=== PATIENT | female | born 1980 | race Caucasian/White ===

== ENCOUNTER 2023-02-24 19:37 | Emergency (ER) | payer SELFPAY ==
[2023-02-24 19:40] VITALS: BP 154/94; PULSE 80; RESP 18; TEMP 36.6; O2SAT 98; BMI 25.1
--- NOTE | 2023-02-24 19:52 | ED.SKABFB1 ---
HPI - Skin/Abscess/Foreign Bdy General Chief complaint: Skin/Abscess/Foreign Body Stated complaint: RASH Time Seen by Provider: 02/24/23 19:46 Source: patient Mode of arrival: walk-in Limitations: no limitations History of Present Illness HPI narrative: The patient have no significant past medical history coming to the ER with a rash that developed Tuesday which is 4 days ago on the right side of her arm then it spread to the right side of her face it is itchy as well as it is not associated with any other complaints of fever chills or any other concerns She did try some Benadryl and she was doing some yard work the day Patient denies any other complaints There was no history of any new foods or any new environmental changes Related Data Previous Rx's Medication Instructions Recorded diphenhydramine HCl 25 mg capsule 25 mg PO Q8H PRN allergic reaction 02/24/23 (Benadryl) #10 caps famotidine 20 mg tablet (Pepcid) 20 mg PO BID #10 tabs 02/24/23 prednisone 50 mg tablet 50 mg PO DAILY 6 days #6 tabs 02/24/23 Allergies Allergy/AdvReac Type Severity Reaction Status Date / Time No Known Drug Allergies Allergy Verified 02/24/23 19:43 Review of Systems ROS Status of ROS 10 or more systems reviewed and unremarkable except as noted in history and below [facility] Social History Smoking status: Current every day smoker Exam Narrative Exam Narrative: Nurses notes and vital signs reviewed and patient is not hypoxic. General: Well-appearing and in no apparent distress. Skin: Warm, dry, no pallor noted. No rash. Head: Normocephalic, atraumatic. Neck: Supple, non-tender. Eye: Pupils are equal, round and EOMI. No scleral icterus. Ears, Nose, Mouth, and Throat: TM are clear, no nasal mucosal hypertrophy. Oral mucosa is moist, no posterior oropharynx erythema, uvula is mid-line Cardiovascular: Regular Rate and Rhythm without murmur, gallop or rub. Respiratory: No accessory muscle use or respiratory distress. Lungs are clear to auscultation, no wheezing, rales or rhonchi Chest Wall: no tenderness Back: No midline thoracic or lumbar vertebral tenderness. No CVA tenderness Musculoskeletal: normal ROM, no calf or popliteal tenderness, no lower extremity edema/swelling GI: Abdomen is soft, non-distended. Normal bowel sounds. No masses appreciated. No tenderness to palpation. No rebound, guarding, or rigidity noted. Neurological: A&O x4. No cranial nerve dysfunction observed. No truncal ataxia. Moves all extremities. Sensation intact. Psychiatric: Cooperative and interactive. Normal mood and affect. Skin examination On the exterior surface of the right arm as well as the right side of the face the patient have maculopapular rash that is not vesicular not associated with any redness hotness or any signs of infection Constitutional Vital Signs, click to edit/add: Last Vital Signs Temp 98 F 02/24/23 19:40 Pulse 80 02/24/23 19:40 Resp 18 02/24/23 19:40 BP 154/94 H 02/24/23 19:40 Pulse Ox 98 02/24/23 19:40 O2 Del Method Room Air 02/24/23 19:40 Course Vital Signs Vital signs: Vital Signs Temperature 98 F 02/24/23 19:40 Pulse Rate 80 02/24/23 19:40 Respiratory Rate 18 02/24/23 19:40 Blood Pressure 154/94 H 02/24/23 19:40 Pulse Oximetry 98 02/24/23 19:40 Oxygen Delivery Method Room Air 02/24/23 19:40 Temperature 98 F 02/24/23 19:40 Pulse Rate 80 02/24/23 19:40 Respiratory Rate 18 02/24/23 19:40 Blood Pressure 154/94 H 02/24/23 19:40 Pulse Oximetry 98 02/24/23 19:40 Oxygen Delivery Method Room Air 02/24/23 19:40 MDM - Skin/Abscess/Foreign Bdy MDM Narrative Medical decision making narrative: The patient presentation is mostly secondary to contact dermatitis the patient right now was started on prednisone as well as Pepcid and Benadryl instructed to avoid any allergen Also to come back to us in case of any new symptoms of concern including fever or any progression of her symptoms The patient is to follow up with primary care physician in next 2-3 days or to return to the emergency department should any of the signs or symptoms worsen or new symptoms develop. The patient agrees with the following Diagnosis and Treatment plan and the patient will be discharged home. Discharge Plan Discharge Chief Complaint: Skin/Abscess/Foreign Body Clinical Impression: Contact dermatitis Patient Disposition: Home, Self-Care Time of Disposition Decision: 19:53 Condition: Good Mode of Transportation: Private Vehicle Prescriptions / Home Meds: New prednisone 50 mg tablet 50 mg PO DAILY 6 Days Qty: 6 0RF famotidine [Pepcid] 20 mg tablet 20 mg PO BID Qty: 10 0RF diphenhydramine HCl [Benadryl] 25 mg capsule 25 mg PO Q8H PRN (Reason: allergic reaction) Qty: 10 0RF Instructions: Contact Dermatitis (ED) Stand Alone Forms: Portal Instructions Referrals: Physician,Non-Staff, MD [Primary Care Provider] - 1 week
[2023-02-24 19:54] VITALS: O2SAT 99
--- NOTE | 2023-02-24 19:57 | PC.NURSE ---
Patient c/o rash to right side of face,neck, behind right ear spreading to bilateral arms. denies any use of new products, new clothing, bedding, or new foods. states she has not been in the forest but she has [place]rian behind her house that her dogs play in and possibly might have caught something from them. rash is slightly raised on right cheek and flat everywhere else. no drainage. states it is itching and painful. patient has not had any medications today.
[2023-02-24] MEDS: DIPHENHYDRAMINE HCL 25 MG CAPSULE PO (20:05)
[2023-02-24] MEDS: FAMOTIDINE 20 MG TABLET PO (20:05)
[2023-02-24] MEDS: PREDNISONE 20 MG TABLET 40 MG PO (20:05)
== END 2023-02-24 20:20 | disposition home or self-care (01) ==
PROVIDERS: Emergency Provider Emergency Medicine
DX: L25.9 Unspecified contact dermatitis, unspecified cause (principal); F17.210 Nicotine dependence, cigarettes, uncomplicated
CPT/HCPCS: 99283

== ENCOUNTER 2023-12-14 17:07 | Emergency (ER) | payer OTHER, SELFPAY ==
[2023-12-14 17:22] VITALS: BP 139/89; PULSE 83; TEMP 36.7; O2SAT 98; BMI 23.6
--- NOTE | 2023-12-14 17:28 | XR_ITS ---
The [address] [address] Patient Name: PALMA GORDON MRN: [id number] date: 1980 Sex: F Assigned Patient Location: ER Current Patient Location: ER Accession/Order Number: [id number] Exam Date: 12/14/2023 17:38 Report Date: 12/14/2023 18:18 At the request of: NITA BERRY Procedure: XR hand RT min 3V IMAGES REVIEWED: XR hand RT min 3V COMPARISON: None available. CLINICAL INDICATION: right hand/thumb pain FINDINGS/IMPRESSION: Unremarkable radiographic appearance of the right hand/first digit. Electronically authenticated by: SHAHLA CAMPUZANO Date: 12/14/2023 18:18
--- NOTE | 2023-12-14 17:28 | ED_ITS ---
HPI HPI - General Adult General Chief complaint: Extremity Injury, Upper Stated complaint: Upper Extremity Pain Time Seen by Provider: 12/14/23 17:27 Source: patient Mode of arrival: walk-in History of Present Illness HPI narrative: Patient is a 43-year-old female who presents to the emergency department for a 1 month history of pain along the right thumb. She complains of pain with flexion and extension of the right thumb. There has been no swelling, redness or direct injury. 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 No medications taken prior to arrival. She states her boyfriend wanted her to be evaluated which prompted her to come to the ER today after 1 month of symptoms. She has not been evaluated by her PCP or an orthopedist. She is not concerned for . Related Data Previous Rx's ?Medication ?Instructions ?Recorded diphenhydramine HCl 25 mg capsule 25 mg PO Q8H PRN allergic reaction 02/24/23 (Benadryl) #10 caps famotidine 20 mg tablet (Pepcid) 20 mg PO BID #10 tabs 02/24/23 prednisone 50 mg tablet 50 mg PO DAILY 6 days #6 tabs 02/24/23 ketorolac 10 mg tablet 10 mg PO TID PRN pain #10 tabs 12/14/23 prednisone 20 mg tablet 60 mg (3 x 20 mg) PO DAILY 3 days 12/14/23 #9 tabs Allergies Allergy/AdvReac Type Severity Reaction Status Date / Time No Known Drug Allergies Allergy Verified 12/14/23 17:25 Opioid HPI Opioid Management Most Recent Opioid Data: Last Pain Scale 6 12/14/23 17:50 Last MAR Pain Assessment 12/14/23 17:50 Review of Systems ROS Constitutional Denies: fever or chills Ears, nose, mouth, and throat Denies: throat pain or nasal congestion Respiratory Denies: shortness of breath Gastrointestinal Denies: nausea or vomiting Musculoskeletal Reports: extremity pain, joint pain and limited range of motion; Denies: back pain or neck pain Integumentary/Breast Denies: rash Neurological Denies: headache Hematologic/Lymphatic Denies: easy bruising or easy bleeding PFSH PFSH Social History Smoking status: Current every day smoker Exam Narrative Exam Narrative: Gen.: Awake, alert, in no distress Head: Normocephalic, atraumatic ENT: Moist mucous membranes Respiratory: No respiratory distress Extremities: No appreciable swelling, ecchymosis or obvious deformity of the right thumb. Diffusely mildly tender to palpation. Moderate pain with flexion and extension at the MCP joint. Psych: Normal mood and affect Neuro: No focal neuro deficit Skin: Warm, dry, intact Constitutional Vital Signs, click to edit/add: Last Vital Signs Temp 98.0 F 12/14/23 17:22 Pulse 83 12/14/23 17:22 Resp 18 12/14/23 17:22 BP 139/89 12/14/23 17:22 Pulse Ox 98 12/14/23 17:22 O2 Del Method Room Air 12/14/23 17:22 Course Vital Signs Vital signs: Vital Signs Temperature 98.0 F 12/14/23 17:22 Pulse Rate 83 12/14/23 17:22 Respiratory Rate 18 12/14/23 17:22 Blood Pressure 139/89 12/14/23 17:22 Pulse Oximetry 98 12/14/23 17:22 Oxygen Delivery Method Room Air 12/14/23 17:22 Temperature 98.0 F 12/14/23 17:22 Pulse Rate 83 12/14/23 17:22 Respiratory Rate 18 12/14/23 17:22 Blood Pressure 139/89 12/14/23 17:22 Pulse Oximetry 98 12/14/23 17:22 Oxygen Delivery Method Room Air 12/14/23 17:22 Medical Decision Making [facility] Narrative Medical decision making narrative: Exam is consistent with tendinitis, x-rays show no evidence of acute process and the patient is discharged home in a finger splint and Fabricio wrap and remains neurovascularly intact. She is referred to orthopedics. Return to the ER if symptoms change or worsen. Rest, ice, gentle stretching. Short course of steroids and NSAIDs were given for home Medical Records Medical records reviewed: Yes I reviewed the patient's medical records Imaging Data XR hand: Attestation: I have reviewed the pertinent imaging results. Discharge Plan Discharge Stand Alone Forms: Portal Instructions Chief Complaint: Extremity Injury, Upper Clinical Impression: Hand pain, right, Tendinitis Patient Disposition: Home, Self-Care Time of Disposition Decision: 18:23 Condition: Good Prescriptions / Home Meds: New prednisone 20 mg tablet 60 mg PO DAILY 3 Days Qty: 9 0RF ketorolac 10 mg tablet 10 mg PO TID PRN (Reason: pain) Qty: 10 0RF No Action prednisone 50 mg tablet 50 mg PO DAILY 6 Days Qty: 6 0RF famotidine [Pepcid] 20 mg tablet 20 mg PO BID Qty: 10 0RF diphenhydramine HCl [Benadryl] 25 mg capsule 25 mg PO Q8H PRN (Reason: allergic reaction) Qty: 10 0RF Print Language: Citizen [place] Instructions: Tendinitis (ED) Referrals: MILTON TALAVERA [Primary Care Provider] - 1 week Candelario Carrillo MD [Physician] - 1 week
[2023-12-14] MEDS: HYDROCODONE/ACET 5-325 MG TABLET 1 TAB PO (17:50)
[2023-12-14] MEDS: PREDNISONE 20 MG TABLET 60 MG PO (17:50)
== END 2023-12-14 18:33 | disposition home or self-care (01) ==
PROVIDERS: Emergency Provider Emergency Medicine; PCP Nurse Practitioner Family
DX: M77.8 Other enthesopathies, not elsewhere classified (principal); M79.641 Pain in right hand; F17.200 Nicotine dependence, unspecified, uncomplicated
CPT/HCPCS: 29130; 73130; 99283

== ENCOUNTER 2023-12-28 06:58 | Outpatient (OUT) | payer OTHER, SELFPAY ==
--- NOTE | 2023-12-28 07:00 | CA_ITS ---
Patient Name: PALMA GORDON MR#: [id number] : 1980 Exam Date: 12/28/2023 Ordering Doctor: MILTON TALAVERA CNP ECHOCARDIOGRAM REPORT PROCEDURE: CA ECHO DOPPLER COMPLETE INDICATIONS: Cardiac murmur, smoker COMPARISON: None. DESCRIPTION: COMPLETE ECHOCARDIOGRAM Real-time transthoracic echocardiography with 2D, M-mode, spectral and color flow Doppler performed. QUALITY: Technical quality was good. 59 , 117#, BP 142/76 LEFT VENTRICLE: Normal chamber size. Normal left ventricular wall thickness. Normal systolic function. LV EF: Normal left ventricular ejection fraction, (>55%). DIASTOLIC: Normal diastolic function. ATRIAL SEPTUM: Visually appears intact. LEFT ATRIUM: Normal chamber size. RIGHT ATRIUM: Normal chamber size. RIGHT VENTRICLE: Normal chamber size. Normal right ventricular systolic function. TRICUSPID VALVE: Normal mobility and thickness. No stenosis with trivial regurgitation. No evidence of pulmonary hypertension. RVSP 29 mmHg MITRAL VALVE: Normal mobility and thickness. No evidence of mitral valve stenosis. Mild mitral annular calcification. Trivial mitral regurgitation. AORTIC VALVE: No visible sclerosis. Normal leaflet mobility. No evidence of aortic valve stenosis. No aortic regurgitation. AORTIC ROOT: Normal diameter and appearance. PULMONIC VALVE: Normal thickness and mobility. No stenosis. Trivial regurgitation. PERICARDIUM: No evidence of pericardial effusion. IVC: Collapses with inspirations. PLEURA: CONCLUSION: 1. Normal ventricular size and function. LVEF is estimated at 60 to 65%. 2. No significant valvular dysfunction. 3. Normal right-sided pressures. 4. No pericardial effusion. Adult Echocardiography Procedure Report Left Ventricle LVEDD (3.7 - 5.6 cm): 3.48 cm LVESD (2.2 - 4.0 cm): 2.37 cm LVIVS thickness (0.6 - 1.2 cm): 0.91 cm LVPW thickness (0.5 - 1.0 cm): 0.79 cm e': 0.14 m/s E - e': 6.61 LVOT Max Gradient: 3.25 mm[Hg] LVOT Area (cm2): 0.90 m/s Peak Velocity (LVOT): 0.90 m/s Mean Velocity (LVOT): 0.59 m/s LVOT Diameter 2.06 cm Left Atrium LA Volume Index (2D A2C): 27.96 ml/m2 Left Atrium Systolic Dimension: 3.01 cm Mitral Valve MV E to A Ratio: 1.32 Mitral Valve A-Wave Peak Velocity: 0.69 m/s Mitral Valve E-Wave Peak Velocity: 0.90 m/s Right Ventricle Aorta AO Root Diam: 3.21 cm Aortic Valve AoV Area (Peak Bharath): 2.89 cm2, 2.89 cm2 AoV Area (VTI): 3.29 cm2, 3.29 cm2 Peak Velocity(Antegrade Flow): 1.04 m/s Peak Gradient(Antegrade Flow): 4.31 mm[Hg] Mean Velocity(Antegrade Flow): 0.71 m/s Mean Gradient(Antegrade Flow): 2.29 mm[Hg] Velocity Time Integral: 22.40 cm Tricuspid Valve Peak Velocity (Regurgitant Flow): 2.57 m/s Pulmonic Valve Peak Gradient: 3.16 mm[Hg], 4.56 mm[Hg] Right Atrium Dictated by: Jim Escalante M.D. on 12/30/2023 at 08:57 Approved by: Jim Escalante M.D. on 12/30/2023 at 09:01
--- OUTSIDE RECORDS SUMMARY | 2023-12-28 07:03 | XMS_ITS | CCD ---
Author Organization [facility] Care Team Providers Care Ac/Dc Rewinder Name Role Phone REQUEST, DR NONE LISTED Primary Care Unavaila ble DORENE, DR ADAL Hedrick Consulting Unavailable CATHERINE, DR ADAL Hedrick Attending Unavailable CATHERINE, DR ADAL Hedrick Admitting Unavailable DONOVAN, DR MILDRED Simental Attending Unavailabl e DONOVAN, DR MILDRED Simental Admitting Unavailabl e DONOVAN, DR MILDRED Simental Consulting Unavailabl e REQUEST, NONE LISTED Primary Care Unavaila ble Results Test Name Value Interpretation Reference Range Facility CBC AUTO DIFFon 12-13-2020 BASO # 0.0 103/ul Normal 0.0-0.1 [facility] Comment on above: Performed By: #### C BC #### [facility] [address] [place], [place] [address] Diandra Samina Basophils/100 WBC (Bld) 0.1 % Critically low 0.2-2.0 [facility] Comment on above: Performed By: #### C BC #### [facility] [address] [place], [place] [address] Diandra Samina EO # 0.0 103/ul Normal 0.0-0.7 [facility] Comment on above: Performed By: #### C BC #### [facility] [address] [place], [place] [address] Diandra Samina Eosinophils/100 WBC (Bld) 0.0 % Critically low 0.9-7.0 [facility] Comment on above: Performed By: #### C BC #### [facility] [address] [place], [place] [address] Diandra Samina Erythrocyte distribution width (RBC) [Ratio] 15.4 % Critically high 11.0-15.0 [facility] Comment on above: Performed By: #### C BC #### [facility] [address] [place] [address] Diandradayna Haas Hematocrit (Bld) [Volume fraction] 38.0 % Normal 36.0-48.0 [facility] Comment on above: Performed By: #### C BC #### [facility] [address] [place] [address] Diandra Samina Hemoglobin (Bld) [Mass/Vol] 12.8 g/dL Normal 12.0-16.0 [facility] Comment on above: Performed By: #### C BC #### [facility] [address] [place] [address] Diandra Samina IG # 0.03 10e3/ul Normal 0.00-0.03 [facility] Comment on above: Performed By: #### C BC #### [facility] [address] [place] [address] Diandra Samina IG % 0.3 % Normal 0.0-0.5 [facility] Comment on above: Performed By: #### C BC #### [facility] [address] [place] [address] Diandra Samina LYMPH # 0.7 103/ul Critically low 1.2-3.[address] [facility] Comment on above: Performed By: #### C BC #### [facility] [address] [place] [address] Diandra Haas Lymphocytes/100 WBC (Bld) 7.1 % Critically low 20.5-60.0 [facility] Comment on above: Performed By: #### C BC #### [facility] [address] [place] [address] Diandra Haas MANUAL DIFF REQ NO Normal [facility] Comment on above: Performed By: #### C BC #### [facility] [address] [place], [place] [address] Diandra Haas MCH (RBC) [Entitic mass] 30.0 pg Normal 26.7-34.0 [facility] Comment on above: Performed By: #### C BC #### [facility] [address] [place] [address] Diandradayna Coleen MCHC (RBC) [Mass/Vol] 33.7 g/dL Normal 29.9-35.2 [facility] Comment on above: Performed By: #### C BC #### [facility] [address] [id number] Diandra Haas MCV (RBC) [Entitic vol] 89.0 fL Normal 81.0-99.0 [facility] Comment on above: Performed By: #### C BC #### [facility] [address] [id number] Diandra Haas MONO # 0.1 103/ul Critically low 0.3-0.[address] [facility] Comment on above: Performed By: #### C BC #### [facility] [address] [place], [place] [address] Diandra Haas Monocytes/100 WBC (Bld) 0.5 % Critically low 1.7-12.0 [facility] Comment on above: Performed By: #### C BC #### [facility] [address] [id number] Diandra Coleen NEUT # 9.1 103/ul Critically high 1.4-6.5 [facility] Comment on above: Performed By: #### C BC #### [facility] [address] [place], [place] [address] Diandra Haas Neutrophils/100 WBC (Bld) 92.0 % Critically high 43.0-75.0 [facility] Comment on above: Performed By: #### C BC #### [facility] [address] [id number] Diandra Haas Platelet mean volume (Bld) [Entitic vol] 9.7 fL Normal 9.5-13.5 [facility] Comment on above: Performed By: #### C BC #### [facility] [address] [place], [place] [address] Diandradayna Coleen PLT 307 103/ul Normal 150-450 [facility] Comment on above: Performed By: #### C BC #### [facility] [address] [id number] Diandra Samina RBC 4.27 106/ul Normal 4.20-5.40 [facility] Comment on above: Performed By: #### C BC #### [facility] [address] [place], [place] [address] Diandra Samina WBC 9.9 103/ul Normal 4.0-11.0 [facility] Comment on above: Performed By: #### C BC #### [facility] [address] [id number] Diandradayna Haas PROF 14(COMP METB)on 021 Albumin [Mass/Vol] 4.1 g/dL Normal 3.5-5.0 [facility] Comment on above: Performed By: #### C MP #### [facility] [address] [place], [place] [address] Diandra Samina Albumin/Globulin [Mass ratio] 1.1 {ratio} Normal [facility] Comment on above: Performed By: #### C MP #### [facility] [address] [place], [place] [address] Diandra Samina ALP [Catalytic activity/Vol] 76 U/L Normal 38-126 [facility] Comment on above: Performed By: #### C MP #### [facility] [address] [place], [place] [address] Diandra Samina ALT [Catalytic activity/Vol] 15 U/L Normal 9-52 [facility] Comment on above: Performed By: #### C MP #### [facility] [address] [place], [place] [address] Diandra Samina Anion gap [Moles/Vol] 19.7 mmol/L Normal [facility] Comment on above: Performed By: #### C MP #### [facility] [address] [place], [place] [address] Diandra Samina AST [Catalytic activity/Vol] 10 U/L Critically low 14-36 [facility] Comment on above: Performed By: #### C MP #### [facility] [address] [place], [place] [address] Diandra Samina Bilirubin [Mass/Vol] 0.1 mg/dL Critically low 0.2-1.3 [facility] Comment on above: Performed By: #### C MP #### [facility] [address] [address] Diandra Samina Calcium [Mass/Vol] 9.3 mg/dL Normal 8.4-10.2 [facility] Comment on above: Performed By: #### C MP #### [facility] [address] [address] Diandra Samina Chloride [Moles/Vol] 108 mmol/L Critically high 98-107 [facility] Comment on above: Performed By: #### C MP #### [facility] [address] [place] [address] Diandra Samina CO2 [Moles/Vol] 21.5 mmol/L Critically low 22.0-30.0 [facility] Comment on above: Performed By: #### C MP #### [facility] [address] [place] [address] Diandra Samina Creatinine [Mass/Vol] 0.68 mg/dL Normal 0.52-1.04 [facility] Comment on above: Performed By: #### C MP #### [facility] [address] [place], [place] [address] Diandra Samina EGFR-AF BRITISH >60 Normal >=60 [facility] Comment on above: Performed By: #### C MP #### [facility] [address] [place] [address] Diandra Samina EGFR-NON AF BRITISH >60 Normal >=60 [facility] Comment on above: Performed By: #### C MP #### [facility] [address] [place], [place] [address] Diandra Samina Globulin (S) [Mass/Vol] 3.7 g/dL Normal [facility] Comment on above: Performed By: #### C MP #### [facility] [address] [place], [place] [address] Diandra Samina Glucose [Mass/Vol] 165 mg/dL Critically high 74-106 [facility] Comment on above: Performed By: #### C MP #### [facility] [address] [place] [address] Diandra Samina Potassium [Moles/Vol] 4.2 mmol/L Normal 3.4-5.0 [facility] Comment on above: Performed By: #### C MP #### [facility] [address] [id number] Diandra Samina Protein [Mass/Vol] 7.8 g/dL Normal 6.1-8.2 [facility] Comment on above: Performed By: #### C MP #### [facility] [address] [id number] Diandra Samina Sodium [Moles/Vol] 145 mmol/L Normal 137-145 [facility] Comment on above: Performed By: #### C MP #### [facility] [address] [place], [place] [address] Diandra Samina Urea nitrogen [Mass/Vol] 5.0 mg/dL Critically low 7.0-17.0 [facility] Comment on above: Performed By: #### C MP #### [facility] [address] [place] [address] Diandra Samina Urea nitrogen/Creatinin e [Mass ratio] 7.4 mg/mg Normal [facility] Comment on above: Performed By: #### C MP #### [facility] [address] [place], [place] [address] Diandra Haas PROTIMEon 12-13-2020 INR Coag (PPP) [Relative time] {INR} Normal [facility] Comment on above: Performed By: #### P TT, PT #### [facility] [address] [place], [place] [address] Diandradayna Haas INR GUIDELINES SEE BELOW Normal [facility] Comment on above: Result Comment: ESTRELLA RED INR: 2.0 - 3.0 CONDITIONS NOT LISTED BELOW 2.5 - 3.5 FOR PROSTHETIC HEART VALVE REPLACEMENT 2.5 - 3.5 RECURRENT THROMBOSIS Performed By: #### P TT, PT #### [facility] [address] [place], [place] [address] Diandra Haas PT Coag (PPP) [Time] 10.0 s Normal 9.0-11.6 [facility] Comment on above: Performed By: #### P TT, PT #### [facility] [address] [place], [place] [address] Diandra Haas PTTon 12-13-2020 aPTT Coag (Bld) [Time] 24.1 s Normal 22.3-36.2 [facility] Comment on above: Performed By: #### P TT, PT #### [facility] [address] [place], [place] [address] Diandra Haas CYTOLOGYon 04-12-2017 CYTOLOGY Specimen #: [id number] Physician: SEAN REYES D.O.SPECIMEN SUBMITTEDA: CERVICAL, SCREENING, FLUID FI NAL DIAGNOSISA. CERVICAL, SCREENING, FLUIDSatisfactory for interpretation.Negative for intraepithelial lesion or malignancy.Fungal organisms morphologically consistent with Tory species.This specimen has been analyzed by the [facility] Imaging System, [employer]™ed imaging and review system, which assists the laboratory inevaluating cells on ThinPrep Pap tests. Following automated imaging,selected morales from every slide are reviewed by a office manager executive assistant.ARI Finn(ASCP) (Electronic Signature) CL INICAL DATA HPV TESTING: YES, REFLEXClinical History:ROUTINESTAINSA: CERVICAL, SCREENING, FLUID THIN PREP Myla Enrique M.D., Laboratory DirectorPatient ID #: [id number] of Report: 04/15/2017Date of Procedure: 04/12/2017Date of Receipt: 04/13/2017Submitted by: SEAN REYES D.O.Location: Diagnostic interpretation performed at [facility] [place] [facility], [address] [place] [address].The Pap Smear is a screening test for cervical cancer. False negativeresults occur with all screening tests, emphasizing the need forrescreening at recommended intervals, and clinical correlation. Normal [facility] [place] [facility] Comment on above: Performed By: #### C ####See report for performing lab information. Encounters Encounter Date Encounter Type Care Provider Facility Start: 12-13-2020 End: 12-13-2020 ambulatory NONE LISTED REQUEST Facility: Start: 12-12-2020 End: 12-12-[address] MILDRED MAN Facility:[facility] Payers Date Payer Category Payer Unknown [id number] 1980 Unknown [id number] 1957 Self-pay [id number] Summary Purpose Family History No Family History Records FoundNo Family History Records Found Advance Directives No Advanced Directives Records FoundNo Advanced Directives Records Found Additional Source Comments INFORMATION SOURCE (unrecogn ized section and content) DATE CREATED AUTHOR 01/04/2018 [facility] [place] [facility] DATE CREATED AUTHOR AUTHOR'S ORGANIZ ATION 12/13/2020 [facility] RECORDS PERTAINING TO PATIENTS WHO ARE OR HAVE BEEN ENROLLED IN A CHEMICAL DEPENDENCY/SUBSTANCEABUSE PROGRAM, SOME INFORMATION MAY BE OMITTED. This clinical summary was aggregated from multiple sources. Caution should be exercised in using it in the provision of clinical care. This summary normalizes information from multiple sources, and as a consequence, information in this document may materially change the coding, format and clinical context of patient data. In addition, data may be omitted in some cases. CLINICAL DECISIONS SHOULD BE BASED ON THE PRIMARY CLINICAL RECORDS. [employer] provides no warranty or guarantee of the accuracy or completeness of information in this document.
[2023-12-28 08:10] LABS: Basophils Absolute Auto 0.1 10^3/uL (0.0-0.1); Basophils Percent Auto 0.6 % (0.2-2.0); Eosinophils Absolute Auto 0.2 10^3/uL (0.0-0.7); Eosinophils Percent Auto 1.4 % (0.9-7.0); Hemoglobin 12.7 g/dL (12.0-16.0); Immature Granulocytes Abs Auto 0.05 10^3/uL (0.00-0.03); Immature Granulocytes Pct Auto 0.4 % (0.0-0.5); Lymphocytes Absolute Auto 2.4 10^3/uL (1.2-3.8); Lymphocytes Percent Auto 19.5 % (20.5-60.0); Mean Corpuscular HGB Conc 32.6 g/dL (29.9-35.2); Mean Corpuscular Hemoglobin 29.6 pg (26.7-34.0); Mean Corpuscular Volume 90.9 fL (81.0-99.0); Mean Platelet Volume 10.1 fL (9.5-13.5); Monocytes Absolute Auto 0.7 10^3/uL (0.3-0.8); Monocytes Percent Auto 5.7 % (1.7-12.0); Neutrophils Percent Auto 72.4 % (43.0-75.0); Platelet Count 307 10^3/uL (150-450); Red Blood Count 4.29 10^6/uL (4.20-5.40); Red Cell Distribution Width 14.2 % (11.0-15.0); White Blood Count 12.4 10^3/uL (4.0-11.0)
[2023-12-28 08:28] LABS: Estimated Average Glucose 108 mg/dL; Glycohemoglobin A1C 5.4 % (4.5-6.2)
[2023-12-28 08:42] LABS: Alanine Aminotransferase 22 U/L (14-59); Albumin Globulin Ratio 0.9; Albumin Level 3.3 g/dL (3.4-5.0); Alkaline Phosphatase 83 U/L (46-116); Anion Gap 12.7; Aspartate Amino Transferase 10 U/L (15-37); BUN Creatinine Ratio 8.3; Bilirubin Total 0.3 mg/dL (0.2-1.0); Carbon Dioxide 24.9 mmol/L (21.0-32.0); Chloride 106 mmol/L (98-107); Chol HDL Ratio 4.4; Cholesterol 180 mg/dL (<=200); Estimated GFR (African America >60 (>=60); Estimated GFR (Non-African Ame >60 (>=60); Free T3 3.37 pg/mL (2.18-3.98); Globulin 3.6 g/dL; Glucose 100 mg/dL (74-106); HDL Cholesterol 41 mg/dL (40-60); LDL Cholesterol Calculated 123.2 mg/dL; Potassium 3.6 mmol/L (3.5-5.1); Sodium 140 mmol/L (136-145); Thyroid Stimulating Hormone 3.132 uIU/mL (0.358-3.740); Total Protein 6.9 g/dL (6.4-8.2); Triglycerides 79 mg/dL (<=150); VLDL CHOLESTEROL 15.8 mg/dL
[2023-12-29 07:10] LABS: Insulin 43.4 uIU/mL (2.6-24.9)
== END 2023-12-28 06:59 | disposition home or self-care (01) ==
LOC: CARD 07:01
PROVIDERS: PCP Nurse Practitioner Family; Visit Provider Nurse Practitioner Family
DX: Z00.00 Encounter for general adult medical examination without abnormal findings (principal); R01.1 Cardiac murmur, unspecified
CPT/HCPCS: 36415; 80053; 80061; 83036; 83525; 84436; 84443; 84481; 85025; 93306

== ENCOUNTER 2024-01-16 12:29 | Outpatient (OUT) | payer OTHER, SELFPAY ==
--- OUTSIDE RECORDS SUMMARY | 2024-01-16 12:37 | XMS_ITS | CCD ---
Author Organization [facility] InformFormerly [facility] Care Team Providers Care Office Machine Embossograph Operator Name Role Phone REQUEST, DR NONE LISTED [...] 12-13-2020 BASO # 0.0 103/ul Normal 0.0-0.1 [facility] Comment on above: Performed By: #### C BC #### [facility] [address] [place], [place] [address] Diandra Samina Basophils/100 WBC (Bld) 0.1 % Critically low 0.2-2.0 [facility] Comment on above: Performed By: #### C BC #### [facility] [address] [place], [place] [address] Diandra Samina EO # 0.0 103/ul Normal 0.0-0.7 [facility] Comment on above: Performed By: #### C BC #### [facility] [address] [place], [place] [address] Diandra Samina Eosinophils/100 WBC (Bld) 0.0 % Critically low 0.9-7.0 [facility] Comment on above: Performed By: #### C BC #### [facility] [address] [place], [place] [address] Diandra Samina Erythrocyte distribution width (RBC) [Ratio] 15.4 % Critically high 11.0-15.0 [facility] Comment on above: Performed By: #### C BC #### [facility] [address] [place] [address] Diandradayna Haas Hematocrit (Bld) [Volume fraction] 38.0 % Normal 36.0-48.0 [facility] Comment on above: Performed By: #### C BC #### [facility] [address] [place] [address] Diandra Samina Hemoglobin (Bld) [Mass/Vol] 12.8 g/dL Normal 12.0-16.0 [facility] Comment on above: Performed By: #### C BC #### [facility] [address] [place] [address] Diandra Samina IG # 0.03 10e3/ul Normal 0.00-0.03 [facility] Comment on above: Performed By: #### C BC #### [facility] [address] [place] [address] Diandra Samina IG % 0.3 % Normal 0.0-0.5 [facility] Comment on above: Performed By: #### C BC #### [facility] [address] [place] [address] Diandra Samina LYMPH # 0.7 103/ul Critically low 1.2-3.8 [facility] [place] [facility] Comment on above: Performed By: #### C BC #### [facility] [address] [place] [address] Diandra Haas Lymphocytes/100 WBC (Bld) 7.1 % Critically low 20.5-60.0 [facility] Comment on above: Performed By: #### C BC #### [facility] [address] [place] [address] Diandra Haas MANUAL DIFF REQ NO Normal [facility] Comment on above: Performed By: #### C BC #### [facility] [address] [place], [place] [id number] Diandra Haas MCH (RBC) [Entitic mass] 30.0 pg Normal 26.7-34.0 [facility] Comment on above: Performed By: #### C BC #### [facility] [address] [place] [address] Diandradayna Coleen MCHC (RBC) [Mass/Vol] 33.7 g/dL Normal 29.9-35.2 [facility] Comment on above: Performed By: #### C BC #### [facility] [address] [place] [id number] Diandra Haas MCV (RBC) [Entitic vol] 89.0 fL Normal 81.0-99.0 [facility] Comment on above: Performed By: #### C BC #### [facility] [address] [place] [id number] Diandra Haas MONO # 0.1 103/ul Critically low 0.3-0.8 [facility] [place] [facility] Comment on above: Performed By: #### C BC #### [facility] [address] [place], [place] [id number] Diandra Haas Monocytes/100 WBC (Bld) 0.5 % Critically low 1.7-12.0 [facility] Comment on above: Performed By: #### C BC #### [facility] [address] [place] [id number] Diandra Coleen NEUT # 9.1 103/ul Critically high 1.4-6.5 [facility] Comment on above: Performed By: #### C BC #### [facility] [address] [place], [place] [address] Diandra Haas Neutrophils/100 WBC (Bld) 92.0 % Critically high 43.0-75.0 [facility] Comment on above: Performed By: #### C BC #### [facility] [address] [place] [id number] Diandra Haas Platelet mean volume (Bld) [Entitic vol] 9.7 fL Normal 9.5-13.5 [facility] Comment on above: Performed By: #### C BC #### [facility] [address] [place], [place] [address] Diandradayna Coleen PLT 307 103/ul Normal 150-450 [facility] Comment on above: Performed By: #### C BC #### [facility] [address] [id number] Diandra Samina RBC 4.27 106/ul Normal 4.20-5.40 [facility] Comment on above: Performed By: #### C BC #### [facility] [address] [place], [place] [address] Diandra Samina WBC 9.9 103/ul Normal 4.0-11.0 [facility] Comment on above: Performed By: #### C BC #### [facility] [address] [place] [id number] Diandradayna Haas PROF 14(COMP METB)on 021 Albumin [Mass/Vol] 4.1 g/dL Normal 3.5-5.0 [facility] Comment on above: Performed By: #### C MP #### [facility] [address] [place], [place] [address] Diandra Samina Albumin/Globulin [Mass ratio] 1.1 {ratio} Normal [facility] Comment on above: Performed By: #### C MP #### [facility] [address] [place], [place] [address] Diandra Samina ALP [Catalytic activity/Vol] 76 U/L Normal 38-126 [facility] Comment on above: Performed By: #### C MP #### [facility] [address] [place], [place] [address] Diandra Samina ALT [Catalytic activity/Vol] 15 U/L Normal 9-52 [facility] Comment on above: Performed By: #### C MP #### [facility] [address] [place], [place] [address] Diandra Samina Anion gap [Moles/Vol] 19.7 mmol/L Normal [facility] Comment on above: Performed By: #### C MP #### [facility] [address] [place], [place] [address] Diandra Samina AST [Catalytic activity/Vol] 10 U/L Critically low 14-36 [facility] Comment on above: Performed By: #### C MP #### [facility] [address] [place], [place] [address] Diandra Samina Bilirubin [Mass/Vol] 0.1 mg/dL Critically low 0.2-1.3 [facility] Comment on above: Performed By: #### C MP #### [facility] [address] [place] [address] Diandra Samina Calcium [Mass/Vol] 9.3 mg/dL Normal 8.4-10.2 [facility] Comment on above: Performed By: #### C MP #### [facility] [address] [place] [address] Diandra Samina Chloride [Moles/Vol] 108 mmol/L Critically high 98-107 [facility] Comment on above: Performed By: #### C MP #### [facility] [address] [place] [address] Diandra Samina CO2 [Moles/Vol] 21.5 mmol/L Critically low 22.0-30.0 [facility] Comment on above: Performed By: #### C MP #### [facility] [address] [place] [address] Diandra Samina Creatinine [Mass/Vol] 0.68 mg/dL Normal 0.52-1.04 [facility] Comment on above: Performed By: #### C MP #### [facility] [address] [place], [place] [address] Diandra Samina EGFR-AF MALAGASY >60 Normal >=60 [facility] Comment on above: Performed By: #### C MP #### [facility] [address] [place] [address] Diandra Samina EGFR-NON AF MALAGASY >60 Normal >=60 [facility] Comment on above: Performed By: #### C MP #### [facility] [address] [place], [place] [address] Diandra Samina Globulin (S) [Mass/Vol] 3.7 g/dL Normal [facility] Comment on above: Performed By: #### C MP #### [facility] [address] [place], [place] [address] Diandra Samina Glucose [Mass/Vol] 165 mg/dL Critically high 74-106 [facility] Comment on above: Performed By: #### C MP #### [facility] [address] [place] [address] Diandra Samina Potassium [Moles/Vol] 4.2 mmol/L Normal 3.4-5.0 [facility] Comment on above: Performed By: #### C MP #### [facility] [address] [place] [id number] Diandra Samina Protein [Mass/Vol] 7.8 g/dL Normal 6.1-8.2 [facility] Comment on above: Performed By: #### C MP #### [facility] [address] [place] [id number] Diandra Samina Sodium [Moles/Vol] 145 mmol/L Normal 137-145 [facility] Comment on above: Performed By: #### C MP #### [facility] [address] [place], [place] [address] Diandra Samnia Urea nitrogen [Mass/Vol] 5.0 mg/dL Critically low 7.0-17.0 [facility] Comment on above: Performed By: #### C MP #### [facility] [address] [place] [address] Diandra Samina Urea nitrogen/Creatinin e [Mass ratio] 7.4 mg/mg Normal [facility] Comment on above: Performed By: #### C MP #### [facility] [address] [place], [place] [address] Diandra Haas PROTIMEon 12-13-2020 INR Coag (PPP) [Relative time] {INR} Normal [facility] Comment on above: Performed By: #### P TT, PT #### [facility] [address] [place], [place] [address] Diandradayna Haas INR GUIDELINES SEE BELOW Normal [facility] [place] [facility] Comment on above: Result Comment: ESTRELLA RED INR: 2.0 - 3.0 CONDITIONS NOT LISTED BELOW 2.5 - 3.5 FOR PROSTHETIC HEART VALVE REPLACEMENT 2.5 - 3.5 RECURRENT THROMBOSIS Performed By: #### P TT, PT #### [facility] [address] [place], [place] [address] Diandra Haas PT Coag (PPP) [Time] 10.0 s Normal 9.0-11.6 [facility] Comment on above: Performed By: #### P TT, PT #### [facility] [address] [place], [place] [address] Diandra Haas PTTon 12-13-2020 aPTT Coag (Bld) [Time] 24.1 s Normal 22.3-36.2 [facility] Comment on above: Performed By: #### P TT, PT #### [facility] [address] [place], [place] [address] Diandra Haas CYTOLOGYon 04-12-2017 CYTOLOGY Specimen #: [id number] Physician: SEAN REYES D.O.SPECIMEN SUBMITTEDA: CERVICAL, SCREENING, FLUID FI NAL DIAGNOSISA. CERVICAL, SCREENING, FLUIDSatisfactory for interpretation.Negative for intraepithelial lesion or malignancy.Fungal organisms morphologically consistent with Tory species.This specimen has been analyzed by the ThinPrep Imaging System, anaCarrier IQed imaging and review system, which assists the laboratory inevaluating cells on ThinPrep Pap tests. Following automated imaging,selected morales from every slide are reviewed by a retread technician.ARI Finn(ASCP) (Electronic Signature) CL INICAL DATA HPV TESTING: YES, REFLEXClinical History:ROUTINESTAINSA: CERVICAL, SCREENING, FLUID THIN PREP Myla Enrique M.D., Laboratory DirectorPatient ID #: [id number] of Report: 04/15/2017Date of Procedure: 04/12/2017Date of Receipt: 04/13/2017Submitted by: SEAN REYES D.O.Location: Diagnostic interpretation performed at [facility], [address] [place] [address].The Pap Smear is a screening test for cervical cancer. False negativeresults occur with all screening tests, emphasizing the need forrescreening at recommended intervals, and clinical correlation. Normal [facility] Comment on above: Performed By: #### C ####See report for performing lab information. Encounters Encounter Date Encounter Type Care Provider Facility Start: 12-13-2020 End: 12-13-2020 ambulatory NONE LISTED REQUEST Facility: Start: 12-12-2020 End: 12-12-[address] MILDRED MAN Facility:[facility] Payers Date Payer Category Payer Unknown [id number] 1980 Unknown [id number] 1957 Self-pay [id number] Summary Purpose Family History No Family History Records FoundNo Family History Records Found Advance Directives No Advanced Directives Records FoundNo Advanced Directives Records Found Additional Source Comments INFORMATION SOURCE (unrecogn ized section and content) DATE CREATED AUTHOR 01/04/2018 [facility] DATE CREATED AUTHOR AUTHOR'S ORGANIZ ATION [facility]ERTAIN[facility] TO PATIENTS WHO [...] BE BASED ON THE PRIMARY CLINICAL RECORDS. [employer] provides no warranty or guarantee of the accuracy or completeness of information in this document.
[2024-01-16 13:12] LABS: Basophils Absolute Auto 0.1 10^3/uL (0.0-0.1); Basophils Percent Auto 0.3 % (0.2-2.0); Eosinophils Absolute Auto 0.1 10^3/uL (0.0-0.7); Eosinophils Percent Auto 0.6 % (0.9-7.0); Hematocrit 38.1 % (36.0-48.0); Hemoglobin 12.9 g/dL (12.0-16.0); Immature Granulocytes Abs Auto 0.07 10^3/uL (0.00-0.03); Immature Granulocytes Pct Auto 0.4 % (0.0-0.5); Lymphocytes Absolute Auto 2.7 10^3/uL (1.2-3.8); Lymphocytes Percent Auto 16.5 % (20.5-60.0); Mean Corpuscular HGB Conc 33.9 g/dL (29.9-35.2); Mean Corpuscular Hemoglobin 30.8 pg (26.7-34.0); Mean Corpuscular Volume 90.9 fL (81.0-99.0); Mean Platelet Volume 10.4 fL (9.5-13.5); Monocytes Absolute Auto 0.9 10^3/uL (0.3-0.8); Monocytes Percent Auto 5.6 % (1.7-12.0); Neutrophils Absolute Auto 12.3 10^3/uL (1.4-6.5); Neutrophils Percent Auto 76.6 % (43.0-75.0); Platelet Count 333 10^3/uL (150-450); Red Blood Count 4.19 10^6/uL (4.20-5.40); Red Cell Distribution Width 14.3 % (11.0-15.0)
== END 2024-01-16 12:30 | disposition home or self-care (01) ==
LOC: LAB 12:32
PROVIDERS: PCP Nurse Practitioner Family; Visit Provider Nurse Practitioner Family
DX: D72.9 Disorder of white blood cells, unspecified (principal)
CPT/HCPCS: 36415; 85025

== ENCOUNTER 2024-01-31 07:31 | Outpatient (RCR) | payer OTHER, SELFPAY ==
[2024-01-31 13:19] LABS: Hematocrit 39.2 % (36.0-48.0); Mean Corpuscular HGB Conc 33.2 g/dL (29.9-35.2); Mean Corpuscular Hemoglobin 30.1 pg (26.7-34.0); Mean Corpuscular Volume 90.7 fL (81.0-99.0); Mean Platelet Volume 10.7 fL (9.5-13.5); Platelet Count 308 10^3/uL (150-450); Red Blood Count 4.32 10^6/uL (4.20-5.40); Red Cell Distribution Width 14.2 % (11.0-15.0); White Blood Count 12.9 10^3/uL (4.0-11.0)
[2024-01-31 13:50] LABS: C Reactive Protein 0.76 mg/dL (<=0.50); Lactate Dehydrogenase 154 U/L (81-234)
[2024-01-31 14:04] LABS: Percent Iron Saturation 5.4 %
[2024-01-31 14:15] LABS: Erythrocyte Sedimentation Rate 39 mm/hr (<=20)
[2024-01-31 14:28] LABS: Segmented Neut Absolute Manual 8.38 10^3/uL (1.4-6.5)
[2024-01-31 14:29] LABS: Eosinophils Absolute Manual 0.38 10^3/uL (0.00-0.70); Lymphocytes Absolute Manual 3.74 10^3/uL (1.20-3.80); Monocytes Absolute Manual 0.38 10^3/uL (0.30-0.80)
[2024-02-01 04:07] LABS: Rheumatoid Factor (RF) <10.0 IU/mL (<14.0)
[2024-02-01 12:10] LABS: ANA Direct Negative (Negative); Anti-CCP Ab, IgG/IgA 6 units (0-19)
[2024-02-01 16:10] LABS: Albumin 3.8 g/dL (2.9-4.4); Alpha-1-Globulin 0.3 g/dL (0.0-0.4); Alpha-2-Globulin 0.9 g/dL (0.4-1.0); Gamma Globulin 0.8 g/dL (0.4-1.8); Immunoglobulin A, Qn, Serum 230 mg/dL (87-352); Immunoglobulin G, Qn, Serum 800 mg/dL (586-1602); Immunoglobulin M, Qn, Serum 64 mg/dL (26-217); Protein, Total 6.9 g/dL (6.0-8.5)
[2024-02-06 16:09] LABS: HLA B 27 Disease Association Negative (.)
== END 2024-02-08 23:59 | disposition home or self-care (01) ==
LOC: HEMC 07:31
PROVIDERS: PCP Nurse Practitioner Family; Visit Provider Internal Medicine Hematology & Oncology
DX: D72.829 Elevated white blood cell count, unspecified (principal); Z80.9 Family history of malignant neoplasm, unspecified; F17.210 Nicotine dependence, cigarettes, uncomplicated; R53.82 Chronic fatigue, unspecified; R12 Heartburn; R73.03 Prediabetes; G62.9 Polyneuropathy, unspecified
CPT/HCPCS: 36415; 81374; 82728; 82784; 83540; 83550; 83615; 84155; 84165; 85007; 85027; 85652; 86038; 86140; 86200; 86334; 86431; G0463

== ENCOUNTER 2024-02-01 11:26 | Outpatient (OUT) | payer OTHER, SELFPAY ==
--- NOTE | 2024-02-01 11:30 | MM_ITS ---
Patient Name: PALMA GORDON MR#: [id number] : 1980 Exam Date: 02/01/2024 Ordering Doctor: Ct Mendiola RADIOLOGY REPORT PROCEDURE: MM TOMOSYNTHESIS SCREENING BI COMPARISON: None. INDICATIONS: Screening Calculator Name NCI Breast Cancer Risk Assessment Tool 5 Year Breast Cancer Risk 0.70% Lifetime Breast Cancer Risk 11.00% Personal Breast Cancer No Personal Ovarian Cancer No Treatments None Family Cancers None LOCATION: [facility] BREAST COMPOSITION: The breasts are extremely dense, which lowers the sensitivity of mammography. FINDINGS: DIAGNOSTIC CATEGORY 1--NEGATIVE. RIGHT BREAST: No significant suspicious finding. LEFT BREAST: No significant suspicious finding. RECOMMENDATIONS: ROUTINE MAMMOGRAM AND CLINICAL EVALUATION IN 12 MONTHS. PLEASE NOTE: A NORMAL MAMMOGRAM DOES NOT EXCLUDE THE POSSIBILITY OF BREAST CANCER. A CLINICALLY SUSPICIOUS PALPABLE LUMP SHOULD BE BIOPSIED. Dictated by: Harry Apodaca MD on 02/01/2024 at 13:27 Approved by: Harry Apodaca MD on 02/01/2024 at 13:28
--- OUTSIDE RECORDS SUMMARY | 2024-02-01 11:43 | XMS_ITS | CCD ---
Author Organization [facility] Team Providers Care Industrial Cleaning Technician Name Role Phone REQUEST, DR NONE LISTED [...] 12-13-2020 BASO # 0.0 103/ul Normal 0.0-0.1 [facility] Comment on above: Performed By: #### C BC #### [facility] [address], [place] [address] Diandra Samina Basophils/100 WBC (Bld) 0.1 % Critically low 0.2-2.0 [facility] Comment on above: Performed By: #### C BC #### [facility] [address], [place] [address] Diandra Samina EO # 0.0 103/ul Normal 0.0-0.7 [facility] Comment on above: Performed By: #### C BC #### [facility] [address], [place] [address] Diandra Samina Eosinophils/100 WBC (Bld) 0.0 % Critically low 0.9-7.0 [facility] Comment on above: Performed By: #### C BC #### [facility] [address], [place] [address] Diandra Samina Erythrocyte distribution width (RBC) [Ratio] 15.4 % Critically high 11.0-15.0 [facility] Comment on above: Performed By: #### C BC #### [facility] [address] [place] [address] Diandradayna Haas Hematocrit (Bld) [Volume fraction] 38.0 % Normal 36.0-48.0 [facility] Comment on above: Performed By: #### C BC #### [facility] [address] [place] [address] Diandra Samina Hemoglobin (Bld) [Mass/Vol] 12.8 g/dL Normal 12.0-16.0 [facility] Comment on above: Performed By: #### C BC #### [facility] [address] [place] [address] Diandra Samina IG # 0.03 10e3/ul Normal 0.00-0.03 [facility] Comment on above: Performed By: #### C BC #### [facility] [address] [place] [address] Diandra Samina IG % 0.3 % Normal 0.0-0.5 [facility] Comment on above: Performed By: #### C BC #### [facility] [address] [place] [address] Diandra Samina LYMPH # 0.7 103/ul Critically low 1.2-3.8 [facility] Comment on above: Performed By: #### C BC #### [facility] [address] [place] [address] Diandra Haas Lymphocytes/100 WBC (Bld) 7.1 % Critically low 20.5-60.0 [facility] Comment on above: Performed By: #### C BC #### [facility] [address] [place] [address] Diandra Haas MANUAL DIFF REQ NO Normal [facility] Comment on above: Performed By: #### C BC #### [facility] [address] [place], [place] [address] Diandra Haas MCH (RBC) [Entitic mass] 30.0 pg Normal 26.7-34.0 [facility] Comment on above: Performed By: #### C BC #### [facility] [address] [place] [address] Diandradayna Coleen MCHC (RBC) [Mass/Vol] 33.7 g/dL Normal 29.9-35.2 [facility] Comment on above: Performed By: #### C BC #### [facility] [address] [place] [id number] Diandra Haas MCV (RBC) [Entitic vol] 89.0 fL Normal 81.0-99.0 [facility] Comment on above: Performed By: #### C BC #### [facility] [address] [id number] Diandra Haas MONO # 0.1 103/ul Critically low 0.3-0.8 [facility] Comment on above: Performed By: #### C BC #### [facility] [address] [place], [place] [address] Diandra Haas Monocytes/100 WBC (Bld) 0.5 % Critically low 1.7-12.0 [facility] Comment on above: Performed By: #### C BC #### [facility] [address] [id number] Diandra Coleen NEUT # 9.1 103/ul Critically high 1.4-6.5 [facility] Comment on above: Performed By: #### C BC #### [facility] [address] [place], [place] [address] Diandra Haas Neutrophils/100 WBC (Bld) 92.0 % Critically high 43.0-75.0 [facility] Comment on above: Performed By: #### C BC #### [facility] [address] [id number] Diandra Haas Platelet mean volume (Bld) [Entitic vol] 9.7 fL Normal 9.5-13.5 [facility] Comment on above: Performed By: #### C BC #### [facility] [address] [place], [place] [address] Diandradayna Coleen PLT 307 103/ul Normal 150-450 [facility] Comment on above: Performed By: #### C BC #### [facility] [address] [id number] Diandra Samina RBC 4.27 106/ul Normal 4.20-5.40 [facility] Comment on above: Performed By: #### C BC #### [facility] [address] [place], [place] [address] Diandra Samina WBC 9.9 103/ul Normal 4.0-11.0 [facility] Comment on above: Performed By: #### C BC #### [facility] [address] [id number] Diandradayna Haas PROF 14(COMP METB)on 021 Albumin [Mass/Vol] 4.1 g/dL Normal 3.5-5.0 [facility] Comment on above: Performed By: #### C MP #### [facility] [address] [place], [place] [address] Diandra Samina Albumin/Globulin [Mass ratio] 1.1 {ratio} Normal [facility] Comment on above: Performed By: #### C MP #### [facility] [address] [place], [place] [address] Diandra Samina ALP [Catalytic activity/Vol] 76 U/L Normal 38-126 [facility] Comment on above: Performed By: #### C MP #### [facility] [address] [place], [place] [address] Diandra Samina ALT [Catalytic activity/Vol] 15 U/L Normal 9-52 [facility] Comment on above: Performed By: #### C MP #### [facility] [address] [place], [place] [address] Diandra Samina Anion gap [Moles/Vol] 19.7 mmol/L Normal [facility] Comment on above: Performed By: #### C MP #### [facility] [address] [place], [place] [address] Diandra Samina AST [Catalytic activity/Vol] 10 U/L Critically low 14-36 [facility] Comment on above: Performed By: #### C MP #### [facility] [address] [place], [place] [address] Diandra Samina Bilirubin [Mass/Vol] 0.1 mg/dL Critically low 0.2-1.3 [facility] Comment on above: Performed By: #### C MP #### [facility] [address] [place] [address] Diandra Samina Calcium [Mass/Vol] 9.3 mg/dL Normal 8.4-10.2 [facility] Comment on above: Performed By: #### C MP #### [facility] [address] [place] [address] Diandra Samina Chloride [Moles/Vol] 108 mmol/L Critically high 98-107 [facility] Comment on above: Performed By: #### C MP #### [facility] [address] [place] [address] Diandra Samina CO2 [Moles/Vol] 21.5 mmol/L Critically low 22.0-30.0 [facility] Comment on above: Performed By: #### C MP #### [facility] [address] [place] [address] Diandra Samina Creatinine [Mass/Vol] 0.68 mg/dL Normal 0.52-1.04 [facility] Comment on above: Performed By: #### C MP #### [facility] [address] [place], [place] [address] Diandra Samina EGFR-AF CHINESE >60 Normal >=60 [facility] Comment on above: Performed By: #### C MP #### [facility] [address] [place] [address] Diandra Samina EGFR-NON AF CHINESE >60 Normal >=60 [facility] Comment on above: Performed By: #### C MP #### [facility] [address] [place], [place] [address] Diandra Samina Globulin (S) [Mass/Vol] 3.7 g/dL Normal [facility] Comment on above: Performed By: #### C MP #### [facility] [address] [place], [place] [address] Diandra Samina Glucose [Mass/Vol] 165 mg/dL Critically high 74-106 [facility] Comment on above: Performed By: #### C MP #### [facility] [address] [place] [address] Diandra Samina Potassium [Moles/Vol] 4.2 mmol/L Normal 3.4-5.0 [facility] Comment on above: Performed By: #### C MP #### [facility] [address] [place] [id number] Diandra Samina Protein [Mass/Vol] 7.8 g/dL Normal 6.1-8.2 [facility] Comment on above: Performed By: #### C MP #### [facility] [address] [place] [id number] Diandra Samina Sodium [Moles/Vol] 145 mmol/L Normal 137-145 [facility] Comment on above: Performed By: #### C MP #### [facility] [address] [place], [place] [address] Diandra Samina Urea nitrogen [Mass/Vol] 5.0 mg/dL Critically low 7.0-17.0 [facility] Comment on above: Performed By: #### C MP #### [facility] [address] [place] [address] Diandra Samina Urea nitrogen/Creatinin e [Mass ratio] 7.4 mg/mg Normal [facility] Comment on above: Performed By: #### C MP #### [facility] [address] [place], [place] [address] Diandra Haas PROTIMEon 12-13-2020 INR Coag (PPP) [Relative time] {INR} Normal [facility] Comment on above: Performed By: #### P TT, PT #### [facility] [address] [place], [place] [address] Diandradayna Haas INR GUIDELINES SEE BELOW Normal [facility] Comment on above: Result Comment: ESTRELLA RED INR: 2.0 - 3.0 CONDITIONS NOT LISTED BELOW 2.5 - 3.5 FOR PROSTHETIC HEART VALVE REPLACEMENT 2.5 - 3.5 RECURRENT THROMBOSIS Performed By: #### P TT, PT #### [facility] [address] [place], [place] [address] Diandra Haas PT Coag (PPP) [Time] 10.0 s Normal 9.0-11.6 [facility] Comment on above: Performed By: #### P TT, PT #### [facility] [address] [place], [place] [address] Diandra Haas PTTon 12-13-2020 aPTT Coag (Bld) [Time] 24.1 s Normal 22.3-36.2 [facility] Comment on above: Performed By: #### P TT, PT #### [facility] [address] [place], [place] [address] Diandra Haas CYTOLOGYon 04-12-2017 CYTOLOGY Specimen #: [id number] Physician: SEAN REYES D.O.SPECIMEN SUBMITTEDA: CERVICAL, SCREENING, FLUID FI NAL DIAGNOSISA. CERVICAL, SCREENING, FLUIDSatisfactory for interpretation.Negative for intraepithelial lesion or malignancy.Fungal organisms morphologically consistent with Tory species.This specimen has been analyzed by the ThinPrep Imaging System, anaZoombued imaging and review system, which assists the laboratory inevaluating cells on ThinPrep Pap tests. Following automated imaging,selected morales from every slide are reviewed by a financial aid advisor.ARI Finn(ASCP) (Electronic Signature) CL INICAL DATA HPV TESTING: YES, REFLEXClinical History:ROUTINESTAINSA: CERVICAL, SCREENING, FLUID THIN PREP Myla Enrique M.D., Laboratory DirectorPatient ID #: [id number] of Report: 04/15/2017Date of Procedure: 04/12/2017Date of Receipt: 04/13/2017Submitted by: SEAN REYES D.O.Location: Diagnostic interpretation performed at [facility], [address] [place] [address].The Pap Smear is a screening test for cervical cancer. False negativeresults occur with all screening tests, emphasizing the need forrescreening at recommended intervals, and clinical correlation. Normal [facility] Comment on above: Performed By: #### C ####See report for performing lab information. Encounters Encounter Date Encounter Type Care Provider Facility Start: 12-13-2020 End: 12-13-2020 ambulatory NONE LISTED REQUEST Facility: Start: 12-12-2020 End: 12-12-[address] MILDRED MAN Facility:[facility] Payers Date Payer Category Payer Unknown [id number] 1980 Unknown [id number] 1957 Self-pay [id number] Summary Purpose Family History No Family History Records FoundNo Family History Records Found Advance Directives No Advanced Directives Records FoundNo Advanced Directives Records Found Additional Source Comments INFORMATION SOURCE (unrecogn ized section and content) DATE CREATED AUTHOR 01/04/2018 [facility] DATE CREATED AUTHOR AUTHOR'S ORGANIZ ATION [facility]2020 [facility] PERTAINING TO PATIENTS WHO [...] BE BASED ON THE PRIMARY CLINICAL RECORDS. [employer] provides no warranty or guarantee of the accuracy or completeness of information in this document.
== END 2024-02-01 11:27 | disposition home or self-care (01) ==
LOC: MAMMO 11:26
PROVIDERS: PCP Nurse Practitioner Family; Visit Provider Internal Medicine Hematology & Oncology
DX: D72.829 Elevated white blood cell count, unspecified (principal); Z12.31 Encounter for screening mammogram for malignant neoplasm of breast; Z80.9 Family history of malignant neoplasm, unspecified
CPT/HCPCS: 77063; 77067

== ENCOUNTER 2024-03-01 06:26 | Outpatient (RCR) | payer OTHER, SELFPAY ==
[2024-02-23 08:54] VITALS: BP 121/84; PULSE 82; TEMP 36.6; O2SAT 98
[2024-02-23] MEDS: FERUMOXYTOL 510 MG in 0.9 % SODIUM CHLORIDE 100 ML 234 MG IV (09:16)
--- NOTE | 2024-02-23 09:31 | PC.NURSE ---
0854: Pt. to [facility] amb. for iron infusion. Seated in recliner. VSS. IV initiated to left ac, see documentation. Tolerated with minimal c/o discomfort. Offered beverage, warm blanket, pt. declines. Denies needs.
--- NOTE | 2024-02-23 09:33 | PC.NURSE ---
0916: HALLIE Bhat initiated as ordered.
--- NOTE | 2024-02-23 10:19 | PC.NURSE ---
0950: IV Feraheme completed without s&s of adverse reaction. IV d/c'd, pressure to site. Pt. d/c'd amb. to home.
[2024-03-01 09:07] VITALS: BP 122/77; PULSE 71; TEMP 36.3; O2SAT 98
--- NOTE | 2024-03-01 09:15 | PC.NURSE ---
0857 Arrives ambulatory with steady gait. A&O x3. resp regular and non-labored. Moves ext. purposefully x4. #22 angio placed in left AC, tolerated well. Site without signs of infiltration at this time. Denies needs at this time.
[2024-03-01] MEDS: FERUMOXYTOL 510 MG in 0.9 % SODIUM CHLORIDE 100 ML 234 MG IV (09:35)
== END 2024-03-10 23:59 | disposition home or self-care (01) ==
LOC: HEMC 06:26
PROVIDERS: PCP Nurse Practitioner Family; Visit Provider Internal Medicine Hematology & Oncology
DX: D50.9 Iron deficiency anemia, unspecified (principal); D72.829 Elevated white blood cell count, unspecified; K90.9 Intestinal malabsorption, unspecified; Z80.9 Family history of malignant neoplasm, unspecified
CPT/HCPCS: 96365; G0463; Q0138

== ENCOUNTER 2024-04-17 07:57 | Outpatient (RCR) | payer OTHER, SELFPAY ==
[2024-04-17 10:26] LABS: Basophils Absolute Auto 0.1 10^3/uL (0.0-0.1); Basophils Percent Auto 0.6 % (0.2-2.0); Eosinophils Absolute Auto 0.1 10^3/uL (0.0-0.7); Eosinophils Percent Auto 1.4 % (0.9-7.0); Hematocrit 43.6 % (36.0-48.0); Hemoglobin 14.3 g/dL (12.0-16.0); Immature Granulocytes Abs Auto 0.03 10^3/uL (0.00-0.03); Immature Granulocytes Pct Auto 0.3 % (0.0-0.5); Lymphocytes Absolute Auto 2.1 10^3/uL (1.2-3.8); Lymphocytes Percent Auto 21.6 % (20.5-60.0); Mean Corpuscular HGB Conc 32.8 g/dL (29.9-35.2); Mean Corpuscular Hemoglobin 30.8 pg (26.7-34.0); Mean Corpuscular Volume 93.8 fL (81.0-99.0); Mean Platelet Volume 10.9 fL (9.5-13.5); Monocytes Absolute Auto 0.5 10^3/uL (0.3-0.8); Monocytes Percent Auto 4.8 % (1.7-12.0); Neutrophils Absolute Auto 6.9 10^3/uL (1.4-6.5); Neutrophils Percent Auto 71.3 % (43.0-75.0); Platelet Count 257 10^3/uL (150-450); Red Blood Count 4.65 10^6/uL (4.20-5.40); Red Cell Distribution Width 15.8 % (11.0-15.0); White Blood Count 9.7 10^3/uL (4.0-11.0)
[2024-04-17 11:21] LABS: Percent Iron Saturation 32.6 %
[2024-04-18 07:10] LABS: Vitamin B12 413 pg/mL (232-1245)
== END 2024-05-10 23:59 | disposition home or self-care (01) ==
LOC: HEMC 07:57
PROVIDERS: PCP Nurse Practitioner Family; Visit Provider Internal Medicine Hematology & Oncology
DX: D72.829 Elevated white blood cell count, unspecified (principal); F17.210 Nicotine dependence, cigarettes, uncomplicated; D50.9 Iron deficiency anemia, unspecified; K90.9 Intestinal malabsorption, unspecified; R12 Heartburn; R73.03 Prediabetes; R53.82 Chronic fatigue, unspecified
CPT/HCPCS: 36415; 82306; 82607; 82728; 83540; 83550; 85025; G0463

== ENCOUNTER 2024-06-07 18:18 | Emergency (ER) | payer OTHER, SELFPAY ==
[2024-06-07 18:21] VITALS: BP 136/103; PULSE 87; TEMP 36.6; O2SAT 99; BMI 22.6
--- OUTSIDE RECORDS SUMMARY | 2024-06-07 18:22 | XMS_ITS | CCD ---
Author Organization [facility] Team Providers Care Supervisor Pipelines Name Role Phone REQUEST, DR NONE LISTED [...] 12-13-2020 BASO # 0.0 103/ul Normal 0.0-0.1 [facility] Comment on above: Performed By: #### C BC #### [facility] [address], [place] [address] Diandra Samina Basophils/100 WBC (Bld) 0.1 % Critically low 0.2-2.0 [facility] Comment on above: Performed By: #### C BC #### [facility] [address] [place], [place] [address] Diandra Samina EO # 0.0 103/ul Normal 0.0-0.7 [facility] Comment on above: Performed By: #### C BC #### [facility] [address] [place] [id number] Diandra Samina Eosinophils/100 WBC (Bld) 0.0 % Critically low 0.9-7.0 [facility] Comment on above: Performed By: #### C BC #### [facility] [address] [place], [place] [address] Diandra Samina Erythrocyte distribution width (RBC) [Ratio] 15.4 % Critically high 11.0-15.0 [facility] Comment on above: Performed By: #### C BC #### [facility] [address] [place] [address] Diandradayna Haas Hematocrit (Bld) [Volume fraction] 38.0 % Normal 36.0-48.0 [facility] Comment on above: Performed By: #### C BC #### [facility] [address] [place] [address] Diandra Samina Hemoglobin (Bld) [Mass/Vol] 12.8 g/dL Normal 12.0-16.0 [facility] Comment on above: Performed By: #### C BC #### [facility] [address] [place] [address] Diandra Samina IG # 0.03 10e3/ul Normal 0.00-0.03 [facility] Comment on above: Performed By: #### C BC #### [facility] [address] [place] [address] Diandra Samina IG % 0.3 % Normal 0.0-0.5 [facility] Comment on above: Performed By: #### C BC #### [facility] [address] [place] [address] Diandra Samina LYMPH # 0.7 103/ul Critically low 1.2-3.8 [facility] Comment on above: Performed By: #### C BC #### [facility] [address] [place] [address] Diandra Haas Lymphocytes/100 WBC (Bld) 7.1 % Critically low 20.5-60.0 [facility] Comment on above: Performed By: #### C BC #### [facility] [address] [place] [address] Diandra Haas MANUAL DIFF REQ NO Normal [facility] Comment on above: Performed By: #### C BC #### [facility] [address] [place], [place] [id number] Diandra Haas MCH (RBC) [Entitic mass] 30.0 pg Normal 26.7-34.0 [facility] Comment on above: Performed By: #### C BC #### [facility] [address] [place] [address] Diandradayna Coleen MCHC (RBC) [Mass/Vol] 33.7 g/dL Normal 29.9-35.2 [facility] Comment on above: Performed By: #### C BC #### [facility] [address] [place] [id number] Diandra Haas MCV (RBC) [Entitic vol] 89.0 fL Normal 81.0-99.0 [facility] Comment on above: Performed By: #### C BC #### [facility] [address] [place] [id number] Diandra Haas MONO # 0.1 103/ul Critically low 0.3-0.8 [facility] Comment on above: Performed By: #### C BC #### [facility] [address] [place], [place] [address] Diandra Haas Monocytes/100 WBC (Bld) 0.5 % Critically low 1.7-12.0 [facility] Comment on above: Performed By: #### C BC #### [facility] [address] [place] [id number] Diandra Coleen NEUT # 9.1 103/ul Critically high 1.4-6.5 [facility] Comment on above: Performed By: #### C BC #### [facility] [address] [place], [place] [address] Diandra Haas Neutrophils/100 WBC (Bld) 92.0 % Critically high 43.0-75.0 [facility] Comment on above: Performed By: #### C BC #### [facility] [address] [place] [id number] Diandra Haas Platelet mean volume (Bld) [Entitic vol] 9.7 fL Normal 9.5-13.5 [facility] Comment on above: Performed By: #### C BC #### [facility] [address] [place], [place] [address] Diandradayna Coleen PLT 307 103/ul Normal 150-450 [facility] Comment on above: Performed By: #### C BC #### [facility] [address] [place] [id number] Diandra Samina RBC 4.27 106/ul Normal 4.20-5.40 [facility] Comment on above: Performed By: #### C BC #### [facility] [address] [place], [place] [address] Diandra Samina WBC 9.9 103/ul Normal 4.0-11.0 [facility] Comment on above: Performed By: #### C BC #### [facility] [address] [place] [id number] Diandradayna Haas PROF 14(COMP METB)on 021 Albumin [Mass/Vol] 4.1 g/dL Normal 3.5-5.0 [facility] Comment on above: Performed By: #### C MP #### [facility] [address] [place], [place] [address] Diandra Samina Albumin/Globulin [Mass ratio] 1.1 {ratio} Normal [facility] Comment on above: Performed By: #### C MP #### [facility] [address] [place], [place] [address] Diandra Samina ALP [Catalytic activity/Vol] 76 U/L Normal 38-126 [facility] Comment on above: Performed By: #### C MP #### [facility] [address] [place], [place] [address] Diandra Samina ALT [Catalytic activity/Vol] 15 U/L Normal 9-52 [facility] Comment on above: Performed By: #### C MP #### [facility] [address] [place], [place] [address] Diandra Samina Anion gap [Moles/Vol] 19.7 mmol/L Normal [facility] Comment on above: Performed By: #### C MP #### [facility] [address] [place], [place] [address] Diandra Samina AST [Catalytic activity/Vol] 10 U/L Critically low 14-36 [facility] Comment on above: Performed By: #### C MP #### [facility] [address] [place], [place] [address] Diandra Samina Bilirubin [Mass/Vol] 0.1 mg/dL Critically low 0.2-1.3 [facility] Comment on above: Performed By: #### C MP #### [facility] [address] [place] [address] Diandra Samina Calcium [Mass/Vol] 9.3 mg/dL Normal 8.4-10.2 [facility] Comment on above: Performed By: #### C MP #### [facility] [address] [place] [address] Diandra Samina Chloride [Moles/Vol] 108 mmol/L Critically high 98-107 [facility] Comment on above: Performed By: #### C MP #### [facility] [address] [place] [address] Diandra Samina CO2 [Moles/Vol] 21.5 mmol/L Critically low 22.0-30.0 [facility] Comment on above: Performed By: #### C MP #### [facility] [address] [place] [address] Diandra Samina Creatinine [Mass/Vol] 0.68 mg/dL Normal 0.52-1.04 [facility] Comment on above: Performed By: #### C MP #### [facility] [address] [place], [place] [address] Diandra Samina EGFR-AF [place] CITIZ[place] >60 Normal >=60 [facility] Comment on above: Performed By: #### C MP #### [facility] [address] [place] [address] Diandra Samina EGFR-NON AF [place]IZ[place] >60 Normal >=60 [facility] Comment on above: Performed By: #### C MP #### [facility] [address] [place], [place] [address] Diandra Samina Globulin (S) [Mass/Vol] 3.7 g/dL Normal [facility] Comment on above: Performed By: #### C MP #### [facility] [address] [place], [place] [address] Diandra Samina Glucose [Mass/Vol] 165 mg/dL Critically high 74-106 [facility] Comment on above: Performed By: #### C MP #### [facility] [address] [place] [address] Diandra Samina Potassium [Moles/Vol] 4.2 mmol/L Normal 3.4-5.0 [facility] Comment on above: Performed By: #### C MP #### [facility] [address] [place] [id number] Diandra Samina Protein [Mass/Vol] 7.8 g/dL Normal 6.1-8.2 [facility] Comment on above: Performed By: #### C MP #### [facility] [address] [place] [id number] Diandra Samina Sodium [Moles/Vol] 145 mmol/L Normal 137-145 [facility] Comment on above: Performed By: #### C MP #### [facility] [address] [place], [place] [address] Diandra Samina Urea nitrogen [Mass/Vol] 5.0 mg/dL Critically low 7.0-17.0 [facility] Comment on above: Performed By: #### C MP #### [facility] [address] [place] [address] Diandra Samina Urea nitrogen/Creatinin e [Mass ratio] 7.4 mg/mg Normal [facility] Comment on above: Performed By: #### C MP #### [facility] [address] [place], [place] [address] Diandra Haas PROTIMEon 12-13-2020 INR Coag (PPP) [Relative time] {INR} Normal [facility] Comment on above: Performed By: #### P TT, PT #### [facility] [address] [place], [place] [address] Diandradayna Haas INR GUIDELINES SEE BELOW Normal [facility] Comment on above: Result Comment: ESTRELLA RED INR: 2.0 - 3.0 CONDITIONS NOT LISTED BELOW 2.5 - 3.5 FOR PROSTHETIC HEART VALVE REPLACEMENT 2.5 - 3.5 RECURRENT THROMBOSIS Performed By: #### P TT, PT #### [facility] [address] [place], [place] [address] Diandra Haas PT Coag (PPP) [Time] 10.0 s Normal 9.0-11.6 [facility] Comment on above: Performed By: #### P TT, PT #### [facility] [address] [place], [place] [address] Diandra Haas PTTon 12-13-2020 aPTT Coag (Bld) [Time] 24.1 s Normal 22.3-36.2 [facility] Comment on above: Performed By: #### P TT, PT #### [facility] [address] [place], [place] [address] Diandra Haas CYTOLOGYon 04-12-2017 CYTOLOGY Specimen #: [id number] Physician: SEAN REYES D.O.SPECIMEN SUBMITTEDA: CERVICAL, SCREENING, FLUID FI NAL DIAGNOSISA. CERVICAL, SCREENING, FLUIDSatisfactory for interpretation.Negative for intraepithelial lesion or malignancy.Fungal organisms morphologically consistent with Tory species.This specimen has been analyzed by the ThinPrep Imaging System, anaFunamboled imaging and review system, which assists the laboratory inevaluating cells on ThinPrep Pap tests. Following automated imaging,selected morales from every slide are reviewed by a web designer.ARI Finn(ASCP) (Electronic Signature) CL INICAL DATA HPV TESTING: YES, REFLEXClinical History:ROUTINESTAINSA: CERVICAL, SCREENING, FLUID THIN PREP Myla Enrique M.D., Laboratory DirectorPatient ID #: [id number] of Report: 04/15/2017Date of Procedure: 04/12/2017Date of Receipt: 04/13/2017Submitted by: SEAN REYES D.O.Location: Diagnostic interpretation performed at [facility], [address] [place] [address].The Pap Smear is a screening test for cervical cancer. False negativeresults occur with all screening tests, emphasizing the need forrescreening at recommended intervals, and clinical correlation. Normal [facility] Comment on above: Performed By: #### C ####See report for performing lab information. Encounters Encounter Date Encounter Type Care Provider Facility Start: 12-13-2020 End: 12-13-2020 ambulatory NONE LISTED REQUEST Facility: Start: 12-12-2020 End: 12-12-[address] MILDRED MAN Facility:[facility] Payers Date Payer Category Payer Unknown [id number] 1980 Unknown [id number] 1957 Self-pay [id number] Summary Purpose Family History No Family History Records FoundNo Family History Records Found Advance Directives No Advanced Directives Records FoundNo Advanced Directives Records Found Additional Source Comments INFORMATION SOURCE (unrecogn ized section and content) DATE CREATED AUTHOR 01/04/2018 [facility] DATE CREATED AUTHOR AUTHOR'S ORGANIZ ATION [facility]2020 [facility] [place] [facility] PERT[facility]ING TO PATIENTS WHO [...] BE BASED ON THE PRIMARY CLINICAL RECORDS. [employer] provides no warranty or guarantee of the accuracy or completeness of information in this document.
--- NOTE | 2024-06-07 18:29 | ED.WOUNDLAC1 ---
HPI - Wound/Laceration General Chief Complaint: Wound/Laceration Stated Complaint: LACERATION HAND Time Seen by Provider: 06/07/24 18:25 Source: patient Mode of arrival: walk-in Limitations: no limitations History of Present Illness HPI narrative: 43-year-old female presents to the emergency department for laceration to her right hand sustained 12 hours ago on a vegetable slicer at home. It kept bleeding so she came in here today. No weakness or numbness in her fingers. It has been more than 10 years since she had a tetanus shot. Related Data Home Medications ?Medication ?Instructions ?Recorded ?Confirmed pantoprazole 20 mg tablet,delayed 20 mg PO Q12H 06/07/24 06/07/24 release Allergies Allergy/AdvReac Type Severity Reaction Status Date / Time No Known Drug Allergies Allergy Verified 12/14/23 17:25 Review of Systems ROS Narrative A ten point review of systems is negative except as noted above. PFSH PFS Social History Smoking status: Current every day smoker Exam Narrative Exam Narrative: Nurses note and vital signs reviewed and patient is not hypoxic. General: The patient appears well and in no apparent distress. Patient is resting comfortably on cart. Skin: Warm, dry, no pallor noted. There is no rash noted. Head: Normocephalic, atraumatic Eye: Normal conjunctiva, no drainage Ears, Nose, Mouth, and Throat: oral mucosa is moist. Nares patent. Cardiovascular: Regular Rate and Rhythm Respiratory: Patient is in no distress, no accessory muscle use Back: non-tender GI: Nontender Musculoskeletal: On the ulnar side of her right hand is a 1.5 cm laceration. There is no active bleeding or foreign body. Fingers have full range of motion. Neurological: A&O, normal speech Psychiatric: Cooperative Constitutional Vital Signs, click to edit/add: Last Vital Signs Temp 97.8 F 06/07/24 18:21 Pulse 87 06/07/24 18:21 Resp 18 06/07/24 18:21 BP 136/103 H 06/07/24 18:21 Pulse Ox 99 06/07/24 18:21 O2 Del Method Room Air 06/07/24 18:21 Course Vital Signs Vital signs: Vital Signs Temperature 97.8 F 06/07/24 18:21 Pulse Rate 87 06/07/24 18:21 Respiratory Rate 18 06/07/24 18:21 Blood Pressure 136/103 H 06/07/24 18:21 Pulse Oximetry 99 06/07/24 18:21 Oxygen Delivery Method Room Air 06/07/24 18:21 Temperature 97.8 F 06/07/24 18:21 Pulse Rate 87 06/07/24 18:21 Respiratory Rate 18 06/07/24 18:21 Blood Pressure 136/103 H 06/07/24 18:21 Pulse Oximetry 99 06/07/24 18:21 Oxygen Delivery Method Room Air 06/07/24 18:21 MDM - Wound/Laceration MDM Narrative Medical decision making narrative: This wound is more than 12 hours old and will not be closed with sutures today. Gelfoam and dressing applied which she will leave on for 48 hours and apply bandage daily. Tetanus was also updated. Findings are discussed with the patient. Differential Diagnosis Differential diagnosis: Likely laceration and avulsion of skin Discharge Plan Discharge Chief Complaint: Wound/Laceration Clinical Impression: Laceration of right hand Patient Disposition: Home, Self-Care Time of Disposition Decision: 18:29 Condition: Good Mode of Transportation: Private Vehicle Prescriptions / Home Meds: No Action pantoprazole 20 mg tablet,delayed release (DR/EC) 20 mg PO Q12H Print Language: Yoruba Instructions: Laceration Without Closure (ED) Additional Instructions: Leave dressing on for 48 hours. After removal apply bandage daily. Referrals: MILTON TALAVERA [Primary Care Provider] - 1 week
[2024-06-07] MEDS: ADACEL DIPH,PERTUSS(ACELL),TET VAC/PF 0.5 ML ADULT SYRINGE IM (18:46)
[2024-06-07] MEDS: SURGIFOAM GEL SPONGE SIZE 100 1 EACH TOPICAL (18:47)
== END 2024-06-07 18:56 | disposition home or self-care (01) ==
PROVIDERS: Emergency Provider Emergency Medicine; PCP Nurse Practitioner Family
DX: S61.411A Laceration without foreign body of right hand, initial encounter (principal); W45.8XXA Other foreign body or object entering through skin, initial encounter; W27.4XXA Contact with kitchen utensil, initial encounter; Z23 Encounter for immunization; F17.200 Nicotine dependence, unspecified, uncomplicated
CPT/HCPCS: 90471; 90715; 99284

== ENCOUNTER 2024-06-10 09:33 | Emergency (ER) | payer OTHER, SELFPAY ==
[2024-06-10 09:37] VITALS: BP 138/91; PULSE 89; TEMP 36.6; O2SAT 99; BMI 23.0
--- NOTE | 2024-06-10 09:55 | ED_ITS ---
HPI HPI - General Adult General Chief complaint: Extremity Injury, Upper Stated complaint: BANDAGE REMOVAL PROBLEMS Time Seen by Provider: 06/10/24 09:47 Source: patient and family Mode of arrival: walk-in Limitations: no limitations History of Present Illness HPI narrative: 43-year-old female presented for a wound check. She was seen here a few days ago and had cut her hand on vegetable slicer 12 hours previous to that visit. Gelfoam and dressing were applied and when she took the dressing off today as instructed the Gelfoam was stuck and she was concerned so she came in here. Related Data Home Medications ?Medication ?Instructions ?Recorded ?Confirmed pantoprazole 20 mg tablet,delayed 20 mg PO Q12H 06/07/24 06/07/24 release Allergies Allergy/AdvReac Type Severity Reaction Status Date / Time No Known Drug Allergies Allergy Verified 06/10/24 09:40 Opioid HPI Opioid Management Most Recent Opioid Data: Last Pain Scale 6 12/14/23 17:50 12/14/23 Review of Systems ROS Narrative A ten point review of systems is negative except as noted above. PFSH PFSH Social History Smoking status: Current every day smoker Little interest or pleasure in doing things: not at all Feeling down, depressed, or hopeless: not at all Exam Narrative Exam Narrative: Nurses note and vital signs reviewed and patient is not hypoxic. General: The patient appears well and in no apparent distress. Patient is resting comfortably on cart. Skin: Warm, dry, no pallor noted. There is no rash noted. Head: Normocephalic, atraumatic Eye: Normal conjunctiva, no drainage Ears, Nose, Mouth, and Throat: oral mucosa is moist. Nares patent. Cardiovascular: Regular Rate and Rhythm Respiratory: Patient is in no distress, no accessory muscle use Back: non-tender GI: Soft and nontender Musculoskeletal: The wound is healing well. There is Gelfoam at the center. Neurological: A&O, normal speech Psychiatric: Cooperative Constitutional Vital Signs, click to edit/add: Last Vital Signs Temp 97.9 F 06/10/24 09:37 Pulse 89 06/10/24 09:37 Resp 18 06/10/24 09:37 BP 138/91 06/10/24 09:37 Pulse Ox 99 06/10/24 09:37 O2 Del Method Room Air 06/10/24 09:37 Course Vital Signs Vital signs: Vital Signs Temperature 97.9 F 06/10/24 09:37 Pulse Rate 89 06/10/24 09:37 Respiratory Rate 18 06/10/24 09:37 Blood Pressure 138/91 06/10/24 09:37 Pulse Oximetry 99 06/10/24 09:37 Oxygen Delivery Method Room Air 06/10/24 09:37 Temperature 97.9 F 06/10/24 09:37 Pulse Rate 89 06/10/24 09:37 Respiratory Rate 18 06/10/24 09:37 Blood Pressure 138/91 06/10/24 09:37 Pulse Oximetry 99 06/10/24 09:37 Oxygen Delivery Method Room Air 06/10/24 09:37 Medical Decision Making MDM Narrative Medical decision making narrative: We have soaked her dressing and I have removed the vast majority of it. There is no evidence of an infection and there is no bleeding. Nonstick dressing applied and some supplies were sent home with her. Treatment diagnosis and follow-up were discussed with the patient. Differential Diagnosis Differential Diagnosis: Wound check Discharge Plan Discharge Chief Complaint: Extremity Injury, Upper Clinical Impression: Visit for wound check Patient Disposition: Home, Self-Care Time of Disposition Decision: 10:48 Condition: Good Mode of Transportation: Private Vehicle Prescriptions / Home Meds: No Action pantoprazole 20 mg tablet,delayed release (DR/EC) 20 mg PO Q12H Print Language: Sammarinese Instructions: Skin Avulsion (ED) Referrals: MILTON TALAVERA [Primary Care Provider] - 1 week
--- OUTSIDE RECORDS SUMMARY | 2024-06-10 09:55 | XMS_ITS | CCD ---
Author Organization [facility] hospital [facility] Care Team Providers Care Verification Clerk Name Role Phone REQUEST, DR NONE LISTED [...] 12-13-2020 BASO # 0.0 103/ul Normal 0.0-0.1 [facility] Comment on above: Performed By: #### C BC #### [facility] [address], [place] [address] Diandra Samina Basophils/100 WBC (Bld) 0.1 % Critically low 0.2-2.0 [facility] Comment on above: Performed By: #### C BC #### [facility] [address], [place] [address] Diandra Samina EO # 0.0 103/ul Normal 0.0-0.7 [facility] Comment on above: Performed By: #### C BC #### [facility] [address], [place] [address] Diandra Samina Eosinophils/100 WBC (Bld) 0.0 % Critically low 0.9-7.0 [facility] Comment on above: Performed By: #### C BC #### [facility] [address], [place] [address] Diandra Samina Erythrocyte distribution width (RBC) [Ratio] 15.4 % Critically high 11.0-15.0 [facility] Comment on above: Performed By: #### C BC #### [facility] [address] [place] [address] Diandradayna Haas Hematocrit (Bld) [Volume fraction] 38.0 % Normal 36.0-48.0 [facility] Comment on above: Performed By: #### C BC #### [facility] [address] [place] [address] Diandra Samina Hemoglobin (Bld) [Mass/Vol] 12.8 g/dL Normal 12.0-16.0 [facility] Comment on above: Performed By: #### C BC #### [facility] [address] [place] [address] Diandra Samina IG # 0.03 10e3/ul Normal 0.00-0.03 [facility] Comment on above: Performed By: #### C BC #### [facility] [address] [place] [address] Diandra Samina IG % 0.3 % Normal 0.0-0.5 [facility] Comment on above: Performed By: #### C BC #### [facility] [address] [place] [address] Diandra Samina LYMPH # 0.7 103/ul Critically low 1.2-3.8 [facility] Comment on above: Performed By: #### C BC #### [facility] [address] [place] [address] Diandra Haas Lymphocytes/100 WBC (Bld) 7.1 % Critically low 20.5-60.0 [facility] Comment on above: Performed By: #### C BC #### [facility] [address] [place] [address] Diandra Haas MANUAL DIFF REQ NO Normal [facility] [place] [facility] Comment on above: Performed By: #### C BC #### [facility] [address] [place], [place] [id number] Diandra Haas MCH (RBC) [Entitic mass] 30.0 pg Normal 26.7-34.0 [facility] Comment on above: Performed By: #### C BC #### [facility] [address] [place] [address] Diandradayna Coleen MCHC (RBC) [Mass/Vol] 33.7 g/dL Normal 29.9-35.2 [facility] Comment on above: Performed By: #### C BC #### [facility] [address] [place] [id number] Diandra Haas MCV (RBC) [Entitic vol] 89.0 fL Normal 81.0-99.0 [facility] Comment on above: Performed By: #### C BC #### [facility] [address] [place] [address] Diandra Haas MONO # 0.1 103/ul Critically low 0.3-0.8 [facility] Comment on above: Performed By: #### C BC #### [facility] [address] [place], [place] [address] Diandra Haas Monocytes/100 WBC (Bld) 0.5 % Critically low 1.7-12.0 [facility] Comment on above: Performed By: #### C BC #### [facility] [address] [place] [address] Diandra Coleen NEUT # 9.1 103/ul Critically high 1.4-6.5 [facility] [place] [facility] Comment on above: Performed By: #### C BC #### [facility] [address] [place], [place] [address] Diandra Haas Neutrophils/100 WBC (Bld) 92.0 % Critically high 43.0-75.0 [facility] Comment on above: Performed By: #### C BC #### [facility] [address] [place] [address] Diandra Haas Platelet mean volume (Bld) [Entitic vol] 9.7 fL Normal 9.5-13.5 [facility] Comment on above: Performed By: #### C BC #### [facility] [address] [place], [place] [address] Diandradayna Coleen PLT 307 103/ul Normal 150-450 [facility] Comment on above: Performed By: #### C BC #### [facility] [address] [place] [address] Diandra Samina RBC 4.27 106/ul Normal 4.20-5.40 [facility] Comment on above: Performed By: #### C BC #### [facility] [address], [place] [address] Diandra Samina WBC 9.9 103/ul Normal 4.0-11.0 [facility] Comment on above: Performed By: #### C BC #### [facility] [address] [place] [address] Diandradayna Haas PROF 14(COMP METB)on 021 Albumin [Mass/Vol] 4.1 g/dL Normal 3.5-5.0 [facility] Comment on above: Performed By: #### C MP #### [facility] [address] [place], [place] [address] Diandra Samina Albumin/Globulin [Mass ratio] 1.1 {ratio} Normal [facility] Comment on above: Performed By: #### C MP #### [facility] [address] [place], [place] [address] Diandra Samina ALP [Catalytic activity/Vol] 76 U/L Normal 38-126 [facility] Comment on above: Performed By: #### C MP #### [facility] [address] [place], [place] [address] Diandra Samina ALT [Catalytic activity/Vol] 15 U/L Normal 9-52 [facility] Comment on above: Performed By: #### C MP #### [facility] [address] [place], [place] [address] Diandra Samina Anion gap [Moles/Vol] 19.7 mmol/L Normal [facility] Comment on above: Performed By: #### C MP #### [facility] [address] [place], [place] [address] Diandra Samina AST [Catalytic activity/Vol] 10 U/L Critically low 14-36 [facility] Comment on above: Performed By: #### C MP #### [facility] [address] [place], [place] [address] Diandra Samina Bilirubin [Mass/Vol] 0.1 mg/dL Critically low 0.2-1.3 [facility] Comment on above: Performed By: #### C MP #### [facility] [address] [place] [address] Diandra Samina Calcium [Mass/Vol] 9.3 mg/dL Normal 8.4-10.2 [facility] Comment on above: Performed By: #### C MP #### [facility] [address] [place] [address] Diandra Samina Chloride [Moles/Vol] 108 mmol/L Critically high 98-107 [facility] Comment on above: Performed By: #### C MP #### [facility] [address] [place] [address] Diandra Samina CO2 [Moles/Vol] 21.5 mmol/L Critically low 22.0-30.0 [facility] Comment on above: Performed By: #### C MP #### [facility] [address] [place] [address] Diandra Samina Creatinine [Mass/Vol] 0.68 mg/dL Normal 0.52-1.04 [facility] Comment on above: Performed By: #### C MP #### [facility] [address] [place], [place] [address] Diandra Samina EGFR-AF UGANDAN >60 Normal >=60 [facility] Comment on above: Performed By: #### C MP #### [facility] [address] [place] [address] Diandra Samina EGFR-NON AF UGANDAN >60 Normal >=60 [facility] Comment on above: Performed By: #### C MP #### [facility] [address] [place], [place] [address] Diandra Samina Globulin (S) [Mass/Vol] 3.7 g/dL Normal [facility] Comment on above: Performed By: #### C MP #### [facility] [address] [place], [place] [address] Diandra Samina Glucose [Mass/Vol] 165 mg/dL Critically high 74-[address] [facility] Comment on above: Performed By: #### C MP #### [facility] [address] [place] [address] Diandra Samina Potassium [Moles/Vol] 4.2 mmol/L Normal 3.4-5.0 [facility] Comment on above: Performed By: #### C MP #### [facility] [address] [place] [address] Diandra Samina Protein [Mass/Vol] 7.8 g/dL Normal 6.1-8.2 [facility] Comment on above: Performed By: #### C MP #### [facility] [address] [place] [address] Diandra Samina Sodium [Moles/Vol] 145 mmol/L Normal 137-145 [facility] Comment on above: Performed By: #### C MP #### [facility] [address] [place], [place] [address] Diandra Samina Urea nitrogen [Mass/Vol] 5.0 mg/dL Critically low 7.0-17.0 [facility] Comment on above: Performed By: #### C MP #### [facility] [address] [place] [address] Diandra Samina Urea nitrogen/Creatinin e [Mass ratio] 7.4 mg/mg Normal [facility] Comment on above: Performed By: #### C MP #### [facility] [address] [place], [place] [address] Diandra Haas PROTIMEon 12-13-2020 INR Coag (PPP) [Relative time] {INR} Normal [facility] Comment on above: Performed By: #### P TT, PT #### [facility] [address] [place], [place] [address] Diandradayna Haas INR GUIDELINES SEE BELOW Normal [facility] Comment on above: Result Comment: ESTRELLA RED INR: 2.0 - 3.0 CONDITIONS NOT LISTED BELOW 2.5 - 3.5 FOR PROSTHETIC HEART VALVE REPLACEMENT 2.5 - 3.5 RECURRENT THROMBOSIS Performed By: #### P TT, PT #### [facility] [address] [place], [place] [address] Diandra Haas PT Coag (PPP) [Time] 10.0 s Normal 9.0-11.6 [facility] Comment on above: Performed By: #### P TT, PT #### [facility] [address], [place] [address] Diandra Haas PTTon 12-13-2020 aPTT Coag (Bld) [Time] 24.1 s Normal 22.3-36.2 [facility] Comment on above: Performed By: #### P TT, PT #### [facility] [address], [place] [address] Diandra Haas CYTOLOGYon 04-12-2017 CYTOLOGY Specimen #: [id number] Physician: SEAN REYES D.O.SPECIMEN SUBMITTEDA: CERVICAL, SCREENING, FLUID FI NAL DIAGNOSISA. 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 Following automated imaging,selected morales from every slide are reviewed by a grinding and spraying supervisor.ARI Finn(ASCP) (Electronic Signature) CL INICAL DATA HPV TESTING: YES, REFLEXClinical History:ROUTINESTAINSA: CERVICAL, SCREENING, FLUID THIN PREP Myla Enrique M.D., Laboratory DirectorPatient ID #: [id number] of Report: 04/15/2017Date of Procedure: 04/12/2017Date of Receipt: 04/13/2017Submitted by: SEAN REYES D.O.Location: Diagnostic interpretation performed at [facility], [address] [place] [address].The Pap Smear is a screening test for cervical cancer. False negativeresults occur with all screening tests, emphasizing the need forrescreening at recommended intervals, and clinical correlation. Normal [facility] Comment on above: Performed By: #### C ####See report for performing lab information. Encounters Encounter Date Encounter Type Care Provider Facility Start: 12-13-2020 End: 12-13-2020 ambulatory NONE LISTED REQUEST Facility: Start: 12-12-2020 End: 12-12-[address] MILDRED MAN Facility:[facility] Payers Date Payer Category Payer Unknown [id number] 1980 Unknown [id number] 1957 Self-pay [id number] Summary Purpose Family History No Family History Records FoundNo Family History Records Found Advance Directives No Advanced Directives Records FoundNo Advanced Directives Records Found Additional Source Comments INFORMATION SOURCE (unrecogn ized section and content) DATE CREATED AUTHOR 01/04/2018 [facility] DATE CREATED AUTHOR AUTHOR'S ORGANIZ ATION 12/13/2020 [facility] FOR RECORDS PERTAINING TO PATIENTS WHO ARE [...] BE BASED ON THE PRIMARY CLINICAL RECORDS. [employer] provides no warranty or guarantee of the accuracy or completeness of information in this document.
== END 2024-06-10 10:54 | disposition home or self-care (01) ==
PROVIDERS: Emergency Provider Emergency Medicine; PCP Nurse Practitioner Family
DX: S61.411D Laceration without foreign body of right hand, subsequent encounter (principal); W45.8XXD Other foreign body or object entering through skin, subsequent encounter
CPT/HCPCS: 99282

== ENCOUNTER 2024-06-21 12:17 | Outpatient (REF) | payer OTHER, SELFPAY ==
--- OUTSIDE RECORDS SUMMARY | 2024-06-21 12:21 | XMS_ITS | CCD ---
[facility] Organization [facility] Providers Care Horticultural Farmworker Name Role Phone REQUEST, DR NONE LISTED [...] 12-13-2020 BASO # 0.0 103/ul Normal 0.0-0.1 [facility] Comment on above: Performed By: #### C BC #### [facility] [address] [place], [place] [address] Diandra Samina Basophils/100 WBC (Bld) 0.1 % Critically low 0.2-2.0 [facility] Comment on above: Performed By: #### C BC #### [facility] [address] [place], [place] [address] Diandra Samina EO # 0.0 103/ul Normal 0.0-0.7 [facility] Comment on above: Performed By: #### C BC #### [facility] [address] [place] [id number] Diandra Samina Eosinophils/100 WBC (Bld) 0.0 % Critically low 0.9-7.0 [facility] Comment on above: Performed By: #### C BC #### [facility] [address] [place] [id number] Diandra Samina Erythrocyte distribution width (RBC) [Ratio] 15.4 % Critically high 11.0-15.0 [facility] Comment on above: Performed By: #### C BC #### [facility] [address] [place] [address] Diandradayna Haas Hematocrit (Bld) [Volume fraction] 38.0 % Normal 36.0-48.0 [facility] Comment on above: Performed By: #### C BC #### [facility] [address] [place] [address] Diandra Samina Hemoglobin (Bld) [Mass/Vol] 12.8 g/dL Normal 12.0-16.0 [facility] Comment on above: Performed By: #### C BC #### [facility] [address] [place] [address] Diandra Samina IG # 0.03 10e3/ul Normal 0.00-0.03 [facility] Comment on above: Performed By: #### C BC #### [facility] [address] [place] [address] Diandra Samina IG % 0.3 % Normal 0.0-0.5 [facility] Comment on above: Performed By: #### C BC #### [facility] [address] [place] [address] Diandra Samina LYMPH # 0.7 103/ul Critically low 1.2-3.8 [facility] Comment on above: Performed By: #### C BC #### [facility] [address] [place] [address] Diandra Haas Lymphocytes/100 WBC (Bld) 7.1 % Critically low 20.5-60.0 [facility] Comment on above: Performed By: #### C BC #### [facility] [address] [place] [address] Diandra Haas MANUAL DIFF REQ NO Normal [facility] Comment on above: Performed By: #### C BC #### [facility] [address] [place], [place] [id number] Diandra Haas MCH (RBC) [Entitic mass] 30.0 pg Normal 26.7-34.0 [facility] Comment on above: Performed By: #### C BC #### [facility] [address] [place] [address] Diandradayna Coleen MCHC (RBC) [Mass/Vol] 33.7 g/dL Normal 29.9-35.2 [facility] Comment on above: Performed By: #### C BC #### [facility] [address] [id number] Diandra Haas MCV (RBC) [Entitic vol] 89.0 fL Normal 81.0-99.0 [facility] Comment on above: Performed By: #### C BC #### [facility] [address] [place] [id number] Diandra Haas MONO # 0.1 103/ul Critically low 0.3-0.8 [facility] Comment on above: Performed By: #### C BC #### [facility] [address] [place], [place] [address] Diandra Haas Monocytes/100 WBC (Bld) 0.5 % Critically low 1.7-12.0 [facility] Comment on above: Performed By: #### C BC #### [facility] [address] [id number] Diandra Coleen NEUT # 9.1 103/ul Critically high 1.4-6.5 [facility] Comment on above: Performed By: #### C BC #### [facility] [address] [place], [place] [address] Diandra Haas Neutrophils/100 WBC (Bld) 92.0 % Critically high 43.0-75.0 [facility] Comment on above: Performed By: #### C BC #### [facility] [address] [id number] Diandra Haas Platelet mean volume (Bld) [Entitic vol] 9.7 fL Normal 9.5-13.5 [facility] Comment on above: Performed By: #### C BC #### [facility] [address] [place], [place] [address] Diandradayna Coleen PLT 307 103/ul Normal 150-450 [facility] Comment on above: Performed By: #### C BC #### [facility] [address] [id number] Diandra Samina RBC 4.27 106/ul Normal 4.20-5.40 [facility] Comment on above: Performed By: #### C BC #### [facility] [address] [place], [place] [address] Diandra Samina WBC 9.9 103/ul Normal 4.0-11.0 [facility] Comment on above: Performed By: #### C BC #### [facility] [address] [id number] Diandradayna Haas PROF 14(COMP METB)on 021 Albumin [Mass/Vol] 4.1 g/dL Normal 3.5-5.0 [facility] Comment on above: Performed By: #### C MP #### [facility] [address] [place], [place] [address] Diandra Samina Albumin/Globulin [Mass ratio] 1.1 {ratio} Normal [facility] Comment on above: Performed By: #### C MP #### [facility] [address] [place], [place] [address] Diandra Samina ALP [Catalytic activity/Vol] 76 U/L Normal 38-126 [facility] Comment on above: Performed By: #### C MP #### [facility] [address] [place], [place] [address] Diandra Samina ALT [Catalytic activity/Vol] 15 U/L Normal 9-52 [facility] Comment on above: Performed By: #### C MP #### [facility] [address] [place], [place] [address] Diandra Samina Anion gap [Moles/Vol] 19.7 mmol/L Normal [facility] Comment on above: Performed By: #### C MP #### [facility] [address] [place], [place] [address] Diandra Samina AST [Catalytic activity/Vol] 10 U/L Critically low 14-36 [facility] Comment on above: Performed By: #### C MP #### [facility] [address] [place], [place] [address] Diandra Samina Bilirubin [Mass/Vol] 0.1 mg/dL Critically low 0.2-1.3 [facility] Comment on above: Performed By: #### C MP #### [facility] [address] [place] [address] Diandra Samina Calcium [Mass/Vol] 9.3 mg/dL Normal 8.4-10.2 [facility] Comment on above: Performed By: #### C MP #### [facility] [address] [place] [address] Diandra Samina Chloride [Moles/Vol] 108 mmol/L Critically high 98-107 [facility] Comment on above: Performed By: #### C MP #### [facility] [address] [place] [address] Diandra Samina CO2 [Moles/Vol] 21.5 mmol/L Critically low 22.0-30.0 [facility] Comment on above: Performed By: #### C MP #### [facility] [address] [place] [address] Diandra Samina Creatinine [Mass/Vol] 0.68 mg/dL Normal 0.52-1.04 [facility] Comment on above: Performed By: #### C MP #### [facility] [address] [place], [place] [address] Diandra Samina EGFR-AF HAITIAN >60 Normal >=60 [facility] Comment on above: Performed By: #### C MP #### [facility] [address] [place] [address] Diandra Samina EGFR-NON AF HAITIAN >60 Normal >=60 [facility] Comment on above: Performed By: #### C MP #### [facility] [address] [place], [place] [address] Diandra Samina Globulin (S) [Mass/Vol] 3.7 g/dL Normal [facility] Comment on above: Performed By: #### C MP #### [facility] [address] [place], [place] [address] Diandra Samina Glucose [Mass/Vol] 165 mg/dL Critically high 74-106 [facility] Comment on above: Performed By: #### C MP #### [facility] [address] [place] [address] Diandra Samina Potassium [Moles/Vol] 4.2 mmol/L Normal 3.4-5.0 [facility] Comment on above: Performed By: #### C MP #### [facility] [address] [id number] Diandra Samina Protein [Mass/Vol] 7.8 g/dL Normal 6.1-8.2 [facility] Comment on above: Performed By: #### C MP #### [facility] [address] [place] [id number] Diandra Samina Sodium [Moles/Vol] 145 mmol/L Normal 137-145 [facility] Comment on above: Performed By: #### C MP #### [facility] [address] [place], [place] [address] Diandra Samina Urea nitrogen [Mass/Vol] 5.0 mg/dL Critically low 7.0-17.0 [facility] Comment on above: Performed By: #### C MP #### [facility] [address] [place] [address] Diandra Samina Urea nitrogen/Creatinin e [Mass ratio] 7.4 mg/mg Normal [facility] Comment on above: Performed By: #### C MP #### [facility] [address] [place], [place] [address] Diandra Haas PROTIMEon 12-13-2020 INR Coag (PPP) [Relative time] {INR} Normal [facility] Comment on above: Performed By: #### P TT, PT #### [facility] [address] [place], [place] [address] Diandradayna Haas INR GUIDELINES SEE BELOW Normal [facility] Comment on above: Result Comment: ESTRELLA RED INR: 2.0 - 3.0 CONDITIONS NOT LISTED BELOW 2.5 - 3.5 FOR PROSTHETIC HEART VALVE REPLACEMENT 2.5 - 3.5 RECURRENT THROMBOSIS Performed By: #### P TT, PT #### [facility] [address] [place], [place] [address] Diandra Haas PT Coag (PPP) [Time] 10.0 s Normal 9.0-11.6 [facility] Comment on above: Performed By: #### P TT, PT #### [facility] [address] [place], [place] [address] Diandra Haas PTTon 12-13-2020 aPTT Coag (Bld) [Time] 24.1 s Normal 22.3-36.2 [facility] Comment on above: Performed By: #### P TT, PT #### [facility] [address] [place], [place] [address] Diandra Haas CYTOLOGYon 04-12-2017 CYTOLOGY Specimen #: [id number] Physician: SEAN REYES D.O.SPECIMEN SUBMITTEDA: CERVICAL, SCREENING, FLUID FI NAL DIAGNOSISA. CERVICAL, SCREENING, FLUIDSatisfactory for interpretation.Negative for intraepithelial lesion or malignancy.Fungal organisms morphologically consistent with Tory species.This specimen has been analyzed by the ThinPrep Imaging System, [employer] Auto [employer]ed imaging and review system, which assists the laboratory inevaluating cells on ThinPrep Pap tests. Following automated imaging,selected morales from every slide are reviewed by a seconds handler.ARI Finn(ASCP) (Electronic Signature) CL INICAL DATA HPV TESTING: YES, REFLEXClinical History:ROUTINESTAINSA: CERVICAL, SCREENING, FLUID THIN PREP Myla Enrique M.D., Laboratory DirectorPatient ID #: [id number] of Report: 04/15/2017Date of Procedure: 04/12/2017Date of Receipt: 04/13/2017Submitted by: SEAN REYES D.O.Location: Diagnostic interpretation performed at [facility], [address] [place] [address].The Pap Smear is a screening test for cervical cancer. False negativeresults occur with all screening tests, emphasizing the need forrescreening at recommended intervals, and clinical correlation. Normal [facility] Comment on above: Performed By: #### C ####See report for performing lab information. Encounters Encounter Date Encounter Type Care Provider Facility Start: 12-13-2020 End: 12-13-2020 ambulatory NONE LISTED REQUEST Facility: Start: 12-12-2020 End: 12-12-[address] MILDRED MAN Facility:[facility] Payers Date Payer Category Payer Unknown [id number] 1980 Unknown [id number] 1957 Self-pay [id number] Summary Purpose Family History No Family History Records FoundNo Family History Records Found Advance Directives No Advanced Directives Records FoundNo Advanced Directives Records Found Additional Source Comments INFORMATION SOURCE (unrecogn ized section and content) DATE CREATED AUTHOR 01/04/2018 [facility] DATE CREATED AUTHOR AUTHOR'S ORGANIZ ATION 12/13/[address] [facility] PERTAIN[facility] TO PATIENTS WHO ARE [...] BE BASED ON THE PRIMARY CLINICAL RECORDS. [employer] provides no warranty or guarantee of the accuracy or completeness of information in this document.
[2024-06-28 11:10] LABS: Age Gdln ACOG Testing Note (.); HPV Aptima Negative (Negative); IGP, Aptima HPV, rfx 16/18,45 Note (.)
== END 2024-06-21 12:18 | disposition home or self-care (01) ==
LOC: LAB 12:17
PROVIDERS: PCP Nurse Practitioner Family; Visit Provider Nurse Practitioner Family
DX: Z01.419 Encounter for gynecological examination (general) (routine) without abnormal findings (principal)
CPT/HCPCS: 87624; 88175

== ENCOUNTER 2024-08-16 16:35 | Outpatient (OUT) | payer OTHER, SELFPAY ==
--- OUTSIDE RECORDS SUMMARY | 2024-08-16 16:39 | XMS_ITS | CCD ---
Author Organization [facility] Care Team Providers Care Picker And Sorter Load And Unload Name Role Phone REQUEST, DR NONE LISTED [...] 12-13-2020 BASO # 0.0 103/ul Normal 0.0-0.1 [facility] Comment on above: Performed By: #### C BC #### [facility] [address], [place] [address] Diandra Samina Basophils/100 WBC (Bld) 0.1 % Critically low 0.2-2.0 [facility] Comment on above: Performed By: #### C BC #### [facility] [address], [place] [address] Diandra Samina EO # 0.0 103/ul Normal 0.0-0.7 [facility] Comment on above: Performed By: #### C BC #### [facility] [address], [place] [address] Diandra Samina Eosinophils/100 WBC (Bld) 0.0 % Critically low 0.9-7.0 [facility] Comment on above: Performed By: #### C BC #### [facility] [address], [place] [address] Diandra Samina Erythrocyte distribution width (RBC) [Ratio] 15.4 % Critically high 11.0-15.0 [facility] Comment on above: Performed By: #### C BC #### [facility] [address] [place] [address] Diandradayna Haas Hematocrit (Bld) [Volume fraction] 38.0 % Normal 36.0-48.0 [facility] Comment on above: Performed By: #### C BC #### [facility] [address] [place] [address] Diandra Samina Hemoglobin (Bld) [Mass/Vol] 12.8 g/dL Normal 12.0-16.0 [facility] Comment on above: Performed By: #### C BC #### [facility] [address] [place] [address] Diandra Samina IG # 0.03 10e3/ul Normal 0.00-0.03 [facility] Comment on above: Performed By: #### C BC #### [facility] [address] [place] [address] Diandra Samina IG % 0.3 % Normal 0.0-0.5 [facility] Comment on above: Performed By: #### C BC #### [facility] [address] [place] [address] Diandra Samina LYMPH # 0.7 103/ul Critically low 1.2-3.8 [facility] Comment on above: Performed By: #### C BC #### [facility] [address] [place] [address] Diandra Haas Lymphocytes/100 WBC (Bld) 7.1 % Critically low 20.5-60.0 [facility] Comment on above: Performed By: #### C BC #### [facility] [address] [place] [address] Diandra Haas MANUAL DIFF REQ NO Normal [facility] Comment on above: Performed By: #### C BC #### [facility] [address] [place], [place] [address] Diandra Haas MCH (RBC) [Entitic mass] 30.0 pg Normal 26.7-34.0 [facility] Comment on above: Performed By: #### C BC #### [facility] [address] [place] [address] Diandradayna Coleen MCHC (RBC) [Mass/Vol] 33.7 g/dL Normal 29.9-35.2 [facility] Comment on above: Performed By: #### C BC #### [facility] [address] [place] [id number] Diandra Haas MCV (RBC) [Entitic vol] 89.0 fL Normal 81.0-99.0 [facility] Comment on above: Performed By: #### C BC #### [facility] [address] [place] [address] Diandra Haas MONO # 0.1 103/ul Critically low 0.3-0.8 [facility] Comment on above: Performed By: #### C BC #### [facility] [address] [place], [place] [address] Diandra Haas Monocytes/100 WBC (Bld) 0.5 % Critically low 1.7-12.0 [facility] Comment on above: Performed By: #### C BC #### [facility] [address] [place] [address] Diandra Coleen NEUT # 9.1 103/ul Critically high 1.4-6.5 [facility] Comment on above: Performed By: #### C BC #### [facility] [address] [place], [place] [address] Diandra Haas Neutrophils/100 WBC (Bld) 92.0 % Critically high 43.0-75.0 [facility] Comment on above: Performed By: #### C BC #### [facility] [address] [place] [address] Diandra Haas Platelet mean volume (Bld) [Entitic vol] 9.7 fL Normal 9.5-13.5 [facility] Comment on above: Performed By: #### C BC #### [facility] [address] [place], [place] [address] Diandradayna Coleen PLT 307 103/ul Normal 150-450 [facility] Comment on above: Performed By: #### C BC #### [facility] [address] [place] [address] Diandra Samina RBC 4.27 106/ul Normal 4.20-5.40 [facility] Comment on above: Performed By: #### C BC #### [facility] [address], [place] [address] Diandra Samina WBC 9.9 103/ul Normal 4.0-11.0 [facility] Comment on above: Performed By: #### C BC #### [facility] [address] [place] [address] Diandradayna Haas PROF 14(COMP METB)on 021 Albumin [Mass/Vol] 4.1 g/dL Normal 3.5-5.0 [facility] Comment on above: Performed By: #### C MP #### [facility] [address] [place], [place] [address] Diandra Samina Albumin/Globulin [Mass ratio] 1.1 {ratio} Normal [facility] Comment on above: Performed By: #### C MP #### [facility] [address] [place], [place] [address] Diandra Samina ALP [Catalytic activity/Vol] 76 U/L Normal 38-126 [facility] Comment on above: Performed By: #### C MP #### [facility] [address] [place], [place] [address] Diandra Samina ALT [Catalytic activity/Vol] 15 U/L Normal 9-52 [facility] Comment on above: Performed By: #### C MP #### [facility] [address] [place], [place] [address] Diandra Samina Anion gap [Moles/Vol] 19.7 mmol/L Normal [facility] Comment on above: Performed By: #### C MP #### [facility] [address] [place], [place] [address] Diandra Samina AST [Catalytic activity/Vol] 10 U/L Critically low 14-36 [facility] Comment on above: Performed By: #### C MP #### [facility] [address] [place], [place] [address] Diandra Samina Bilirubin [Mass/Vol] 0.1 mg/dL Critically low 0.2-1.3 [facility] Comment on above: Performed By: #### C MP #### [facility] [address] [place] [address] Diandra Samina Calcium [Mass/Vol] 9.3 mg/dL Normal 8.4-10.2 [facility] [place] Comment on above: Performed By: #### C MP #### [facility] [address] [place] [address] Diandra Samina Chloride [Moles/Vol] 108 mmol/L Critically high 98-107 [facility] Comment on above: Performed By: #### C MP #### [facility] [address] [place] [address] Diandra Samina CO2 [Moles/Vol] 21.5 mmol/L Critically low 22.0-30.0 [facility] Comment on above: Performed By: #### C MP #### [facility] [address] [place] [address] Diandra Samina Creatinine [Mass/Vol] 0.68 mg/dL Normal 0.52-1.04 [facility] Comment on above: Performed By: #### C MP #### [facility] [address] [place], [place] [address] Diandra Samina EGFR-AF SERBIAN >60 Normal >=60 [facility] Comment on above: Performed By: #### C MP #### [facility] [address] [place] [address] Diandra Samina EGFR-NON AF SERBIAN >60 Normal >=60 [facility] Comment on above: Performed By: #### C MP #### [facility] [address] [place], [place] [address] Diandra Samina Globulin (S) [Mass/Vol] 3.7 g/dL Normal [facility] Comment on above: Performed By: #### C MP #### [facility] [address] [place], [place] [address] Diandra Samina Glucose [Mass/Vol] 165 mg/dL Critically high 74-106 [facility] Comment on above: Performed By: #### C MP #### [facility] [address] [place] [address] Diandra Samina Potassium [Moles/Vol] 4.2 mmol/L Normal 3.4-5.0 [facility] Comment on above: Performed By: #### C MP #### [facility] [address] [place] [address] Diandra Samina Protein [Mass/Vol] 7.8 g/dL Normal 6.1-8.2 [facility] Comment on above: Performed By: #### C MP #### [facility] [address] [place] [address] Diandra Samina Sodium [Moles/Vol] 145 mmol/L Normal 137-145 [facility] Comment on above: Performed By: #### C MP #### [facility] [address] [place], [place] [address] Diandra Samina Urea nitrogen [Mass/Vol] 5.0 mg/dL Critically low 7.0-17.0 [facility] Comment on above: Performed By: #### C MP #### [facility] [address] [place] [address] Diandra Samina Urea nitrogen/Creatinin e [Mass ratio] 7.4 mg/mg Normal [facility] Comment on above: Performed By: #### C MP #### [facility] [address] [place], [place] [address] Diandra Haas PROTIMEon 12-13-2020 INR Coag (PPP) [Relative time] {INR} Normal [facility] Comment on above: Performed By: #### P TT, PT #### [facility] [address] [place], [place] [address] Diandradayna Haas INR GUIDELINES SEE BELOW Normal [facility] Comment on above: Result Comment: ESTRELLA RED INR: 2.0 - 3.0 CONDITIONS NOT LISTED BELOW 2.5 - 3.5 FOR PROSTHETIC HEART VALVE REPLACEMENT 2.5 - 3.5 RECURRENT THROMBOSIS Performed By: #### P TT, PT #### [facility] [address] [place], [place] [address] Diandra Haas PT Coag (PPP) [Time] 10.0 s Normal 9.0-11.6 [facility] Comment on above: Performed By: #### P TT, PT #### [facility] [address], [place] [address] Diandra Haas PTTon 12-13-2020 aPTT Coag (Bld) [Time] 24.1 s Normal 22.3-36.2 [facility] Comment on above: Performed By: #### P TT, PT #### [facility] [address], [place] [address] Diandra Haas CYTOLOGYon 04-12-2017 CYTOLOGY Specimen #: [id number] Physician: SEAN REYES D.O.SPECIMEN SUBMITTEDA: CERVICAL, SCREENING, FLUID FI NAL DIAGNOSISA. CERVICAL, SCREENING, FLUIDSatisfactory for interpretation.Negative for intraepithelial lesion or malignancy.Fungal organisms morphologically consistent with Tory species.This specimen has been analyzed by the ThinPrep Imaging System, anaStired imaging and review system, which assists the laboratory inevaluating cells on ThinPrep Pap tests. Following automated imaging,selected morales from every slide are reviewed by a tow truck driver.ARI Finn(ASCP) (Electronic Signature) CL INICAL DATA HPV TESTING: YES, REFLEXClinical History:ROUTINESTAINSA: CERVICAL, SCREENING, FLUID THIN PREP Myla Enrique M.D., Laboratory DirectorPatient ID #: [id number] of Report: 04/15/2017Date of Procedure: 04/12/2017Date of Receipt: 04/13/2017Submitted by: SEAN REYES D.O.Location: Diagnostic interpretation performed at [facility], [address] [place] [address].The Pap Smear is a screening test for cervical cancer. False negativeresults occur with all screening tests, emphasizing the need forrescreening at recommended intervals, and clinical correlation. Normal [facility] Comment on above: Performed By: #### C ####See report for performing lab information. Encounters Encounter Date Encounter Type Care Provider Facility Start: 12-13-2020 End: 12-13-2020 ambulatory NONE LISTED REQUEST Facility: Start: 12-12-2020 End: 12-12-[address] MILDRED MAN Facility:[facility] Payers Date Payer Category Payer Unknown [id number] 1980 Unknown [id number] 1957 Self-pay [id number] Summary Purpose Family History No Family History Records FoundNo Family History Records Found Advance Directives No Advanced Directives Records FoundNo Advanced Directives Records Found Additional Source Comments INFORMATION SOURCE (unrecogn ized section and content) DATE CREATED AUTHOR 01/04/2018 [facility] DATE CREATED AUTHOR AUTHOR'S ORGANIZ ATION 12/13/2020 [facility] PERTAINING TO PATIENTS WHO ARE [...] BE BASED ON THE PRIMARY CLINICAL RECORDS. [employer] provides no warranty or guarantee of the accuracy or completeness of information in this document.
[2024-08-16 16:49] LABS: Basophils Absolute Auto 0.1 10^3/uL (0.0-0.1); Basophils Percent Auto 0.5 % (0.2-2.0); Eosinophils Absolute Auto 0.2 10^3/uL (0.0-0.7); Eosinophils Percent Auto 1.8 % (0.9-7.0); Hemoglobin 13.9 g/dL (12.0-16.0); Immature Granulocytes Abs Auto 0.03 10^3/uL (0.00-0.03); Immature Granulocytes Pct Auto 0.2 % (0.0-0.5); Lymphocytes Absolute Auto 3.6 10^3/uL (1.2-3.8); Lymphocytes Percent Auto 27.9 % (20.5-60.0); Mean Corpuscular HGB Conc 33.9 g/dL (29.9-35.2); Mean Corpuscular Hemoglobin 31.5 pg (26.7-34.0); Mean Platelet Volume 10.1 fL (9.5-13.5); Monocytes Absolute Auto 0.8 10^3/uL (0.3-0.8); Monocytes Percent Auto 6.3 % (1.7-12.0); Neutrophils Absolute Auto 8.1 10^3/uL (1.4-6.5); Neutrophils Percent Auto 63.3 % (43.0-75.0); Platelet Count 276 10^3/uL (150-450); Red Blood Count 4.41 10^6/uL (4.20-5.40); Red Cell Distribution Width 13.8 % (11.0-15.0); White Blood Count 12.7 10^3/uL (4.0-11.0)
[2024-08-16 17:19] LABS: Alanine Aminotransferase 22 U/L (14-59); Albumin Globulin Ratio 1.2; Albumin Level 3.8 g/dL (3.4-5.0); Alkaline Phosphatase 81 U/L (46-116); Anion Gap 14.5; Aspartate Amino Transferase 12 U/L (15-37); Bilirubin Total 0.2 mg/dL (0.2-1.0); Calcium 9.2 mg/dL (8.5-10.1); Carbon Dioxide 26.1 mmol/L (21.0-32.0); Chloride 104 mmol/L (98-107); Estimated GFR (African America >60 (>=60 mL/min/1.73m^2); Estimated GFR (Non-African Ame >60 (>=60 mL/min/1.73m^2); Globulin 3.3 g/dL; Glucose 72 mg/dL (74-106); Percent Iron Saturation 33.6 %; Potassium 3.6 mmol/L (3.5-5.1); Sodium 141 mmol/L (136-145); Total Protein 7.1 g/dL (6.4-8.2)
[2024-08-18 04:06] LABS: Vitamin B12 359 pg/mL (232-1245)
== END 2024-08-16 16:36 | disposition home or self-care (01) ==
PROVIDERS: PCP Nurse Practitioner Family; Visit Provider Internal Medicine Hematology & Oncology
DX: D72.829 Elevated white blood cell count, unspecified (principal); Z12.31 Encounter for screening mammogram for malignant neoplasm of breast; Z80.9 Family history of malignant neoplasm, unspecified; D50.9 Iron deficiency anemia, unspecified; K90.9 Intestinal malabsorption, unspecified
CPT/HCPCS: 36415; 80053; 82306; 82607; 82728; 82746; 83540; 83550; 85025

== ENCOUNTER 2024-08-21 08:37 | Outpatient (RCR) | payer OTHER, SELFPAY | END 2024-08-22 12:29 | disposition home or self-care (01) | LOC: HEMC 08:37 | PROVIDERS: PCP Nurse Practitioner Family; Visit Provider Internal Medicine Hematology & Oncology | DX: D72.829 Elevated white blood cell count, unspecified (principal); Z80.9 Family history of malignant neoplasm, unspecified; D50.9 Iron deficiency anemia, unspecified; K90.9 Intestinal malabsorption, unspecified; F17.210 Nicotine dependence, cigarettes, uncomplicated; R73.03 Prediabetes; R53.82 Chronic fatigue, unspecified; R63.0 Anorexia; R12 Heartburn; G62.9 Polyneuropathy, unspecified | CPT/HCPCS: G0463 ==

== ENCOUNTER 2025-02-26 06:46 | Outpatient (RCR) | payer OTHER, SELFPAY ==
[2025-02-22 13:27] LABS: Hematocrit 41.6 % (36.0-48.0); Hemoglobin 13.9 g/dL (12.0-16.0); Immature Granulocytes Abs Auto 0.03 10^3/uL (0.00-0.03); Immature Granulocytes Pct Auto 0.3 % (0.0-0.5); Lymphocytes Absolute Auto 2.9 10^3/uL (1.2-3.8); Mean Corpuscular HGB Conc 33.4 g/dL (29.9-35.2); Mean Corpuscular Hemoglobin 30.9 pg (26.7-34.0); Mean Corpuscular Volume 92.4 fL (81.0-99.0); Platelet Count 215 10^3/uL (150-450); Red Blood Count 4.50 10^6/uL (4.20-5.40); White Blood Count 10.3 10^3/uL (4.0-11.0)
[2025-02-22 13:45] LABS: Alanine Aminotransferase 21 U/L (14-59); Albumin Globulin Ratio 1.2; Albumin Level 4.0 g/dL (3.4-5.0); Alkaline Phosphatase 84 U/L (46-116); Anion Gap 8.9; Aspartate Amino Transferase 10 U/L (15-37); Blood Urea Nitrogen 9.0 mg/dL (7.0-18.0); Calcium 9.7 mg/dL (8.5-10.1); Carbon Dioxide 28.2 mmol/L (21.0-32.0); Chloride 108 mmol/L (98-107); Estimated GFR (African America >60 (>=60 mL/min/1.73m^2); Estimated GFR (Non-African Ame >60 (>=60 mL/min/1.73m^2); Globulin 3.4 g/dL; Glucose 87 mg/dL (74-106); Potassium 4.1 mmol/L (3.5-5.1); Sodium 141 mmol/L (136-145); Total Protein 7.4 g/dL (6.4-8.2)
[2025-02-22 13:51] LABS: Iron 77.0 ug/dL (50.0-170.0); Percent Iron Saturation 25.8 %; Total Iron Binding Capacity 298.0 ug/dL (250.0-450.0)
[2025-02-22 14:16] LABS: Ferritin 117.0 ng/mL (8.0-252.0); Folate 35.10 ng/mL (8.60-58.90)
[2025-02-23 07:08] LABS: Vitamin B12 327 pg/mL (232-1245)
== END 2025-03-10 23:59 | disposition home or self-care (01) ==
LOC: HEMC 06:46
PROVIDERS: PCP Nurse Practitioner Family; Visit Provider Internal Medicine Hematology & Oncology
DX: D50.9 Iron deficiency anemia, unspecified (principal); K90.9 Intestinal malabsorption, unspecified; D72.829 Elevated white blood cell count, unspecified; Z80.9 Family history of malignant neoplasm, unspecified; F17.210 Nicotine dependence, cigarettes, uncomplicated; R53.82 Chronic fatigue, unspecified; R12 Heartburn; R73.03 Prediabetes; G62.9 Polyneuropathy, unspecified
CPT/HCPCS: 36415; 80053; 82306; 82607; 82728; 82746; 83540; 83550; 85025; G0463

== ENCOUNTER 2025-03-06 09:34 | Outpatient (OUT) | payer OTHER, SELFPAY ==
--- OUTSIDE RECORDS SUMMARY | 2024-10-26 07:44 | XMS_ITS ---
Author Organization [facility] in [place] Address [address] [place] [address] Care Team Providers Care Audit Consultant Name Role Phone SUZY OCONNELL CNP Primary Care Provider [phone] Suzy Oconnell Unavailable [phone] REASON FOR VISIT refill Medications Medication SIG (Take, Route, Fr equency, Duration) Notes Start Date End Date Status Virasal 27.5 % 1 application as nee ded Externally Once a day 10/25/2024 Active Encounters Encounter Location Date Provider Diagnosis [facility] [address] [place] [address] 10/26/2024 Suzy Oconnell Plantar wart B07.0 Assessments Encounter Date Diagnosis (ICD Code) Assessment Notes Treatment Notes Treatment Clinical Notes Section Notes 10/26/2024 Plantar wart (ICD-10 - B07.0) Plan Of Treatment Medication Medication Name Sig Start Date Stop Date Notes Virasal 27.5 % 1 application as nee ded Externally Once a day 10/25/2024 Next Appt Details Provider Name:Ct Mendiola , 08/06/2025 01:00:00 PM, [address] [place], [address], Progress Notes * Juana GORDONDOB:[birth year] (44 yo F)Acc No.[id number]:10/26/2024 Patient: Juana BRIGHT :1980 A ge:44 Y S ex:Female Address:[address] [place] [address], [place] [address] * Refills Refill Virasal Liquid, 27.5 %, Externally, 1, 1 application as needed, Once a day, Refills=1 * true * Date: Generated for Sunita denny/Luciano/Emanuelitting on: 0 03/06/2025 09:37 AM EDT
--- OUTSIDE RECORDS SUMMARY | 2025-02-13 06:30 | XMS_ITS ---
Author Organization [facility] in [place] Address [address] [place] [address] Care Team Providers Care Manager Of Transportation Name Role Phone MILTON TALAVERA CNP Primary Care Provider [phone] Unavailable [phone] Allergies No Known Allergies REASON FOR VISIT itchy rash, forearms - Samanta patient, Has been itching for the past 3 days- starting to become painful, Has tried calamine lotion- helps a little bit but then itches again Medications Medication SIG (Take, Route, Frequency, Duration) Notes Start Date End Date Status predniSONE 20 MG 2 tablets Orally Onc e a day for 5 days 02/13/2025 Active Folic Acid 1 MG 1 tablet Orally Once a day Active Vitamin D3 125 MCG (5000 UT) 1 capsule Orally Once a day Active Vitamin C 500 MG 1 tablet Orally Once a day for 30 days 04/18/2024 Active Pantoprazole Sodium 20 MG 1 tablet Orall y BID for 90 days 04/18/2024 Active Slow Iron 160 (50 Fe) MG 1 tablet Orally Three times a Week for 90 days 04/18/2024 Active Triamcinolone Acetonide 0.1 % 1 application Externally bid 02/13/2025 Active Social History Tobacco Use: Social History Observation Description Date Details (start date - stop date) Current Smoker NA - NA Tobacco Use/Smoking Question Answer Notes Patient is a current smoker How often do you smoke cigarettes? every day How many cigarettes a day do you smoke? 11-20 Tobacco Control (Standard) Question Answer Notes Tobacco use: Current smoker Problems Problem Type SNOMED Code ICD Code Onset Dates Problem Status W/U Status Risk Notes Problem Contact dermatitis (L25.9) Active confirmed Vital Signs Blood pressure systolic 118 mm Hg 02/14/20 25 Blood pressure diastolic 84 mm Hg 025 Height 59 in 02/13/2025 Weight 108.0 lbs 02/13/2025 BMI 21.81 kg/m2 02/13/2025 Encounters Encounter Location Date Provider [facility] [address] [place] [address] 02/13/2025 Romulo Funk Contact dermatitis L25.9 Assessments Encounter Date Diagnosis (ICD Code) Assessment Notes Treatment Notes Treatment Clinical Notes Section Notes 02/13/2025 Contact dermatitis (ICD-10 - L25.9) Plan Of Treatment Medication Medication Name Sig Start Date Stop Date Notes predniSONE 20 MG 2 tablets Orally Onc e a day for 5 days 02/13/2025 Triamcinolone Acetonide 0.1 % 1 application Externally bid 02/13/2025 Next Appt Details Provider Name:Ct Mendiola , 08/06/2025 01:00:00 PM, [address] [place], [address], Progress Notes * JHONNYBARRINGTONJuanaDOB: 3 (44 yo F)Acc No.[id number]:02/13/2025 Progress Note Patient: Juana EGAN Provider: Carmella Funk ([facility])MD :1980 A ge:44 Y S ex:Female Date:02/13/2025 Address:[address] [place], [place] [address] Pcp:MILTON TALAVERA CNP Check In:10:28 AM ESTCheck O ut:11:07 AM EST Subjective: * Chief Complaints: * i tchy rash, forearms - Samanta patientHas been itching for the past 3 days- starting to become painfulHas tried calamine lotion- helps a little bit but then itches again * HPI: G eneral: was camping apst weekend and nopw rash on forearms. * Active Problem List M19.90 Arthritis Modified On:09/27/2023W/U Status:confirmed F17.200 Smoker Modified On:09/27/2023W/U Status:confirmed K21.9 GERD (gastroesophage al reflux disease) Modified On:04/18/2024 Status:confirmed D72.9 Abnormal white blood cell Modified On:01/02/2024 Status:confirmed D50.9 GINGER (iron deficiency anemia) Modified On:03/14/2024 Status:confirmed D50.9 Iron deficiency anem ia, unspecified Modified On:03/15/2024 Status:confirmed K22.70 Beverly's esophagus without dysplasia Modified On:04/18/2024 Status:confirmed Z86.0100 Personal history of colon polyps, unspecified Modified On:04/18/2024 Status:confirmed B07.0 Plantar wart Modified On:10/25/2024 Status:confirmed L25.9 Contact dermatitis Modified On:02/13/2025 Status:confirmed * Medical History: * Surgical History: c olonoscopy 2023EGD 2023 * Hospitalization/Major Diagno stic Procedure: D enies Past Hospitalization * Family History: F ather: alive, diagnosed with Unspecified essential hypertension, Unspecified heart disease.?Mother: . B rother(s): alive, diagnosed with Diabetes mellitus without mention of complication, type II or unspecified type, not stated as uncontrolled. 1 brother(s) . . * Social History: T obacco Use: T obacco Control (Standard) T obacco use: C urrent smoker Tobacco Use/Smoking P atient is a c urrent smoker H ow often do you smoke cigarettes? e very day H ow many cigarettes a day do you smoke? 1 1-20 * Medications: T akingFolic Acid 1 MG Tablet 1 tablet Orally Once a day Pantoprazole Sodium 20 MG Tablet Delayed Release 1 tablet Orally BID Slow Iron(Ferrous Sulfate Dried ER) 160 (50 Fe) MG Tablet Extended Release 1 tablet Orally Three times a Week Vitamin C 500 MG Tablet 1 tablet Orally Once a day Vitamin D3 125 MCG (5000 UT) Capsule 1 capsule Orally Once a day Taking Folic Acid 1 MG Tablet 1 tablet Orally Once a day Taking Pantoprazole Sodium 20 MG Tablet Delayed Release 1 tablet Orally BID Taking Slow Iron(Ferrous Sulfate Dried ER) 160 (50 Fe) MG Tablet Extended Release 1 tablet Orally Three times a Week Taking Vitamin C 500 MG Tablet 1 tablet Orally Once a day Taking Vitamin D3 125 MCG (5000 UT) Capsule 1 capsule Orally Once a day DiscontinuedVirasal(Salicylic Acid) 27.5 % Liquid 1 application as needed Externally Once a day Medication List reviewed and reconciled with the patientDiscontinued Virasal(Salicylic Acid) 27.5 % Liquid 1 application as needed Externally Once a day Medication List reviewed and reconciled with the patient * Allergies: N .K.D.A.no[Allergies Verified] Objective: * Vitals: W t:108.0lbs, Ht: 59 in, BP:118/84mm Hg, BMI:21.81Index, Ht-cm: 149.86 cm, Wt-k.99 kg. * Examination: A bdomen Exam:: c ontact derm on arms. Assessment: * Assessment: 1. C ontact dermatitis - L25.9 (Primary) Plan: * Treatment: * Procedure Codes: * * Sign off status: Completed Visit Status: C HK (Check Out) true * Provider: Carmella Funk ([facility])MD Date: 0 02/13/2025 Generated for Sunita denny/Luciano/Emanuelitting on: 0 03/06/2025 09:37 AM EDT History and Physical Notes * HPI (History of Present Illness) Category Sub-Category Detail Notes Category Not es General was camping aps t weekend and nopw rash on forearms Examination Category Sub-Category Detail Notes Category Not es Abdomen Exam: contact derm o n arms
--- OUTSIDE RECORDS SUMMARY | 2025-02-26 04:30 | XMS_ITS ---
Author Organization [facility] in [place] Address [address] [place] [address] Care Team Providers Care Farm Loan Representative Name Role Phone MILTON TALAVERA CNP Primary Care Provider [phone] Ct Mendiola Unavailable [phone] REASON FOR VISIT MD Encounters Encounter Location Date Provider Diagnosis [facility] On[facility] [address] [place] [address] 02/26/2025 Ct Mendiola Plan Of Treatment Next Appt Details Provider Name:Ct Maury , 08/06/2025 01:00:00 PM, [address] [place], [address], Progress Notes * JHONNYJuana FERRISDOB: 3 (44 yo F)Acc No.[id number]:02/26/2025 UNLOCKED PROGRESS NOTE Progress Notes Patient: Juana EGAN Provider: Charley Mendiola M.D. :1980 A ge:44 Y S ex:Female Date:02/26/2025 Address:[address] [place], [place] [address] SERVICES[facility]-[id number] Pcp:MILTON TALAVERA CNP Subjective: * Chief Complaints: * 1 . MD. * Medical History: Objective: * Vitals: Assessment: Plan: * Treatment: * * Electronic signature of Annette Mendiola MD, [id number] on 03/06/2025 at 09:36 AM EDT Sign off status: Pending Visit Status: P EN (Pending) * Provider: Charley Mendiola M.D. Date: 0 02/26/2025 Generated for Sunita denny/Luciano/Matt on: 0 03/06/2025 09:36 AM EDT
--- OUTSIDE RECORDS SUMMARY | 2025-03-06 09:37 | XMS_ITS | Patient Health Record ---
Author Organization [facility] [place] Address [address] [place] [address] Care Team Providers Care Forcer Maker Name Role Phone SUZY TALAVERA CNP Primary Care Provider [phone] Pilar Dickey Unavailable [phone] GRAY Melgoza Unavailable [phone] Ct Mendiola Unavailable [phone] Gisel Luis Unavailable Romulo Funk Unavailable [phone] Suzy Talavera Unavailable [phone] Allergies No Known Allergies Results Component Value Reference Range Notes CBC AUTO DIFF (Not yet revie wed by provider) Interpretation: Performing Lab: Notes/Report: [facility] , White Blood Count 9.7 4.0-11.0 10 3/uL Red Blood Count 4.65 4.20-5.40 10 6/uL Hemoglobin 14.3 12.0-16.0 g/dL Hematocrit 43.6 36.0-48.0 % Mean Corpuscular Volume 93.8 81.0-99.0 fL Mean Corpuscular Hemoglobin 30.8 26.7-34.0 pg Mean Corpuscular HGB Conc 32.8 29.9-35.2 g/dL Red Cell Distribution Width 15.8 11.0-15.0 % Platelet Count 257 150-450 10 3/uL Mean Platelet Volume 10.9 9.5-13.5 fL Neutrophils Percent Auto 71.3 43.0-75.0 % Lymphocytes Percent Auto 21.6 20.5-60.0 % Monocytes Percent Auto 4.8 1.7-12.0 % Eosinophils Percent Auto 1.4 0.9-7.0 % Basophils Percent Auto 0.6 0.2-2.0 % Immature Granulocytes Pct Auto 0.3 0.0-0.5 % Neutrophils Absolute Auto 6.9 1.4-6.5 10 3/uL Lymphocytes Absolute Auto 2.1 1.2-3.8 10 3/uL Monocytes Absolute Auto 0.5 0.3-0.8 10 3/uL Eosinophils Absolute Auto 0.1 0.0-0.7 10 3/uL Basophils Absolute Auto 0.1 0.0-0.1 10 3/uL Immature Granulocytes Abs Auto 0.03 0.00-0.03 10 3/uL Performing Lab: see note ML - [facility] LB CBC AUTO DIFF (Not yet revie wed by provider) Interpretation: Performing Lab: Notes/Report: [facility] , White Blood Count 10.3 4.0-11.0 10 3/uL Red Blood Count 4.50 4.20-5.40 10 6/uL Hemoglobin 13.9 12.0-16.0 g/dL Hematocrit 41.6 36.0-48.0 % Mean Corpuscular Volume 92.4 81.0-99.0 fL Mean Corpuscular Hemoglobin 30.9 26.7-34.0 pg Mean Corpuscular HGB Conc 33.4 29.9-35.2 g/dL Red Cell Distribution Width 13.9 11.0-15.0 % Platelet Count 215 150-450 10 3/uL Mean Platelet Volume 11.6 9.5-13.5 fL Neutrophils Percent Auto 64.6 43.0-75.0 % Lymphocytes Percent Auto 27.6 20.5-60.0 % Monocytes Percent Auto 4.7 1.7-12.0 % Eosinophils Percent Auto 1.9 0.9-7.0 % Basophils Percent Auto 0.9 0.2-2.0 % Immature Granulocytes Pct Auto 0.3 0.0-0.5 % Neutrophils Absolute Auto 6.7 1.4-6.5 10 3/uL Lymphocytes Absolute Auto 2.9 1.2-3.8 10 3/uL Monocytes Absolute Auto 0.5 0.3-0.8 10 3/uL Eosinophils Absolute Auto 0.2 0.0-0.7 10 3/uL Basophils Absolute Auto 0.1 0.0-0.1 10 3/uL Immature Granulocytes Abs Auto 0.03 0.00-0.03 10 3/uL Performing Lab: see note ML - [facility] LB FERRITIN (Not yet reviewed b y provider) Interpretation: Performing Lab: Notes/Report: [facility] , Ferritin 117.0 8.0-252.0 ng/mL Performing Lab: see note ML - [facility] LB FOLATE (Not yet reviewed by provider) Interpretation: Performing Lab: Notes/Report: [facility] , Folate 35.10 8.60-58.90 ng/mL Performing Lab: see note ML - [facility] LB IRON AND TIBC (Not yet revie wed by provider) Interpretation: Performing Lab: Notes/Report: [facility] , Iron 77.0 50.0-170.0 ug/dL Total Iron Binding Capacity 298.0 250.0-450.0 u g/dL Percent Iron Saturation 25.8 Performing Lab: see note ML - [facility] LB PROF 14(COMP METB) (Not yet reviewed by provider) Interpretation: Performing Lab: Notes/Report: [facility] , Sodium 141 136-145 mmol/L Potassium 4.1 3.5-5.1 mmol/L Chloride 108 98-107 mmol/L Carbon Dioxide 28.2 21.0-32.0 mmol/L Anion Gap 8.9 Glucose 87 74-106 mg/dL Blood Urea Nitrogen 9.0 7.0-18.0 mg/dL Creatinine 0.63 0.55-1.02 mg/dL Estimated GFR ( Nicole >60 >=60 mL/min/1.73m 2 Estimated GFR (Non- Adrienne >60 >=60 mL/min/1.73m 2 BUN Creatinine Ratio 14.3 Calcium 9.7 8.5-10.1 mg/dL Bilirubin Total 0.3 0.2-1.0 mg/dL Aspartate Amino Transferase 10 15-37 U/L Alanine Aminotransferase 21 14-59 U/L Alkaline Phosphatase 84 46-116 U/L Total Protein 7.4 6.4-8.2 g/dL Albumin Level 4.0 3.4-5.0 g/dL Globulin 3.4 Albumin Globulin Ratio 1.2 Performing Lab: see note ML - [facility] LB VITAMIN D 25 [place] (Not yet rev iewed by provider) Interpretation: Performing Lab: Notes/Report: [facility] , Vitamin D 66.1 <20 ng/mL Vit D deficient 20-<30 ng/mL Vit D insufficient 30-100 ng/mL Vit D sufficient >100 ng/mL Potential Toxicity Performing Lab: see note ML - [facility] LB Vitamin B12 (Not yet reviewe d by provider) Interpretation: Performing Lab: Notes/Report: [facility] , Vitamin B12 [phone] pg/mL Performed at: [facility] [address] [id number] Maintenance Groundskeeper: Tj Nassar PhD, Phone: [phone] Performing Lab: [facility] - [facility] Vitamin B12 (Not yet reviewe d by provider) Interpretation: Performing Lab: Notes/Report: [facility] , Vitamin B12 [phone] pg/mL Performed at: [facility] [address] [id number] Maintenance Groundskeeper: Tj Nassar PhD, Phone: [phone] Performing Lab: see note [facility] VITAMIN D 25 [place] (Not yet rev iewed by provider) Interpretation: Performing Lab: Notes/Report: [facility] , Vitamin D 24.4 <20 ng/mL Vit D deficient 20-<30 ng/mL Vit D insufficient 30-100 ng/mL Vit D sufficient >100 ng/mL Potential Toxicity Performing Lab: see note ML - [facility] LB PROF 14(COMP METB) (Not yet reviewed by provider) Interpretation: Performing Lab: Notes/Report: [facility] , Sodium 141 136-145 mmol/L Potassium 3.6 3.5-5.1 mmol/L Chloride 104 98-107 mmol/L Carbon Dioxide 26.1 21.0-32.0 mmol/L Anion Gap 14.5 Glucose 72 74-106 mg/dL Blood Urea Nitrogen 10.0 7.0-18.0 mg/dL Creatinine 0.77 0.55-1.02 mg/dL Estimated GFR ( Nicole >60 >=60 mL/min/1.73m 2 Estimated GFR (Non- Adrienne >60 >=60 mL/min/1.73m 2 BUN Creatinine Ratio 13.0 Calcium 9.2 8.5-10.1 mg/dL Bilirubin Total 0.2 0.2-1.0 mg/dL Aspartate Amino Transferase 12 15-37 U/L Alanine Aminotransferase 22 14-59 U/L Alkaline Phosphatase 81 46-116 U/L Total Protein 7.1 6.4-8.2 g/dL Albumin Level 3.8 3.4-5.0 g/dL Globulin 3.3 Albumin Globulin Ratio 1.2 Performing Lab: see note ML - [facility] LB IRON AND TIBC (Not yet revie wed by provider) Interpretation: Performing Lab: Notes/Report: [facility] , Iron 100.0 50.0-170.0 ug/dL Total Iron Binding Capacity 298.0 250.0-450.0 u g/dL Percent Iron Saturation 33.6 Performing Lab: see note ML - [facility] LB FOLATE (Not yet reviewed by provider) Interpretation: Performing Lab: Notes/Report: [facility] , Folate 3.60 8.60-58.90 ng/mL Performing Lab: see note ML - [facility] LB FERRITIN (Not yet reviewed b y provider) Interpretation: Performing Lab: Notes/Report: [facility] , Ferritin 164.0 8.0-252.0 ng/mL Performing Lab: see note ML - [facility] LB CBC AUTO DIFF (Not yet revie wed by provider) Interpretation: Performing Lab: Notes/Report: [facility] , White Blood Count 12.7 4.0-11.0 10 3/uL Red Blood Count 4.41 4.20-5.40 10 6/uL Hemoglobin 13.9 12.0-16.0 g/dL Hematocrit 41.0 36.0-48.0 % Mean Corpuscular Volume 93.0 81.0-99.0 fL Mean Corpuscular Hemoglobin 31.5 26.7-34.0 pg Mean Corpuscular HGB Conc 33.9 29.9-35.2 g/dL Red Cell Distribution Width 13.8 11.0-15.0 % Platelet Count 276 150-450 10 3/uL Mean Platelet Volume 10.1 9.5-13.5 fL Neutrophils Percent Auto 63.3 43.0-75.0 % Lymphocytes Percent Auto 27.9 20.5-60.0 % Monocytes Percent Auto 6.3 1.7-12.0 % Eosinophils Percent Auto 1.8 0.9-7.0 % Basophils Percent Auto 0.5 0.2-2.0 % Immature Granulocytes Pct Auto 0.2 0.0-0.5 % Neutrophils Absolute Auto 8.1 1.4-6.5 10 3/uL Lymphocytes Absolute Auto 3.6 1.2-3.8 10 3/uL Monocytes Absolute Auto 0.8 0.3-0.8 10 3/uL Eosinophils Absolute Auto 0.2 0.0-0.7 10 3/uL Basophils Absolute Auto 0.1 0.0-0.1 10 3/uL Immature Granulocytes Abs Auto 0.03 0.00-0.03 10 3/uL Performing Lab: see note ML - [facility] LB IGP,Aptima HPV,Age Gdln Reviewed date:06/28/2024 11:32:34 AM Interpretation: Performing Lab: Notes/Report: BRUSH-ALONE 06/14/2024 CERVIX [facility] , Age Gdln ACOG Testing Note . TESTS RESULT FLAG UNITS REF RANGE LAB ---- Clinician Provided Cytology Information Source.............Cervix LMP / Prev Treat...PVS=[id number] No. of containers..01 ThinPrep Vial Age Algo ACOG Heidy... 30-65 01 ---- FLAG LEGEND: L-Low Normal,H-High Normal,LL-Alert Low,HH-Alert High <-Panic Low,>-Panic High,A-Abnormal,AA-Critical Abnormal ---- Performed at: 01 =G [facility] [address] [facility] [place] [address] Mamie Olguin MD, IGP, Aptima HPV, rfx 16/18,45 Note . TESTS RESULT FLAG UNITS REF RANGE LAB ---- DIAGNOSIS: 02 NEGATIVE FOR INTRAEPITHELIAL LESION OR MALIGNANCY. Specimen adequacy: 02 Satisfactory for evaluation. Endocervical and/or squamous metaplastic cells (endocervical component) are present. Performed by: 02 Jeromy Genao, Perfume And Toilet Water Maker (ASCP) . 02 Note: Note 02 The Pap smear is a screening test designed to aid in the detection of premalignant and malignant conditions of the uterine cervix. It is not a diagnostic procedure and should not be used as the sole means of detecting cervical cancer. Both false-positive and false-negative reports do occur. Test Methodology: Note 02 This liquid based ThinPrep(R) pap test was screened with the use of an image guided system. HPV Genotype Reflex Note 02 Criteria not met, HPV Genotype not performed. ---- FLAG LEGEND: L-Low Normal,H-High Normal,LL-Alert Low,HH-Alert High <-Panic Low,>-Panic High,A-Abnormal,AA-Critical Abnormal ---- Performed at: 02 WB [facility] [place] [address] [facility] [place] [address] Mamie Olguin MD, HPV Aptima Negative Negative This nucleic acid amplification test detects fourteen high- risk HPV types (16,18,31,33,35,39,45,51,52, 56,58,59,66,68) without differentiation. Performed at: = - [address] [id number] Maintenance Groundskeeper: Mamie Olguin MD, Phone: [phone] Performed at: [address] [id number] Maintenance Groundskeeper: Mamie Olguin MD, Phone: [phone] Performing Lab: see note - [facility] LB Vitamin B12 (Not yet reviewe d by provider) Interpretation: Performing Lab: Notes/Report: [facility] , Vitamin B12 [phone] pg/mL Performed at: [address] [id number] Maintenance Groundskeeper: Tj Nassar PhD, Phone: [phone] Performing Lab: see note - [facility] LB VITAMIN D 25 [place] (Not yet rev iewed by provider) Interpretation: Performing Lab: Notes/Report: [facility] , Vitamin D 29.8 <20 ng/mL Vit D deficient 20-<30 ng/mL Vit D insufficient 30-100 ng/mL Vit D sufficient >100 ng/mL Potential Toxicity Performing Lab: see note ML - [facility] LB FERRITIN (Not yet reviewed b y provider) Interpretation: Performing Lab: Notes/Report: [facility] , Ferritin 331.0 8.0-252.0 ng/mL Performing Lab: see note ML - [facility] LB PATHOLOGY REPORT Reviewed date:04/05/2024 11:58:56 AM Interpretation: Performing Lab:[facility], [id number], [id number] Elaina Olvera Notes/Report: FASTING: UNKNOWN CLINICAL INFORMATION [place]-colored mucosa suspicious for long-segment Beverly's esophagus PATHOLOGIST Jose Rhodes Jr., M.D. 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 [facility], [address], [place] [id number]. Carol Tafoya M.D., Board Design Engineer, CLIA: [id number] Received 4 prepared H&E slide(s) and 1 unstained slide(s). A CLINICAL IMPRESSION Esopha mirian, biopsy A SOURCE Stomach, random biopsy: Duodenum, biopsy Transverse colon, polyp(s) Esophagus, biopsy A GROSS DESCRIPTION Received in formalin with two patient identifiers Received in formalin with two patient identifiers Received in formalin with two patient identifiers Received in formalin with two patient identifiers are multiple soft fragments of pink-moreno tissue are multiple soft fragments of pink-moreno tissue are multiple soft fragments of pink-moreno tissue are multiple soft fragments of pink-moreno tissue aggregated to 0.5 x 0.4 x 0.2 cm. The entire aggregated to 0.7 x 0.4 x 0.3 cm. The entire aggregated to 0.8 x 0.6 x 0.2 cm. The entire aggregated to 0.7 x 0.4 x 0.2 cm. The entire specimen is submitted as received in one specimen is submitted as received in one specimen is submitted as received in one specimen is submitted as received in one cassette. CATRACHO cassette. CATRACHO cassette. CATRACHO cassette. CATRACHO Gross exam(s) performed at: [address] [address] Industrial Engineering Analyst: ELAINA OLVERA MD A DIAGNOSIS Squamous epithelium with mild reactive changes Antrofundic transitional-type mucosa with no Small bowel mucosa with no diagnostic Sessile serrated adenoma. and rare intraepithelial eosinophils. significant inflammation. histopathologic alteration including no evidence of celiac disease. Cardiac-type columnar mucosa with chronic No Helicobacter pylori organisms are identified inflammation and scattered goblet cell with Helicobacter pylori immunohistochemical metaplasia. stain (all positive and required negative controls stained appropriately). There is no evidence of dysplasia. See comment. 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 [facility], [address], [place] [address]. Carol Tafoya M.D., Board Design Engineer, CLIA: [id number] Received 4 prepared H&E slide(s) and 1 unstained slide(s). B SOURCE Stomach, random biopsy: Duodenum, biopsy Transverse colon, polyp(s) Esophagus, biopsy B GROSS DESCRIPTION Received in formalin with two patient identifiers Received in formalin with two patient identifiers Received in formalin with two patient identifiers Received in formalin with two patient identifiers are multiple soft fragments of pink-moreno tissue are multiple soft fragments of pink-moerno tissue are multiple soft fragments of pink-moreno tissue are multiple soft fragments of pink-moreno tissue aggregated to 0.5 x 0.4 x 0.2 cm. The entire aggregated to 0.7 x 0.4 x 0.3 cm. The entire aggregated to 0.8 x 0.6 x 0.2 cm. The entire aggregated to 0.7 x 0.4 x 0.2 cm. The entire specimen is submitted as received in one specimen is submitted as received in one specimen is submitted as received in one specimen is submitted as received in one cassette. CATRACHO cassette. CATRACHO cassette. CATRACHO cassette. CATRACHO Gross exam(s) performed at: [address] [address] Industrial Engineering Analyst: ELAINA OLVERA MD B DIAGNOSIS Squamous epithelium with mild reactive changes Antrofundic transitional-type mucosa with no Small bowel mucosa with no diagnostic Sessile serrated adenoma. and rare intraepithelial eosinophils. significant inflammation. histopathologic alteration including no evidence of celiac disease. Cardiac-type columnar mucosa with chronic No Helicobacter pylori organisms are identified inflammation and scattered goblet cell with Helicobacter pylori immunohistochemical metaplasia. stain (all positive and required negative controls stained appropriately). There is no evidence of dysplasia. See comment. C SOURCE Stomach, random biopsy: Duodenum, biopsy Transverse colon, polyp(s) Esophagus, biopsy C GROSS DESCRIPTION Received in formalin with two patient identifiers Received in formalin with two patient identifiers Received in formalin with two patient identifiers Received in formalin with two patient identifiers are multiple soft fragments of pink-moreno tissue are multiple soft fragments of pink-moreno tissue are multiple soft fragments of pink-moreno tissue are multiple soft fragments of pink-moreno tissue aggregated to 0.5 x 0.4 x 0.2 cm. The entire aggregated to 0.7 x 0.4 x 0.3 cm. The entire aggregated to 0.8 x 0.6 x 0.2 cm. The entire aggregated to 0.7 x 0.4 x 0.2 cm. The entire specimen is submitted as received in one specimen is submitted as received in one specimen is submitted as received in one specimen is submitted as received in one cassette. CATRACHO cassette. CATRACHO cassette. CATRACHO cassette. CATRACHO Gross exam(s) performed at: [facility] [address] [address] Industrial Engineering Analyst: ELAINA OLVERA MD C DIAGNOSIS Squamous epithelium with mild reactive changes Antrofundic transitional-type mucosa with no Small bowel mucosa with no diagnostic Sessile serrated adenoma. and rare intraepithelial eosinophils. significant inflammation. histopathologic alteration including no evidence of celiac disease. Cardiac-type columnar mucosa with chronic No Helicobacter pylori organisms are identified inflammation and scattered goblet cell with Helicobacter pylori immunohistochemical metaplasia. stain (all positive and required negative controls stained appropriately). There is no evidence of dysplasia. See comment. D SOURCE Stomach, random biopsy: Duodenum, biopsy Transverse colon, polyp(s) Esophagus, biopsy D GROSS DESCRIPTION Received in formalin with two patient identifiers Received in formalin with two patient identifiers Received in formalin with two patient identifiers Received in formalin with two patient identifiers are multiple soft fragments of pink-moreno tissue are multiple soft fragments of pink-moreno tissue are multiple soft fragments of pink-moreno tissue are multiple soft fragments of pink-moreno tissue aggregated to 0.5 x 0.4 x 0.2 cm. The entire aggregated to 0.7 x 0.4 x 0.3 cm. The entire aggregated to 0.8 x 0.6 x 0.2 cm. The entire aggregated to 0.7 x 0.4 x 0.2 cm. The entire specimen is submitted as received in one specimen is submitted as received in one specimen is submitted as received in one specimen is submitted as received in one cassette. CATRACHO cassette. CATRACHO cassette. CATRACHO cassette. CATRACHO Gross exam(s) performed at: [facility] [address] [address] Industrial Engineering Analyst: MD Carmella FREDERICK DIAGNOSIS Squamous epithelium with mild reactive changes Antrofundic transitional-type mucosa with no Small bowel mucosa with no diagnostic Sessile serrated adenoma. and rare intraepithelial eosinophils. significant inflammation. histopathologic alteration including no evidence of celiac disease. Cardiac-type columnar mucosa with chronic No Helicobacter pylori organisms are identified inflammation and scattered goblet cell with Helicobacter pylori immunohistochemical metaplasia. stain (all positive and required negative controls stained appropriately). There is no evidence of dysplasia. See comment. Upper GI endoscopy Reviewed date:03/27/2024 01:04:54 PM Interpretation: Performing Lab: Notes/Report: Colonoscopy Reviewed date:03/27/2024 01:04:48 PM Interpretation: Performing Lab: Notes/Report: IRON AND TIBC (Not yet revie wed by provider) Interpretation: Performing Lab: Notes/Report: [facility] , Iron 97.0 50.0-170.0 ug/dL Total Iron Binding Capacity 298.0 250.0-450.0 u g/dL Percent Iron Saturation 32.6 Performing Lab: see note ML - [facility] LB Reason For Referral Reason Upper Endoscopy Diagnosis 1 GINGER (iron deficiency anemia) (D50.9) Referral Organization [facility] Referring Provider First Name Ct Referring Provider Last Name Maury Referring Provider Speciality Hematology /Oncology Referred Organization Gastroenterology R nicol Referred Provider Pilar Dickey Referred Address [address],[facility] [address] [facility],[place], [place],[address], Referred Provider Specialty Gastroentero logy General Notes Ramya Badillo 04:03:28 PM >Pt Scheduled. Referral Priority Routine Medications Medication SIG (Take, Route, Frequency, Duration) Notes Start Date End Date Status Pantoprazole Sodium 20 MG 1 tablet Orall y BID for 90 days 04/18/2024 Active predniSONE 20 MG 2 tablets Orally Onc e a day for 5 days 02/13/2025 Active Slow Iron 160 (50 Fe) MG 1 tablet Orally Three times a Week for 90 days 04/18/2024 Active Triamcinolone Acetonide 0.1 % 1 application Externally bid 02/13/2025 Active Folic Acid 1 MG 1 tablet Orally Once a day Active Vitamin D3 125 MCG (5000 UT) 1 capsule Orally Once a day Active Vitamin C 500 MG 1 tablet Orally Once a day for 30 days 04/18/2024 Active Social History Tobacco Use: Social History Observation Description Date Details (start date - stop date) Current Smoker NA - NA Tobacco Use/Smoking Question Answer Notes Patient is a current smoker How often do you smoke cigarettes? every day How many cigarettes a day do you smoke? 11-20 Alcohol Screen (Audit-C) Question Answer Notes Did you have a drink contain ing alcohol in the past year? Yes How often did you have 6 or more drinks on one occasion in the past year? Monthly or less (1 point) How many drinks did you have on a typical day when you were drinking in the past year? 5 or 6 drinks (2 points) How often did you have a dri nk containing alcohol in the past year? Monthly (2 points) Points 5 Interpretation Positive Tobacco Control (Standard) Question Answer Notes Tobacco use: Current smoker AUDIT-C (Standard) Question Answer Notes Did you have a drink containing alcohol in the p ast year? 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 Esophageal biopsies did show Barretts esophagus with no dysplasia. Gastric biopsies were negative for H. pylori. Duodenal biopsies were normal. Problem Gastroesophageal reflux disease (652889800) GERD (gastroesopha geal reflux disease) (K21.9) Active confirmed EGD on 03/27/2024 which showed 3 tongues of salmon-colore d mucosa, medium hiatal hernia, nonbleeding diverticulum in the duodenum. Esophageal biopsies did show Barretts esophagus with no dysplasia. Gastric biopsies were negative for H. pylori. Duodenal biopsies were normal. Problem Arthritis (0710086) Arthritis (M19.90) Active confirmed Problem Smoker (35863013) Smoker (F17.200) Active confirmed Problem Contact dermatitis (96103001) Contact dermatitis (L25.9) Active confirmed Problem Iron deficiency anemia (24216128) GINGER (iron deficiency anemia) (D50.9) Active confirmed Problem Abnormal white blood cell (66146997) Abnormal white blood cell (D72.9) Active confirmed Problem 438351669 Personal history of colon polyps, unspecified (Z86.0100) Active confirmed colonoscopy on 03/27/2024 which showed large mouth diverticula in the sigmoid colon, grade 1 internal external hemorrhoids, 6 mm sessile serrated polyp in the transverse colon. Repeat colonoscopy was suggested in 5 years. Vital Signs Heart Rate 69 /min 04/18/2024 Blood pressure diastolic 84 mm Hg 02/13/2025 Height 59 in 02/13/2025 Blood pressure systolic 118 mm Hg 02/13/2025 Weight 108.0 lbs 02/13/2025 BMI 21.81 kg/m2 02/13/2025 Procedures Procedure Date Ordered Date Performed Result Body Sit e EGD w/Colonoscopy 03/15/2024 N/A Encounters Encounter Location Date Provider Diagnosis Gastroenterology Dic[facility] [address] [facility] [place] [address] 04/18/2024 Gisel Luis Iron deficiency anemia, unspecified D50.9 ; Beverly's esophagus without dysplasia K22.70 ; GERD (gastroesophageal reflux disease) K21.9 and Personal history of colon polyps, unspecified Z86.0100 [facility] Dic[facility] [address] [facility] [place] [address] 03/15/2024 Gisel Luis Iron deficiency anemia, unspecified D50.9 and GERD (gastroesophageal reflux disease) K21.9 [address] [place] [address] 10/25/2024 Suzy Talavera Plantar wart B07.0 [address] [place] [address] 02/13/2025 Romulo Hoy Contact dermatitis L25.[address] [address] 06/21/2024 Suzy Talavera Encounter for annual routine gynecological examination Z01.419 [facility] [address] [place] [address] [facility] [address] [facility] [place] [place] [address] 02/26/2025 [facility] [address] [facility] [place] [address] 04/17/2024 Ctarnulfo Mendiola [facility] [address] [place] [address] 03/27/2024 ASC Provider [facility] [address] [place] [address] 03/27/2024 Pilar Dickey [facility] [address] [place] [address] 03/15/2024 Pilar Dickey [facility] [address] [place] [address] 03/26/2024 Pilar Dickey [facility] [address] [place] [address] 04/18/2024 Gisel Luis [facility] [address] [facility] [address] 06/28/2024 Suzy Teresamer [facility] [address] [place] [address] 10/26/2024 Suzy Talavera Plantar wart B07.0 Assessments Encounter Date Diagnosis (ICD Code) Assessment Notes Treatment Notes Treatment Clinical Notes Section Notes 06/21/2024 Encounter for annual routine gynecological examination (ICD-10 - Z01.419) pap obtained pt tolerated well 10/25/2024 Plantar wart (ICD-10 - B07.0) cryotherapy fu podiatry if needed, referral sheet given 02/13/2025 Contact dermatitis (ICD-10 - L25.9) 10/26/2024 Plantar wart (ICD-10 - B07.0) 03/15/2024 Iron deficiency anemia, unspecified (ICD-10 - D50.9) She received 2 iron transfusions recently due to iron deficiency anemia. She does experience menorrhagia, but does not follow with a SOCIAL INSURANCE ANALYST doctor. She denies any rectal bleeding. She does have a history of GERD, and has been started on a PPI over the last 3 months which has improved her symptoms. Due to her iron-deficiency anemia I will order an EGD as well as a colonoscopy to rule out esophagitis, gastritis, peptic ulcer disease, colon polyps, or less likely neoplasm. I have discussed risks and benefits of the procedure with the Pt.. 03/15/2024 GERD (gastroesophageal reflux disease) (ICD-10 - K21.9) Well-controlled with a daily PPI. 04/18/2024 Iron deficiency anemia, unspecified (ICD-10 - D50.9) She received 2 iron transfusions recently due to iron deficiency anemia. She does experience menorrhagia, but does not follow with a SOCIAL INSURANCE ANALYST doctor. I suggest she follow up with the test preparation tutor doctor regarding menorrhagia. Anemia is most likely secondary to menorrhagia. I will send in slow iron as well as vitamin-C to her pharmacy. 04/18/2024 Beverly's esophagus without dysplasia (ICD-10 - K22.70) EGD on 03/27/2024 which showed 3 tongues of salmon-colored mucosa, medium hiatal hernia, nonbleeding diverticulum in the duodenum. Esophageal biopsies did show Barretts esophagus with no dysplasia. Gastric biopsies were negative for H. pylori. Duodenal biopsies were normal. She has a new diagnosis of Barretts esophagus, we discussed staying on a daily PPI indefinitely. I also did give her an educational pamphlet on Barretts esophagus and discussed routine EGDs, Dr. Dickey would like her to come back in a year for another EGD. Thereafter usually every 3 years. 04/18/2024 GERD (gastroesophageal reflux disease) (ICD-10 - K21.9) EGD on 03/27/2024 which showed 3 tongues of salmon-colored mucosa, medium hiatal hernia, nonbleeding diverticulum in the duodenum. Esophageal biopsies did show Barretts esophagus with no dysplasia. Gastric biopsies were negative for H. pylori. Duodenal biopsies were normal. She still experiences breakthrough symptoms of GERD and heartburn. I will send him pantoprazole 20 mg twice a day to see if this improves symptoms. If this is not I advised the Pt. to call the office and we can increase the dose. 04/18/2024 Personal history of colon polyps, unspecified (ICD-10 - Z86.0100) colonoscopy on 03/27/2024 which showed large mouth diverticula in the sigmoid colon, grade 1 internal external hemorrhoids, 6 mm sessile serrated polyp in the transverse colon. Repeat colonoscopy was suggested in 5 years. Recommend a repeat colonoscopy in 3 years. Plan Of Treatment Pending Test Test Name Order Date CMP (COMPLETE METABOLIC PANEL) HEMOGLOBIN A1C (GLYCO) 12/06/2023 LIPID PANEL (CHOL/TRIG/HDL/LDL) 12/06/19 CBC WITH DIFF 12/06/2023 EGD w/Colonoscopy 03/15/2024 Insulin Level 12/06/2023 CBC AUTO DIFF 01/02/2024 CBC AUTO DIFF 04/17/2024 CBC AUTO DIFF 08/16/2024 CBC AUTO DIFF 02/22/2025 CRP 01/31/2024 FERRITIN 01/31/2024 FERRITIN 02/22/2025 FERRITIN 08/16/2024 FERRITIN 04/17/2024 FOLATE 08/16/2024 FOLATE 02/22/2025 IRON AND TIBC 02/22/2025 IRON AND TIBC 08/16/2024 IRON AND TIBC 04/17/2024 LDH 01/31/2024 PROF 14(COMP METB) 08/16/2024 PROF 14(COMP METB) 02/22/2025 RHEUMATOID FACTOR 01/31/2024 VITAMIN D 25 [place] 02/22/2025 VITAMIN D 25 [place] 08/16/2024 VITAMIN D 25 [place] 04/17/2024 THYROID PANEL (T4/TSH/FREE T3) 4 ECHOCARDIO M/2D COMPLETE 12/06/2023 Erythrocyte Sedimentation Rate 4 Manual Differential 01/31/2024 MM tomosynthesis screening BI 02/01/2024 Anti-CCP Ab, IgG/IgA 01/31/2024 PIO w/Reflex 01/31/2024 SUE and PE, Serum 01/31/2024 Vitamin B12 04/17/2024 Vitamin B12 08/16/2024 Vitamin B12 02/22/2025 HLA B 27 Disease Association 01/31/2024 Next Appt Details Provider Name:Ct Mendiola , 08/06/2025 01:00:00 PM, [address] [place], [address], Insurance Providers Payer Name Payer Address Payer Phone Subscriber Number Group Number Insured Name Patient Relationship to Insured Coverage Start Date Coverage End Date [employer] [facility] [address] [place] [address] [id number] Juana Barone Self - patient is the insured Medical (General) History Medical History History ICD Code depression Surgical History Surgery Date(Month/Year) EGD 2023 colonoscopy 2023
--- NOTE | 2025-03-06 09:40 | MM_ITS ---
Patient Name: PALMA AVITIA MR#: [id number] : 1980 Exam Date: 03/06/2025 Ordering Doctor: RADHA RAMIREZ RADIOLOGY REPORT PROCEDURE: MM TOMOSYNTHESIS SCREENING BI COMPARISON: MM TOMOSYNTHESIS SCREENING BI, 02/01/2024. INDICATIONS: Screening Calculator Name NCI Breast Cancer Risk Assessment Tool 5 Year Breast Cancer Risk 0.70% Lifetime Breast Cancer Risk 10.90% Personal Breast Cancer No Personal Ovarian Cancer No Treatments None Family Cancers None LOCATION: [facility] BREAST COMPOSITION: The breasts are extremely dense, which lowers the sensitivity of mammography. FINDINGS: DIAGNOSTIC CATEGORY 1--NEGATIVE. RIGHT BREAST: No significant suspicious finding. LEFT BREAST: No significant suspicious finding. RECOMMENDATIONS: ROUTINE MAMMOGRAM AND CLINICAL EVALUATION IN 12 MONTHS. Dictated by: Cricket Cook DO on 03/06/2025 at 14:53 Approved by: Cricket Cook DO on 03/06/2025 at 14:54
--- OUTSIDE RECORDS SUMMARY | 2025-03-06 09:53 | XMS_ITS | CCD ---
Author Organization [facility] Care Team Providers Care Grassland Conservationist Name Role Phone REQUEST, DR NONE LISTED [...] 12-13-2020 BASO # 0.0 103/ul Normal 0.0-0.1 [facility] Comment on above: Performed By: #### C BC #### [facility] [address] [place], [place] [address] Diandra Samina Basophils/100 WBC (Bld) 0.1 % Critically low 0.2-2.0 [facility] Comment on above: Performed By: #### C BC #### [facility] [address] [place], [place] [address] Diandra Samina EO # 0.0 103/ul Normal 0.0-0.7 [facility] Comment on above: Performed By: #### C BC #### [facility] [address] [place], [place] [address] Diandra Samina Eosinophils/100 WBC (Bld) 0.0 % Critically low 0.9-7.0 [facility] Comment on above: Performed By: #### C BC #### [facility] [address] [place], [place] [address] Diandra Samina Erythrocyte distribution width (RBC) [Ratio] 15.4 % Critically high 11.0-15.0 [facility] Comment on above: Performed By: #### C BC #### [facility] [address] [place] [address] Diandradayna Haas Hematocrit (Bld) [Volume fraction] 38.0 % Normal 36.0-48.0 [facility] Comment on above: Performed By: #### C BC #### [facility] [address] [place] [address] Diandra Samina Hemoglobin (Bld) [Mass/Vol] 12.8 g/dL Normal 12.0-16.0 [facility] Comment on above: Performed By: #### C BC #### [facility] [address] [place] [address] Diandra Samina IG # 0.03 10e3/ul Normal 0.00-0.03 [facility] Comment on above: Performed By: #### C BC #### [facility] [address] [place] [address] Diandra Samina IG % 0.3 % Normal 0.0-0.5 [facility] Comment on above: Performed By: #### C BC #### [facility] [address] [place] [address] Diandra Samina LYMPH # 0.7 103/ul Critically low 1.2-3.8 [facility] Comment on above: Performed By: #### C BC #### [facility] [address] [place] [address] Diandra Haas Lymphocytes/100 WBC (Bld) 7.1 % Critically low 20.5-60.0 [facility] Comment on above: Performed By: #### C BC #### [facility] [address] [place] [address] Diandra Haas MANUAL DIFF REQ NO Normal [facility] Comment on above: Performed By: #### C BC #### [facility] [address] [place], [place] [phone] Diandra Haas MCH (RBC) [Entitic mass] 30.0 pg Normal 26.7-34.0 [facility] Comment on above: Performed By: #### C BC #### [facility] [address] [place] [address] Diandradayna Coleen MCHC (RBC) [Mass/Vol] 33.7 g/dL Normal 29.9-35.2 [facility] Comment on above: Performed By: #### C BC #### [facility] [address] [place] [id number] Diandra Haas MCV (RBC) [Entitic vol] 89.0 fL Normal 81.0-99.0 [facility] Comment on above: Performed By: #### C BC #### [facility] [address] [place] [id number] Diandra Haas MONO # 0.1 103/ul Critically low 0.3-0.8 [facility] Comment on above: Performed By: #### C BC #### [facility] [address] [place], [place] [address] Diandra Haas Monocytes/100 WBC (Bld) 0.5 % Critically low 1.7-12.0 [facility] Comment on above: Performed By: #### C BC #### [facility] [address] [place] [id number] Diandra Coleen NEUT # 9.1 103/ul Critically high 1.4-6.5 [facility] Comment on above: Performed By: #### C BC #### [facility] [address] [place], [place] [address] Diandra Haas Neutrophils/100 WBC (Bld) 92.0 % Critically high 43.0-75.0 [facility] Comment on above: Performed By: #### C BC #### [facility] [address] [place] [id number] Diandra Haas Platelet mean volume (Bld) [Entitic vol] 9.7 fL Normal 9.5-13.5 [facility] Comment on above: Performed By: #### C BC #### [facility] [address] [place], [place] [address] Diandradayna Coleen PLT 307 103/ul Normal 150-450 [facility] Comment on above: Performed By: #### C BC #### [facility] [address] [place] [phone] Diandra Samina RBC 4.27 106/ul Normal 4.20-5.40 [facility] Comment on above: Performed By: #### C BC #### [facility] [address] [place], [place] [address] Diandra Samina WBC 9.9 103/ul Normal 4.0-11.0 [facility] Comment on above: Performed By: #### C BC #### [facility] [address] [place] [phone] Diandradayna Haas PROF 14(COMP METB)on 021 Albumin [Mass/Vol] 4.1 g/dL Normal 3.5-5.0 [facility] Comment on above: Performed By: #### C MP #### [facility] [address] [place], [place] [address] Diandra Samina Albumin/Globulin [Mass ratio] 1.1 {ratio} Normal [facility] Comment on above: Performed By: #### C MP #### [facility] [address] [place], [place] [address] Diandra Samina ALP [Catalytic activity/Vol] 76 U/L Normal 38-126 [facility] Comment on above: Performed By: #### C MP #### [facility] [address] [place], [place] [address] Diandra Samina ALT [Catalytic activity/Vol] 15 U/L Normal 9-52 [facility] Comment on above: Performed By: #### C MP #### [facility] [address] [place], [place] [address] Diandra Samina Anion gap [Moles/Vol] 19.7 mmol/L Normal [facility] Comment on above: Performed By: #### C MP #### [facility] [address] [place], [place] [address] Diandra Samina AST [Catalytic activity/Vol] 10 U/L Critically low 14-36 [facility] Comment on above: Performed By: #### C MP #### [facility] [address] [place], [place] [address] Diandra Samina Bilirubin [Mass/Vol] 0.1 mg/dL Critically low 0.2-1.3 [facility] Comment on above: Performed By: #### C MP #### [facility] [address] [place] [address] Diandra Samina Calcium [Mass/Vol] 9.3 mg/dL Normal 8.4-10.2 [facility] Comment on above: Performed By: #### C MP #### [facility] [address] [place] [address] Diandra Samina Chloride [Moles/Vol] 108 mmol/L Critically high 98-107 [facility] Comment on above: Performed By: #### C MP #### [facility] [address] [place] [address] Diandra Samina CO2 [Moles/Vol] 21.5 mmol/L Critically low 22.0-30.0 [facility] Comment on above: Performed By: #### C MP #### [facility] [address] [place] [address] Diandra Samina Creatinine [Mass/Vol] 0.68 mg/dL Normal 0.52-1.04 [facility] Comment on above: Performed By: #### C MP #### [facility] [address] [place], [place] [address] Diandra Samina EGFR-AF ISRAELI >60 Normal >=60 [facility] Comment on above: Performed By: #### C MP #### [facility] [address] [place] [address] Diandra Samina EGFR-NON AF ISRAELI >60 Normal >=60 [facility] Comment on above: Performed By: #### C MP #### [facility] [address] [place], [place] [address] Diandra Samina Globulin (S) [Mass/Vol] 3.7 g/dL Normal [facility] Comment on above: Performed By: #### C MP #### [facility] [address] [place], [place] [address] Diandra Samina Glucose [Mass/Vol] 165 mg/dL Critically high 74-106 [facility] Comment on above: Performed By: #### C MP #### [facility] [address] [place] [address] Diandra Samina Potassium [Moles/Vol] 4.2 mmol/L Normal 3.4-5.0 [facility] Comment on above: Performed By: #### C MP #### [facility] [address] [place] [id number] Diandra Samina Protein [Mass/Vol] 7.8 g/dL Normal 6.1-8.2 [facility] Comment on above: Performed By: #### C MP #### [facility] [address] [place] [phone] Diandra Samina Sodium [Moles/Vol] 145 mmol/L Normal 137-145 [facility] Comment on above: Performed By: #### C MP #### [facility] [address] [place], [place] [address] Diandra Samina Urea nitrogen [Mass/Vol] 5.0 mg/dL Critically low 7.0-17.0 [facility] Comment on above: Performed By: #### C MP #### [facility] [address] [place] [address] Diandra Samina Urea nitrogen/Creatinin e [Mass ratio] 7.4 mg/mg Normal [facility] Comment on above: Performed By: #### C MP #### [facility] [address] [place], [place] [address] Diandra Haas PROTIMEon 12-13-2020 INR Coag (PPP) [Relative time] {INR} Normal [facility] Comment on above: Performed By: #### P TT, PT #### [facility] [address] [place], [place] [address] Diandradayna Haas INR GUIDELINES SEE BELOW Normal [facility] Comment on above: Result Comment: ESTRELLA RED INR: 2.0 - 3.0 CONDITIONS NOT LISTED BELOW 2.5 - 3.5 FOR PROSTHETIC HEART VALVE REPLACEMENT 2.5 - 3.5 RECURRENT THROMBOSIS Performed By: #### P TT, PT #### [facility] [address] [place], [place] [address] Diandra Haas PT Coag (PPP) [Time] 10.0 s Normal 9.0-11.6 [facility] Comment on above: Performed By: #### P TT, PT #### [facility] [address] [place], [place] [address] Diandra Haas PTTon 12-13-2020 aPTT Coag (Bld) [Time] 24.1 s Normal 22.3-36.2 [facility] Comment on above: Performed By: #### P TT, PT #### [facility] [address] [place], [place] [address] Diandra Haas CYTOLOGYon 04-12-2017 CYTOLOGY Specimen #: [id number] Physician: SEAN REYES D.O.SPECIMEN SUBMITTEDA: CERVICAL, SCREENING, FLUID FI NAL DIAGNOSISA. CERVICAL, SCREENING, FLUIDSatisfactory for interpretation.Negative for intraepithelial lesion or malignancy.Fungal organisms morphologically consistent with Tory species.This specimen has been analyzed by the ThinPrep Imaging System, [employer] imaging and review system, which assists the laboratory inevaluating cells on ThinPrep Pap tests. Following automated imaging,selected morales from every slide are reviewed by a occupational therapy technician.ARI Finn(ASCP) (Electronic Signature) CL INICAL DATA HPV TESTING: YES, REFLEXClinical History:ROUTINESTAINSA: CERVICAL, SCREENING, FLUID THIN PREP Myla Enrique M.D., Laboratory DirectorPatient ID #: [id number] of Report: 04/15/2017Date of Procedure: 04/12/2017Date of Receipt: 04/13/2017Submitted by: SEAN REYES D.O.Location: Diagnostic interpretation performed at [facility], [address] [place] [address].The Pap Smear is a screening test for cervical cancer. False negativeresults occur with all screening tests, emphasizing the need forrescreening at recommended intervals, and clinical correlation. Normal [facility] Comment on above: Performed By: #### C ####See report for performing lab information. Encounters Encounter Date Encounter Type Care Provider Facility Start: 12-13-2020 End: 12-13-2020 ambulatory NONE LISTED REQUEST Facility: Start: 12-12-2020 End: 12-12-[address] MILDRED MAN Facility:[facility] Payers Date Payer Category Payer Unknown [id number] 1980 Unknown [id number] Self-pay [id number] Summary Purpose Family History No Family History Records FoundNo Family History Records Found Advance Directives No Advanced Directives Records FoundNo Advanced Directives Records Found Additional Source Comments INFORMATION SOURCE (unrecogn ized section and content) DATE CREATED AUTHOR 01/04/2018 [facility] DATE CREATED AUTHOR AUTHOR'S ORGANIZ ATION 12/13/2020 [facility] PERTAINING TO PATIENTS WHO [...] BE BASED ON THE PRIMARY CLINICAL RECORDS. [employer] provides no warranty or guarantee of the accuracy or completeness of information in this document.
== END 2025-03-06 09:35 | disposition home or self-care (01) ==
LOC: MAMMO 09:34
PROVIDERS: Visit Provider Internal Medicine Hematology & Oncology
DX: D72.829 Elevated white blood cell count, unspecified (principal); Z12.31 Encounter for screening mammogram for malignant neoplasm of breast; Z80.9 Family history of malignant neoplasm, unspecified; D50.9 Iron deficiency anemia, unspecified; K90.9 Intestinal malabsorption, unspecified
CPT/HCPCS: 77063; 77067

== ENCOUNTER 2025-07-10 16:08 | Outpatient (OUT) | payer OTHER, SELFPAY ==
--- OUTSIDE RECORDS SUMMARY | 2024-08-21 03:45 | XMS_ITS ---
Author Organization [facility] in [place] Address [address] [place] [address] Care Team Providers Care Rice Farmworker Name Role Phone MILTON TALAVERA CNP Primary Care Provider Ct Knight Unavailable [phone] REASON FOR VISIT MD Encounters Encounter Location Date Provider Diagnosis [facility] [address] [place] [address] Plan Of Treatment Next Appt Details Provider Name:Joi Mckeon, 06/20/2026 10:00:00 AM, [address], [address] [facility], [place], [address], Progress Notes * Juana AVITIADOB: 3 (44 yo F)Acc No.[id number]:2024 UNLOCKED PROGRESS NOTE Progress Notes Patient: Juana EGAN :?Ct Mendiola M.D.:1980???Age:44 Y ???Sex:FemaleDate:2024Phone:[phone]:[address] [place] [address] [address], [place], [id number]:MILTON TALAVERA CNP Subjective: * Chief Complaints: * 1 . MD. * Medical History: Objective: * Vitals: Assessment: Plan: * Treatment: * * Electronic signature of Ct Knight MD, [id number] on 07/10/2025 at 04:13 PM ESTSign off status: PendingVisit Status:?PEN (Pending) * Provider: Charley Mendiola M.D. Date: 0 2024 Generated for Printing/Faxing/eTransmitting on:?07/10/2025 04:13 PM EST
--- OUTSIDE RECORDS SUMMARY | 2024-08-28 03:30 | XMS_ITS ---
Author Organization [facility] [place] Address [address] [place] [address] Care Team Providers Care Training Executive Name Role Phone MILTON TALAVERA CNP Primary Care Provider Ct Knight Unavailable [phone] REASON FOR VISIT MD Encounters Encounter Location Date Provider Diagnosis [facility] [address] [place] [address] 08/28/2024 Ct Knight Plan Of Treatment Next Appt Details Provider Name:Joi Mckeon, 06/20/2026 10:00:00 AM, [address], [address] [place], [address], Progress Notes * Juana AVITIADOB: [birth year] (44 yo F)Acc No.[id number]:08/28/2024 UNLOCKED PROGRESS NOTE Progress Notes Patient: Juana EGAN :?Ct Mendiola M.D.:1980???Age:44 Y ???Sex:FemaleDate:08/28/2024Phone:[phone]:[address] [place] [address] [address], [place], [id number]:MILTON TALAVERA CNP Subjective: * Chief Complaints: * 1 . MD. * Medical History: Objective: * Vitals: Assessment: Plan: * Treatment: * * Electronic signature of Ct Knight MD, [id number] on 07/10/2025 at 04:12 PM ESTSign off status: PendingVisit Status:?CANC (Cancelled) * Provider: Charley Mendiola M.D. Date: 0 08/28/2024 Generated for Printing/Faxing/eTransmitting on:?07/10/2025 04:12 PM EST
--- OUTSIDE RECORDS SUMMARY | 2025-02-26 03:30 | XMS_ITS ---
Author Organization The [facility] in [place] Address [address] [place] [address] Care Team Providers Care Second Facing Baster Name Role Phone MILTON TALAVERA CNP Primary Care Provider Ct Knight Unavailable [phone] REASON FOR VISIT MD Encounters Encounter Location Date Provider Diagnosis [facility] [address] [place] [address] 02/26/2025 Ct Knight Plan Of Treatment Next Appt Details Provider Name:Joi Mckeon, 06/20/2026 10:00:00 AM, [address], [address] [facility], [place], [address], Progress Notes * Juana AVITIADOB: [birth year] (44 yo F)Acc No.[id number]:02/26/2025 UNLOCKED PROGRESS NOTE Progress Notes Patient: Juana EGAN :?Ct Mendiola M.D.:1980???Age:44 Y ???Sex:FemaleDate:02/26/2025Phone:[phone]:[address] [place] [address] [address], [place], [id number]:MILTON TALAVERA CNP Subjective: * Chief Complaints: * 1 . MD. * Medical History: Objective: * Vitals: Assessment: Plan: * Treatment: * * Electronic signature of Ct Knight MD, [id number] on 07/10/2025 at 04:12 PM ESTSign off status: PendingVisit Status:?PEN (Pending) * Provider: Charley Mendiola M.D. Date: 0 02/26/2025 Generated for Printing/Faxing/eTransmitting on:?07/10/2025 04:12 PM EST
--- OUTSIDE RECORDS SUMMARY | 2025-07-05 08:15 | XMS_ITS ---
Author Organization [facility] in [employer] Address [address] [place] [address] Care Team Providers Care Mail Reader Name Role Phone MILTON TALAVERA CNP Primary Care Provider Provider, [facility] Unavailable [phone] Encounters Encounter Location Date Provider Diagnosis [facility] [address] [place] [address] 07/05/2025 ASC Provider Plan Of Treatment Next Appt Details Provider Name:Joi Mckeon, 06/20/2026 10:00:00 AM, [address], [place], [address], Progress Notes * ADORE JuanaDOB: 3 (44 yo F)Acc No.[id number]:07/05/2025 UNLOCKED PROGRESS NOTE [facility] Surgery Patient: Juana EGAN :?ASC ProviderDOB:1980???Age:44 Y???Sex: FemaleDate:07/05/2025Phone:[phone]:[address] [place] [place] [address] [address] [id number]:Nathanael REIS In:12:50 PM EST Subjective: * Chief Complaints: * * Medical History: Objective: * Vitals: Assessment: Plan: * Treatment: * * Electronic signature of [facility] Provider on 07/10/2025 at 04:13 PM ESTSign off status: PendingVisit Status:?ARR (Check-In) * Provider: Charley GENTILE Provider Date: 1 09/05/2024 Generated for Printing/Faxing/eTransmitting on:?07/10/2025 04:13 PM EST
--- OUTSIDE RECORDS SUMMARY | 2025-07-05 08:15 | XMS_ITS ---
Author Organization [facility] in [place] Address [address] [place] [address] Care Team Providers Care Machine Hamper Maker Name Role Phone MILTON TALAVERA CNP Primary Care Provider [phone] Pilar Dickey Unavailable [phone] REASON FOR VISIT MEGD tci lb [facility] [employer] 06/14 Encounters Encounter Location Date Provider Diagnosis [facility] [address] [place] [address] 07/05/2025 Pilar Dickey Plan Of Treatment Next Appt Details Provider Name:Joi Mckeon, 06/20/2026 10:00:00 AM, [address], [address] [place], [address], Progress Notes * Juana AVITIADOB: 3 (44 yo F)Acc No.[id number]:07/05/2025 UNLOCKED PROGRESS NOTE Op Note Patient: Juana EGAN :?Pilar Dickey MDDOB:1980???Age:44 Y ???Sex:FemaleDate:07/05/2025Phone:[phone]:[address] [place] [address] [address], [place], [id number]:MILTON TALAVERA CNP Subjective: * Chief Complaints: * 1 . MEGD tci lb [facility] [employer] 06/14. * Medical History: Objective: * Vitals: Assessment: Plan: * Treatment: * * Electronic signature of Pilar Dickey MD, [id number] on 07/10/2025 at 04:12 PM EST Sign off status: PendingVisit Status:?CONFPHONE (Voice) * Provider: Eugene Dickey MD Date: 1 09/05/2024 Generated for Printing/Faxing/eTransmitting on:?07/10/2025 04:12 PM EST
--- OUTSIDE RECORDS SUMMARY | 2025-07-10 16:13 | XMS_ITS | Patient Health Record ---
Author Organization [facility] in [place] Address [address] [place] [address] Care Team Providers Care Director Public Service Name Role Phone SUZY OCONNELL CNP Primary Care Provider [phone] Pilar Dickey Unavailable [phone] Provider, GRAY Unavailable [phone] Joi Mckeon Unavailable [phone] Radha Knight Unavailable [phone] Romulo Funk Unavailable [phone] Suzy Oconnell Unavailable [phone] Allergies No Known Allergies Results Component Value Reference Range Notes CBC AUTO DIFF Reviewed date:07/08/2025 02:52:53 PM Interpretation: Performing Lab: Notes/Report: [facility] , White Blood Count 12.7 4.0-11.0 10 3/uL Red Blood Count4.414.20-5.40 10 6/vRBdshlkiirz80.912.0-16.0 g/pCMlybkbpoap03.0 36.0-48.0 %Mean Corpuscular Wyuyjv40.081.0-99.0 fLMean Corpuscular Hemoglobin 31.526.7-34.0 pgMean Corpuscular HGB Conc33.929.9-35.2 g/dLRed Cell Distribution Width13.811.0-15.0 %Platelet Pgxec721375-577 10 3/uLMean Platelet Lwjgaq44.19.5- 13.5 fLNeutrophils Percent Auto63.343.0-75.0 %Lymphocytes Percent Auto27.920.5- 60.0 %Monocytes Percent Auto6.31.7-12.0 %Eosinophils Percent Auto1.80.9-7.0 % Basophils Percent Auto0.50.2-2.0 %Immature Granulocytes Pct Auto0.20.0-0.5 % Neutrophils Absolute Auto8.11.4-6.5 10 3/uLLymphocytes Absolute Auto3.61.2-3.8 10 3/uLMonocytes Absolute Auto0.80.3-0.8 10 3/uLEosinophils Absolute Auto0.20.0- 0.7 10 3/uLBasophils Absolute Auto0.10.0-0.1 10 3/uLImmature Granulocytes Abs Auto0.030.00-0.03 10 3/uLPerforming Lab:see noteML - [facility] LB FERRITIN Reviewed date:07/08/2025 02:52:53 PM Interpretation: Performing Lab: Notes/Report: [facility] ,Lodmdzkv907.08.0-252.0 ng/mLPerforming Lab:see noteML - [facility] LBFOLATE Reviewed date:07/08/2025 02:52:53 PM Interpretation: Performing Lab: Notes/Report: [facility] ,Folate3.608.60-58.90 ng/mLPerforming Lab:see note - [facility] LB IRON AND TIBC Reviewed date:07/08/2025 02:52:53 PM Interpretation: Performing Lab: Notes/Report: [facility] ,Ubnz728.050.0-170.0 ug/dLTotal Iron Binding Whcnhjdi780.0250.0-450.0 ug/dL Percent Iron Eoqltznxru49.6Performing Lab:see noteML - [facility] LB PROF 14(COMP METB) Reviewed date:07/08/2025 02:52:53 PM Interpretation: Performing Lab: Notes/Report: [facility] ,Qzhlgt113782-792 mmol/LPotassium3.63.5-5.1 mmol/JFkagbpji38012-979 mmol/LCarbon Qjalbwl25.121.0-32.0 mmol/LAnion Gap14.4Iotdtps6364-512 mg/dLBlood Urea Nitrogen 10.07.0-18.0 mg/dLCreatinine0.770.55-1.02 mg/dLEstimated GFR ( Nicole>60 >=60 mL/min/1.73m 2Estimated GFR (Non- Adrienne>60>=60 mL/min/1.73m 2BUN Creatinine Ratio13.1Rtokwif8.28.5-10.1 mg/dLBilirubin Total0.20.2-1.0 mg/dL Aspartate Amino Vyxnxdadkls6540-86 U/LAlanine Ougfposxkpuqmcxh6222-75 U/L Alkaline Gjjdkjwdpjs7123-118 U/LTotal Protein7.16.4-8.2 g/dLAlbumin Level3.83.4- 5.0 g/dLGlobulin3.3Albumin Globulin Ratio1.2Performing Lab:[facility] LBVITAMIN D 25 [place] Reviewed date:07/08/2025 02:52:53 PM Interpretation: Performing Lab: Notes/Report: [facility] ,Vitamin D24.4 <20 ng/mL Vit D deficient 20-<30 ng/mL Vit D insufficient 30-100 ng/mL Vit D sufficient >100 ng/mL Potential Toxicity Performing Lab:see [facility] Reviewed date:07/08/2025 02:52:53 PM Interpretation: Performing Lab: Notes/Report: [facility] ,Vitamin N34625499-3393 pg/mL Performed at: [address] [id number] Catering Server: Tj Nassar PhD, Phone: [phone] Performing Lab:[facility] LBFERRITIN Reviewed date:07/08/2025 02:52:53 PM Interpretation: Performing Lab: Notes/Report: [facility] ,Wjcfeqpl967.08.0-252.0 ng/mLPerforming Lab:see [facility] LBFOLATE Reviewed date:07/08/2025 02:52:53 PM Interpretation: Performing Lab: Notes/Report: [facility] ,Qnzokt38.108.60-58.90 ng/mLPerforming Lab:see [facility] LB VITAMIN D 25 [place] Reviewed date:07/08/2025 02:52:53 PM Interpretation: Performing Lab: Notes/Report: [facility] ,Vitamin D66.1 <20 ng/mL Vit D deficient 20-<30 ng/mL Vit D insufficient 30-100 ng/mL Vit D sufficient >100 ng/mL Potential Toxicity Performing Lab:see noteML - [facility] LBMM tomosynthesis screening BI Reviewed date:07/08/2025 02:52:53 PM Interpretation: Performing Lab: Notes/Report: Source Facility: [facility]-[address] [place] [address] [place] [address] Mammography Report Signed Patient: PALMA AVITIA MR#: [id number] : 1980 Acct:[id number] Age/Sex: 44 / F ADM Date: 03/06/25 Loc: MAMMO Attending Dr: Radha Mendiola M.D. Ordering Physician: Radha Mendiola M.D. Results: Date of Service: 03/06/25 Follow Up: Procedure(s): MM tomosynthesis screening BI Accession Number(s): [id number] cc: Radha Mendiola M.D.; Physician,Non-Staff Dave Patient Name: PALMA AVITIA MR#: [id number] : 1980 Exam Date: 03/06/2025 Ordering Doctor: RADHA MENDIOLA RADIOLOGY REPORT PROCEDURE: MM TOMOSYNTHESIS SCREENING BI COMPARISON: MM TOMOSYNTHESIS SCREENING BI, 02/01/2024. INDICATIONS: Screening Calculator Name NCI Breast Cancer Risk Assessment Tool 5 Year Breast Cancer Risk 0.70% Lifetime Breast Cancer Risk 10.90% Personal Breast Cancer No Personal Ovarian Cancer No Treatments None Family Cancers None LOCATION: [facility] BREAST COMPOSITION: The breasts are extremely dense, which lowers the sensitivity of mammography. FINDINGS: DIAGNOSTIC CATEGORY 1--NEGATIVE. RIGHT BREAST: No significant suspicious finding. LEFT BREAST: No significant suspicious finding. RECOMMENDATIONS: ROUTINE MAMMOGRAM AND CLINICAL EVALUATION IN 12 MONTHS. Dictated by: Cricket Cook DO on 03/06/2025 at 14:53 Approved by: Cricket Cook DO on 03/06/2025 at 14:54 Dictated By: Cricket Cook M.D. Signed By: 03/06/251454 DD/ 53 TD/TT: Fly Raiser Lockstitch:Upper GI endoscopy Reviewed date:07/08/2025 02:52:53 PM Interpretation: Performing Lab: Notes/Report:Surgical Path (TTC) (Not yet reviewed by provider) Interpretation: Performing Lab:[facility], [address], [place], [address] PH:[phone] Notes/Report: Case #: [id number] Specimen(s) Received: A. Esophagus, Biopsy B. Stomach, Nodule Biopsy Clinical Information: Heartburn, Surveillance for malignancy due to personal history of Beverly's esophagus. Esophageal mucosal changes classified as Beverly's stage C1-M4 per [place] criteria. Biopsied.- A single mucosal papule (nodule) found in the stomach. It maybe a Xanthelesma . Completely removed. Final Diagnosis: A. Esophagus, Biopsy: Squamocolumnar mucosa with intestinal metaplasia, consistent with Beverly's assess No dysplasia is identified. B. 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 No Helicobacter organisms identified by H&E. Report Electronically Signed Out Carol Tafoya MD , Pathologist (Case signed 07/10/2025 at 10:52) Gross Description: A. The specimen is received formalin-filled, labeled with patient identification. Received in formalin are multiple flecks of soft moreno tissue that aggregate to 0.8 x 0.5 x 0.1 cm in greatest dimension. The entire specimen is submitted as received in one cassette. [place]. B. The specimen is received formalin-filled, labeled with patient identification. Received in formalin are multiple portions of soft moreno tissue that aggregate to 0.5 x 0.4 x 0.1 cm in greatest dimension. The entire specimen is submitted as received in one cassette. [place]. Microscopic Findings: A. Sections (1 H&E stained slide, including levels) show fragments of stratified squamous and glandular mucosa, which is gastric type. In the glandular mucosal fragments, there is intestinal metaplasia with goblet cells seen within the gastric tubules and along the overlying surface epithelium, the latter evidence of maturation. In the background, there is mild chronic inflammation. No dysplasia is identified. B. Sections (1 H&E stained slide, with levels) show fragments of gastric mucosa composed of mucus and oxyntic tubules. There are fragments with reactive foveolar hyperplasia with the corresponding lamina propria showing collections of foamy histiocytes without atypia. No Helicobacter organisms are identified by H&E. Fee Code(s) : Code CPT Count 02081 75267 2 Vitamin B12 Reviewed date:07/08/2025 02:52:53 PM Interpretation: Performing Lab: Notes/Report: [facility] ,Vitamin [id number] pg/mL Performed at: - [address] [id number] Catering Server: Tj Nassar PhD, Phone: [phone] Performing Lab:see noteLC - [facility] LBPROF 14(COMP METB) Reviewed date:07/08/2025 02:52:53 PM Interpretation: Performing Lab: Notes/Report: [facility] ,Hxllmq546125-888 mmol/LPotassium4.13.5-5.1 mmol/NGbrbeywr44329-341 mmol/LCarbon Koxjsbp83.221.0-32.0 mmol/LAnion Gap8.0Oibnnts0546-338 mg/dLBlood Urea Nitrogen 9.07.0-18.0 mg/dLCreatinine0.630.55-1.02 mg/dLEstimated GFR ( Nicole>60 >=60 mL/min/1.73m 2Estimated GFR (Non- Adrienne>60>=60 mL/min/1.73m 2BUN Creatinine Ratio14.8Ubedvmi0.78.5-10.1 mg/dLBilirubin Total0.30.2-1.0 mg/dL Aspartate Amino Vhjskdafosj8914-83 U/LAlanine Vfdyjynmudukfqys3811-24 U/L Alkaline Rdeeqfbantc8314-991 U/LTotal Protein7.46.4-8.2 g/dLAlbumin Level4.03.4- 5.0 g/dLGlobulin3.4Albumin Globulin Ratio1.2Performing Lab:see noteML - [facility] LBIRON AND TIBC Reviewed date:07/08/2025 02:52:53 PM Interpretation: Performing Lab: Notes/Report: [facility] ,Iron77.050.0-170.0 ug/dLTotal Iron Binding Esfttewi565.0250.0-450.0 ug/dL Percent Iron Oclkdntcyt28.8Performing Lab:see noteML - [facility] LB CBC AUTO DIFF Reviewed date:07/08/2025 02:52:53 PM Interpretation: Performing Lab: Notes/Report: [facility] ,White Blood Count10.34.0-11.0 10 3/uLRed Blood Count4.504.20-5.40 10 6/uL Vpcaoffnca69.912.0-16.0 g/gGCfixsaaelz33.636.0-48.0 %Mean Corpuscular Dhjsct97.4 81.0-99.0 fLMean Corpuscular Aepbiueovg57.926.7-34.0 pgMean Corpuscular HGB Conc 33.429.9-35.2 g/dLRed Cell Distribution Width13.911.0-15.0 %Platelet Kkyct697 150-450 10 3/uLMean Platelet Vyksto84.69.5-13.5 fLNeutrophils Percent Auto64.6 43.0-75.0 %Lymphocytes Percent Auto27.620.5-60.0 %Monocytes Percent Auto4.71.7- 12.0 %Eosinophils Percent Auto1.90.9-7.0 %Basophils Percent Auto0.90.2-2.0 % Immature Granulocytes Pct Auto0.30.0-0.5 %Neutrophils Absolute Auto6.71.4-6.5 10 3/uLLymphocytes Absolute Auto2.91.2-3.8 10 3/uLMonocytes Absolute Auto0.50.3-0.8 10 3/uLEosinophils Absolute Auto0.20.0-0.7 10 3/uLBasophils Absolute Auto0.10.0- 0.1 10 3/uLImmature Granulocytes Abs Auto0.030.00-0.03 10 3/uLPerforming Lab:see noteML - [facility] LB Reason For Referral No Information Medications Medication SIG (Take, Route, Frequency, Duration) Notes Start Date End Date Status Slow Iron 160 (50 Fe) MG TAKE 1 TABLET B Y MOUTH THREE TIMES A WEEK; Duration: 28 ActiveTriamcinolone Acetonide 0.1 %1 application Externally bid02/13/2025 Not-TakingpredniSONE 20 MG2 tablets Orally Once a day; Duration: 5 days 02/13/2025Not-TakingCVS Vitamin C 500 MGTAKE 1 TABLET BY MOUTH EVERY DAY FOR 30 DAYS; Duration: 90ActiveFolic Acid 1 MG1 tablet Orally Once a dayActive Pantoprazole Sodium 20 MGTAKE 1 TABLET BY MOUTH TWICE A DAY FOR 90 DAYS; Duration: 90ActiveVitamin D3 125 MCG (5000 UT)1 capsule Orally Once a dayActive Social History Tobacco Use: Social History Observation Description Date Details (start date - stop date) Current Smoker NA - NA Tobacco Use/Smoking Question Answer Notes Patient is a current smoker How often do you smoke cigarettes?every dayHow many cigarettes a day do you smoke?11Alcohol Screen (Audit-C) Question Answer Notes Did you have a drink containing alcohol in the p ast year? Yes How often did you have 6 or more drinks on one occasion in the past year?Monthly or less (1 point)How many drinks did you have on a typical day when you were drinking in the past year?5 or 6 drinks (2 points)How often did you have a drink containing alcohol in the past year?Monthly (2 points)Nrvrye3Jjqnquwafvmonh PositiveTobacco Control (Standard) Question Answer Notes Tobacco use: Current smoker AUDIT-C (Standard) Question Answer Notes Did you have a drink containing alcohol in the p ast year? No Ijqhpe3JkvibgkchkahjaKymagfvp Problems Problem Type SNOMED Code ICD Code Onset Dates Problem Status W/U Status Risk Notes Problem Iron deficiency anemia (31683261 ) Iron deficiency anemia, unspecified (D50.9) ActiveconfirmedProblemPlantar wart (94050016)Plantar wart (B07.0)Activeconfirmed ProblemBarrett's esophagus (524191276)Beverly's esophagus without dysplasia (K22.70)ActiveconfirmedEGD on 03/27/2024 which showed 3 tongues of salmon- colored mucosa, medium hiatal hernia, nonbleeding diverticulum in the duodenum. Esophageal biopsies did show Barretts esophagus with no dysplasia. Gastric biopsies were negative for H. pylori. Duodenal biopsies were normal.Problem Gastroesophageal reflux disease (517427369)GERD (gastroesophageal reflux disease) (K21.9)ActiveconfirmedEGD on 03/27/2024 which showed 3 tongues of salmon-colored mucosa, medium hiatal hernia, nonbleeding diverticulum in the duodenum. Esophageal biopsies did show Barretts esophagus with no dysplasia. Ga stric biopsies were negative for H. pylori. Duodenal biopsies were normal. ProblemArthritis (4393935)Arthritis (M19.90)ActiveconfirmedProblemSmoker (23414127)Smoker (F17.200)ActiveconfirmedProblemContact dermatitis (11439510) Contact dermatitis (L25.9)ActiveconfirmedProblemIron deficiency anemia (75602427)GINGER (iron deficiency anemia) (D50.9)ActiveconfirmedProblemAbnormal white blood cell (38662852)Abnormal white blood cell (D72.9)Activeconfirmed ProblemHistory of polyp of colon (situation) (368940163)Personal history of colon polyps, unspecified (Z86.0100)Activeconfirmedcolonoscopy on 03/27/2024 which showed large mouth diverticula in the sigmoid colon, grade 1 internal external hemorrhoids, 6 mm sessile serrated polyp in the transverse colon. Repeat colonoscopy wassuggested in 5 years. Vital Signs Heart Rate 71 /min 06/14/2025 Blood pressure spcyqpsik03 mm Hg06/14/20252773Rkwhjt63 in06/14/2025lood pressure quftudih527 mm Hg06/14/20253866Zautsb603 lbs108/15/2024BMI22.01 kg/m206/14/2025 Procedures Procedure Date Ordered Date Performed Result Body Sit e EGD 06/14/2025 N/A Encounters Encounter Location Date Provider Diagnosis [facility] [address] [place] [address] 10/26/2024 Suzy Oconnell Plantar wart B07.0 [facility] [address] [place] [address] 05/10/2025 Suzy Oconnell Iron deficiency anemia, unspecified D50.9 [facility] [address] [place] [address] 06/19/2025 Suzy Oconnell [facility] [address] [place] [address] [facility] [id number] [place] [address]/5[facility] [place] [place] [address]/Pamela CramerPlantar wart B07.0[facility] [place] [place] [address]/12/2024 Romulo HoyContact dermatitis L25.9Gastroenterology [address] [place] [address]/11/2024Tracey MorranIron deficiency anemia, unspecified D50.9 ; Beverly's esophagus without dysplasia K22.70 ; GERD (gas troesophageal reflux disease) K21.9 and Personal history of colon polyps, unspecified Z86.0100[facility] [address] [place] [address]/Sapna [facility] [address] [place] [address]/[facility] [address] [place] [address]/[facility] Assessments Encounter Date Diagnosis (ICD Code) Assessment Notes Treatment Notes Treatment Clinical Notes Section Notes 10/25/2024 Plantar wart (ICD-10 - B07.0) cryotherapy fu podiatry if needed, referral sheet given 02/13/2025ontact dermatitis (ICD-10 - L25.9)06/14/2025Iron deficiency anemia, unspecified (ICD-10 - D50.9)Anemia is followed by Dr. Mendiola. She is on oral iron. She has received iron infusions in the past.CBC was normal in February. She had an EGD and colonoscopy in March of 2024 that showed no obvious source of bleeding. Anemia is most likely secondary due to her menorrhagia.10/26/2024 Plantar wart (ICD-10 - B07.0)05/10/2025Iron deficiency anemia, unspecified (ICD- 10 - D50.9)06/14/2025arrett's esophagus without dysplasia (ICD-10 - K22.70)EGD on 03/27/2024 which showed 3 tongues of salmon-colored mucosa, medium hiatal hernia, nonbleeding diverticulum in the duodenum. Esophageal biopsies did show Barretts esophagus with no dysplasia. Gastric biopsies were negative for H. pylori. Duodenal biopsies were normal.She was diagnosed with a long segment of Barretts esophagus in March of 2024. At that time she had started on pantoprazole 20 mg b.i.d.. Symptoms are well-controlled however, she often forgets totake the medication. For compliance I have suggested changing the dose to pantoprazole 40 mg once aday. She just picked up a new bottle therefore she is going to try to take 2 of the pills in if symptoms are well-controlled she will let me know to change the dose otherwise she can go back to taking the medication twice a day. At this point she is due for a repeat EGD which we will schedule today. She has been advised to follow an anti-reflux regimen. We have also discussed the importance of smoking cessation.06/14/2025GERD (gastroesophageal reflux disease) (ICD-10 - K21.9)EGD on 03/27/2024 which showed 3 tongues of salmon-colored mucosa, medium hiatal hernia, nonbleeding diverticulum in the duodenum. Esophageal biopsies did show Barretts esophagus with no dysplasia. Gastric biopsies were negative for H. pylori. Duodenal biopsies were normal.06/14/2025Personal history of colon polyps, unspecified (ICD-10 - Z86.0100)colonoscopy on 03/27/2024 which showed large mouth diverticula in the sigmoid colon, grade 1 internal external hemorrhoids, 6 mm sessile serrated polyp in the transverse colon. Repeat colonoscopy wassuggested in 5 years.She is up-to-date with colon cancer screening. Plan Of Treatment Pending Test Test Name Order Date CMP (COMPLETE METABOLIC PANEL) HEMOGLOBIN A1C (GLYCO) 12/06/2023 LIPID PANEL (CHOL/TRIG/HDL/LDL) 12/06/19 CBC WITH DIFF (EXP 05/2025) 12/06/2023 Surgical Path (TTC) 07/05/2025 EGD 06/14/2025 EGD w/Colonoscopy 03/15/2024 Insulin Level 12/06/2023 CBC AUTO DIFF 01/02/2024 THYROID PANEL (T4/TSH/FREE T3) 4 ECHOCARDIO M/2D COMPLETE 12/06/2023 Next Appt Details Provider Name:Joi Mckeon, 06/20/2026 10:00:00 AM, [address], [address] [facility], [place], [address], Insurance Providers Payer Name Payer Address Payer Phone Subscriber Number Group Number Insured Name Patient Relationship to Insured Coverage Start Date Coverage End Date [facility] MED[facility] [address] [place] [address] [id number] Vishnu Avitia - patient is the [id number] 2023 Medical (General) History Medical History History ICD Code depression Surgical History Surgery Date(Month/Year) colonoscopy 2023 EGD 03/27/24
--- OUTSIDE RECORDS SUMMARY | 2025-07-10 16:13 | XMS_ITS | CCD ---
Author Organization [facility] Care Team Providers Care Gas Dispenser Name Role Phone REQUEST, DR NONE LISTED Primary Care Unavaila ble DORENE, DR ADAL Hedrick Consulting Unavailable CATHERINE, DR ADAL Hedrick Attending Unavailable DORENE, DR ADAL Hedrick Admitting Unavailable DONOVAN, DR MILDRED Simental Attending Unavailabl e DONOVAN, DR MILDRED Simental Admitting Unavailabl e DONOVAN, DR MILDRED Simental Consulting Unavailabl e REQUEST, NONE LISTED Primary Care Unavaila ble Results Test NameValueInterpretationReference RangeFacilityCBC AUTO DIFFon 12-13-2020 BASO #0.0 103/ulNormal0.0-0.1The Wilson HealthComment on above:Performed By: #### CBC #### [facility] [address] [address] Diandra KarenBasophils/100 WBC (Bld)0.1 %Critically low0.2-2.0The Wilson HealthComment on above:Performed By: #### CBC #### [facility] [address] [address] Diandra KarenEO #0.0 103/ulNormal0.0-0.7The Wilson HealthComment on above: Performed By: #### CBC #### [facility] [address] [address] Diandra KarenEosinophils/100 WBC (Bld)0.0 %Critically low0.9-7.0The Wilson HealthComment on above:Performed By: #### CBC #### [facility] [address] [id number] Diandra KarenErythrocyte distribution width (RBC) [Ratio]15.4 %Critically high 11.0-15.0The Wilson HealthComment on above:Performed By: #### CBC #### [facility] [address] [address] Diandra KarenHematocrit (Bld) [Volume fraction]38.0 %Zkiywf82.0-48.0The Wilson HealthComment on above:Performed By: #### CBC #### [facility] [address] [place] [address] Diandra KarenHemoglobin (Bld) [Mass/Vol]12.8 g/mSGmsdjy71.0-16.0The Wilson HealthComment on above:Performed By: #### CBC #### [facility] [address] [place] [address] Diandra KarenIG #0.03 10e3/ulNormal0.00-0.03The Wilson HealthComment on above:Performed By: #### CBC #### [facility] [address] [place] [address] Diandra KarenIG %0.3 %Normal0.0-0.5The Wilson HealthComment on above: Performed By: #### CBC #### [facility] [address] [place] [address] Diandra KarenLYMPH #0.7 103/ulCritically low1.2-3.8The Wilson HealthComment on above:Performed By: #### CBC #### [facility] [address] [place] [address] Diandra KarenLymphocytes/100 WBC (Bld)7.1 %Critically low20.5-60.0The Wilson HealthComment on above:Performed By: #### CBC #### [facility] [address] [place] [address] Diandra KarenMANUAL DIFF REQNONormalThe Wilson HealthComment on above: Performed By: #### CBC #### [facility] [address] [place] [address] Diandra KarenMCH (RBC) [Entitic mass]30.0 pzFtcuia51.7-34.0[facility] Comment on above:Performed By: #### CBC #### [facility] [address] [place] [address] Diandra KarenMCHC (RBC) [Mass/Vol]33.7 g/zAHnxljx25.9-35.2[facility] Comment on above:Performed By: #### CBC #### [facility] [address] [place] [address] Diandra KarenMCV (RBC) [Entitic vol]89.0 qTRsqilb32.0-99.0[facility] Comment on above:Performed By: #### CBC #### [facility] [address] [place] [address] Diandra KarenMONO #0.1 103/ulCritically low0.3-0.8The Wilson HealthComment on above:Performed By: #### CBC #### [facility] [address] [place] [address] Diandra KarenMonocytes/100 WBC (Bld)0.5 %Critically low1.7-12.0The Wilson HealthComment on above:Performed By: #### CBC #### [facility] [address] [place] [address] Diandra KarenNEUT #9.1 103/ulCritically high1.4-6.5The Wilson HealthComment on above:Performed By: #### CBC #### [facility] [address] [place] [address] Diandra KarenNeutrophils/100 WBC (Bld)92.0 %Critically high43.0-75.0The Wilson HealthComment on above:Performed By: #### CBC #### [facility] [address] [place] [address] Diandra KarenPlatelet mean volume (Bld) [Entitic vol]9.7 fLNormal9.5-13.5The Wilson HealthComment on above:Performed By: #### CBC #### [facility] [address] [place] [address] Diandra IlnrjEBM372 103/mkTfmnzp259-008Msd Wilson HealthComment on above: Performed By: #### CBC #### [facility] [address] [place] [address] Diandra KarenRBC4.27 106/ulNormal4.20-5.40The Wilson HealthComment on above: Performed By: #### CBC #### [facility] [address] [place] [address] Diandra KarenWBC9.9 103/ulNormal4.0-11.0The Wilson HealthComment on above: Performed By: #### CBC #### [facility] [address] [place] [address] Diandra KarenPROF 14(COMP METB)on [id number] [Mass/Vol]4.1 g/dLNormal 3.5-5.0The Wilson HealthComment on above:Performed By: #### CMP #### [facility] [address] [place] [address] Diandra KarenAlbumin/Globulin [Mass ratio]1.1 {ratio}NormalTrihealth Good Samaritan [facility] Comment on above:Performed By: #### CMP #### [facility] [address] [place] [address] Diandra KarenALP [Catalytic activity/Vol]76 U/MTsncpg86-449RwsTrihealth Good Samaritan Hospital Comment on above:Performed By: #### CMP #### [facility] [address] [place] [address] Diandra KarenALT [Catalytic activity/Vol]15 U/LNormal9-52[facility] Comment on above:Performed By: #### CMP #### [facility] [address] [place] [address] Diandra KarenAnion gap [Moles/Vol]19.7 mmol/LNormalThe Wilson HealthComment on above:Performed By: #### CMP #### [facility] [address] [place] [address] Diandra KarenAST [Catalytic activity/Vol]10 U/LCritically adq65-34Wmu Wilson HealthComment on above:Performed By: #### CMP #### [facility] [address] [place], [place] [id number] Diandra KarenBilirubin [Mass/Vol]0.1 mg/dLCritically low0.2-1.3The [facility] HealthComment on above:Performed By: #### CMP #### [facility] [address] [place] [address] Diandra KarenCalcium [Mass/Vol]9.3 mg/dLNormal8.4-10.2[facility] Comment on above:Performed By: #### CMP #### [facility] [address] [place] [address] Diandra KarenChloride [Moles/Vol]108 mmol/LCritically kspe57-966Rko Wilson HealthComment on above:Performed By: #### CMP #### [facility] [address] [place] [address] Diandra KarenCO2 [Moles/Vol]21.5 mmol/LCritically low22.0-30.0The Wilson HealthComment on above:Performed By: #### CMP #### [facility] [address] [place] [address] Diandra KarenCreatinine [Mass/Vol]0.68 mg/dLNormal0.52-1.04[facility] Comment on above:Performed By: #### CMP #### [facility] [address] [place] [address] Diandra KarenEGFR-AF BRUNEIAN>60Normal>=60The [facility] HealthComment on above: Performed By: #### CMP #### [facility] [address] [place] [address] Diandra KarenEGFR-NON AF BRUNEIAN>60Normal>=60The [facility] HealthComment on above:Performed By: #### CMP #### [facility] [address] [place] [address] Diandra KarenGlobulin (S) [Mass/Vol]3.7 g/dLNormalThe Wilson HealthComment on above:Performed By: #### CMP #### [facility] [address] [place], [place] [address] Diandra KarenGlucose [Mass/Vol]165 mg/dLCritically sytw68-613Ith Wilson HealthComment on above:Performed By: #### CMP #### [facility] [address] [address] Diandra KarenPotassium [Moles/Vol]4.2 mmol/LNormal3.4-5.0[facility] Comment on above:Performed By: #### CMP #### [facility] [address] [address] Diandra KarenProtein [Mass/Vol]7.8 g/dLNormal6.1-8.2The Wilson HealthComment on above:Performed By: #### CMP #### [facility] [address] [place] [address] Diandra KarenSodium [Moles/Vol]145 mmol/VNxctwy219-697Ldu [facility] Comment on above:Performed By: #### CMP #### [facility] [address] [place] [address] Diandra KarenUrea nitrogen [Mass/Vol]5.0 mg/dLCritically low7.0-17.0Tri[facility] Samaritan HospitalComment on above:Performed By: #### CMP #### [facility] [address] [place] [address] Diandra KarenUrea nitrogen/Creatinine [Mass ratio]7.4 mg/mgNoGeorgetown Behavioral HospitalComment on above:Performed By: #### CMP #### [facility] [address] [place] [address] Diandra KarenPROTIMEon [id number] Coag (PPP) [Relative time]{INR}NormalTrihealth Good Samaritan HospitalComment on above:Performed By: #### PTT, PT #### [facility] [address] [place], [place] [id number] Diandra KarenINR GUIDELINESSEE BELOWFirelands Regional Medical CenterComment on above: Result Comment: DESIRED INR: 2.0 - 3.0 CONDITIONS NOT LISTED BELOW 2.5 - 3.5 FOR PROSTHETIC HEART VALVE REPLACEMENT 2.5 - 3.5 RECURRENT THROMBOSISPerformed By: #### PTT, PT #### [facility] [address] [place], [place] [address] Diandar HaasPT Coag (PPP) [Time]10.0 sNormal9.0-11.6The Wilson HealthComment on above:Performed By: #### PTT, PT #### [facility] [address] [address] Diandra HaasPTTon 24-08-6360bTKZ Coag (Bld) [Time]24.1 tSruvwk70.3-36.2The Wilson HealthComment on above:Performed By: #### PTT, PT #### [facility] [address] [address] Diandra ColeenCYTOLOGYon [id number] #: [id number] Physician: SEAN REYES D.O.SPECIMEN SUBMITTEDA: CERVICAL, SCREENING, FLUID FINAL DIAGNOSISA. 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 Following automated imaging,selected morales from every slide are reviewed by a hereditary cancer program coordinator.ARI Mercedes(ASCP) (Electronic Signature) CLINICAL DATA HPV TESTING: YES, REFLEXClinicalHistory:ROUTINESTAINSA: CERVICAL, SCREENING, FLUID THIN PREP Myla Enrique M.D., LaboratoryDirectorPatient ID #: [id number] of Report: 04/15/2017Date of Procedure: 04/12/2017Date of Receipt: 04/13/2017Submitted by: SEAN REYES D.O.Location: Diagnostic interpretation performed at [facility], [address] [place] [address].The Pap Smear is a screening test for cervical cancer. False negativeresults occur with all screening tests, emphasizing the need forrescreening at recommended intervals, and clinical correlation.NormalFort Hamilton Hospital Reference LabComment on above: Performed By: #### C ####See report for performing lab information. Encounters Encounter DateEncounter TypeCare ProviderFacilityStart: 12-13-2020 End: [id number] NONE LISTED REQUESTFacility:Z3Dfxnz: 12-12-2020 End: [id number] MILDRED Simental SIMRANECKFacility:H1 Payers DatePayer CategoryPayerPolicy [id number] Summary Purpose Family History No Family History Records FoundNo Family History Records Found Advance Directives No Advanced Directives Records FoundNo Advanced Directives Records Found Additional Source Comments INFORMATION SOURCE (unrecogn ized section and content) DATE CREATED AUTHOR 01/04/2018 [facility] DATE CREATED AUTHOR AUTHOR'S ORGANIZ ATION 12/13/2020 [facility] FOR RECORDS PERTAINING TO PATIENTS WHO ARE [...] BE BASED ON THE PRIMARY CLINICAL RECORDS. [employer] [facility]. provides no warranty or guarantee of the accuracy or completeness of information in this document.
[2025-07-10 16:49] LABS: Thyroid Stimulating Hormone 2.068 uIU/mL (0.358-3.740)
== END 2025-07-10 16:09 | disposition home or self-care (01) ==
PROVIDERS: PCP Nurse Practitioner Family; Visit Provider Internal Medicine Hematology & Oncology
DX: D72.829 Elevated white blood cell count, unspecified (principal); D50.9 Iron deficiency anemia, unspecified; K90.9 Intestinal malabsorption, unspecified; Z80.9 Family history of malignant neoplasm, unspecified
CPT/HCPCS: 36415; 84439; 84443